=== PATIENT | male | born 1945 | race Caucasian/White ===

== ENCOUNTER → 2020-03-15 10:27 | Outpatient (CLI) | payer MEDICARE, SELFPAY ==
--- NOTE | 2020-03-15 10:33 | XR_ITS ---
PROCEDURE: XR CHEST 2V CLINICAL HISTORY: wheezing and crackles left base COMPARISON: No exams were available for comparison FINDINGS: The cardiomediastinal silhouette and pulmonary vascularity are within normal limits. The lungs are clear without infiltrates, suspicious nodules, or pleural effusions. There is a small to moderate size hiatal hernia seen through the cardiac shadow. There is a metallic nipple ring left-side. No acute bony abnormalities. There mild non recent compression fractures of 3 contiguous lower thoracic and or thoracolumbar vertebrae IMPRESSION: No acute findings. Dictated by: Dr. Miguel Garvin MD 03/15/2020 11:15 Dr. Miguel Garvin MD in [place] 03/15/2020 11:15
== END ==
PROVIDERS: PCP Family Medicine; Visit Provider Family Medicine
DX: J44.9 Chronic obstructive pulmonary disease, unspecified (principal)
CPT/HCPCS: 71046

== ENCOUNTER → 2020-04-11 15:07 | Outpatient (CLI) | payer MEDICARE, SELFPAY ==
[2020-04-11 15:18] LABS: Basophils % 0.7 % (0.1-2.0); Eosinophils # 0.1 K/mm3 (0.0-0.4); Eosinophils % 2.1 % (0.1-12.0); Hemoglobin 13.3 g/dL (14.1-18.0); Lymphocytes # 1.7 K/mm3 (0.7-4.5); Lymphocytes % 35.9 % (10-50); Mean Corpuscular HGB Conc 34.2 g/dL (31.8-35.4); Mean Corpuscular Hemoglobin 34.8 pg (27.0-31.2); Mean Corpuscular Volume 101.9 fl (80-94); Monocytes # 0.3 K/mm3 (0.1-1.0); Monocytes % 5.8 % (1.7-9.3); Neutrophils # 2.6 K/mm3 (1.8-7.8); Neutrophils % 55.5 % (37.0-80.0); Platelet Count 234 K/mm3 (142-424); Red Blood Count 3.83 M/mm3 (4.60-6.20); Red Cell Distribution Width 13.2 % (11.5-17.5); White Blood Count 4.6 K/mm3 (4.8-10.8)
[2020-04-11 15:35] LABS: Alanine Aminotransferase 14 U/L (12-78); Albumin Level 4.1 g/dl (3.5-5.0); Albumin/Globulin Ratio 1.6 (1.1-1.8); Alkaline Phosphatase 65 U/L (38-126); Anion Gap 11.2 mEq/L (5-15); Aspartate Amino Transferase 27 U/L (17-59); Bilirubin,Total 0.8 mg/dl (0.2-1.3); Blood Urea Nitrogen 12 mg/dl (9-20); Calcium 9.1 mg/dl (8.4-10.2); Carbon Dioxide 30 mmol/L (22.0-30.0); Chloride 97 mmol/L (98-107); Chol/HDL Ratio 2.9 (1-3.5); Cholesterol 270 mg/dl (140-200); Estimated Glomerular Filt Rate 110 ml/min (>60); GFR (African American) 133 ML/MIN (>60); Globulin 2.5 g/dL (1.3-3.2); Glucose 120 mg/dl (74-100); HDL Cholesterol 93 mg/dl (40-60); Potassium 4.2 mmoL/L (3.5-5.1); Sodium 134 mmol/L (136-145); Total Protein,Serum 6.6 g/dl (6.3-8.2); Triglycerides 128 mg/dl (30-150); VLDL Cholesterol 26 mg/dL (0-40)
[2020-04-11 15:46] LABS: Direct LDL Cholesterol 137.56 mg/dL (100-129)
[2020-04-11 16:06] LABS: Prostate Specific Ag Screen 6.8 ng/ml (0.0-4.0)
== END ==
PROVIDERS: Visit Provider Family Medicine
DX: I10 Essential (primary) hypertension (principal); J44.9 Chronic obstructive pulmonary disease, unspecified; Z12.5 Encounter for screening for malignant neoplasm of prostate
CPT/HCPCS: 80053; 80061; 85025; G0103

== ENCOUNTER → 2020-09-26 14:37 | Outpatient (CLI) | payer MEDICARE, SELFPAY ==
[2020-09-26 16:04] LABS: Basophils # 0.1 K/mm3 (0-0.2); Basophils % 1.3 % (0.1-2.0); Chloride 102 mmol/L (98-107); Eosinophils # 0.1 K/mm3 (0.0-0.4); Eosinophils % 1.8 % (0.1-12.0); Hematocrit 40.6 % (42.0-52.0); Hemoglobin 13.4 g/dL (14.1-18.0); Lymphocytes # 1.9 K/mm3 (0.7-4.5); Lymphocytes % 36.3 % (10-50); Mean Corpuscular Hemoglobin 33.2 pg (27.0-31.2); Mean Corpuscular Volume 100.5 fl (80-94); Mean Platelet Volume 9.6 fl (7.4-10.4); Monocytes # 0.3 K/mm3 (0.1-1.0); Monocytes % 4.9 % (1.7-9.3); Neutrophils # 2.9 K/mm3 (1.8-7.8); Neutrophils % 55.7 % (37.0-80.0); Platelet Count 303 K/mm3 (142-424); Red Blood Count 4.04 M/mm3 (4.60-6.20); Red Cell Distribution Width 13.5 % (11.5-17.5); Sodium 135 mmol/L (136-145); White Blood Count 5.2 K/mm3 (4.8-10.8)
[2020-09-26 16:05] LABS: Potassium 4.4 mmoL/L (3.5-5.1)
[2020-09-26 16:07] LABS: Alanine Aminotransferase 11 U/L (12-78); Albumin Level 4.2 g/dl (3.5-5.0); Albumin/Globulin Ratio 1.5 (1.1-1.8); Alkaline Phosphatase 72 U/L (38-126); Anion Gap 8.4 mEq/L (5-15); Aspartate Amino Transferase 23 U/L (17-59); Bilirubin,Total 0.8 mg/dl (0.2-1.3); Blood Urea Nitrogen 9 mg/dl (9-20); Carbon Dioxide 29 mmol/L (22.0-30.0); Cholesterol 239 mg/dl (140-200); Estimated Glomerular Filt Rate 110 ml/min (>60); GFR (African American) 133 ML/MIN (>60); Globulin 2.8 g/dL (1.3-3.2); Triglycerides 184 mg/dl (30-150); VLDL Cholesterol 37 mg/dL (0-40)
[2020-09-26 16:08] LABS: Calcium 9.3 mg/dl (8.4-10.2); Chol/HDL Ratio 3.1 (1-3.5); Glucose 109 mg/dl (74-100); HDL Cholesterol 78 mg/dl (40-60)
[2020-09-26 16:19] LABS: Direct LDL Cholesterol 114.28 mg/dL (100-129)
[2020-09-26 16:24] LABS: T4 (Thyroxine) 8.3 ug/dl (5.53-11.0)
[2020-09-26 16:37] LABS: Thyroid Stimulating Hormone 1.48 uIU/mL (0.465-4.68)
== END ==
PROVIDERS: Visit Provider Family Medicine
DX: N40.1 Benign prostatic hyperplasia with lower urinary tract symptoms (principal); N52.9 Male erectile dysfunction, unspecified; R97.20 Elevated prostate specific antigen [PSA]; G89.29 Other chronic pain; M25.511 Pain in right shoulder; R53.83 Other fatigue
CPT/HCPCS: 80053; 80061; 84436; 84443; 85025

== ENCOUNTER → 2020-10-17 14:18 | Outpatient (CLI) | payer MEDICARE, SELFPAY ==
[2020-10-17 16:58] LABS: Prostate Specific Ag, Diagnost 7.02 ng/ml (0.0-4.0)
== END ==
PROVIDERS: Visit Provider Family Medicine
DX: N40.1 Benign prostatic hyperplasia with lower urinary tract symptoms (principal); R39.14 Feeling of incomplete bladder emptying
CPT/HCPCS: 84153

== ENCOUNTER → 2021-03-27 11:21 | Outpatient (CLI) | payer MEDICARE, SELFPAY ==
--- NOTE | 2021-03-27 | CA_ITS ---
APPROVED REPORT Exam: Pharmacologic Technologist: Kayleigh Alvarado Ht: 4 ft 8 in Wt: 171 lbs BSA: 1.66 m2 HR: 63 bpm BP: 174/81 mmHg Medical History Medications: Lorazepam,,,,, Omeprazole,,,,, Metoprolol,,,,, Hydrocodone,,,,, Albuterol,,,,, Diclofenac,,,,, AZelastine,,,,, SilDENAFIL,,,,, Budesonide,,,,, TAdalafil,,,,, Furosemide,,,,, Stress Test Details Test: LEXISCAN HR Resting HR: 64 bpm Max Heart Rate (APMHR): 144.122660 bpm Max HR Achieved: 103 bpm Target HR (85% APMHR): 122.311243 bpm % of APMHR: 71.53 Recovery HR: 90 bpm BP Resting BP: 174.0/81.0 mmHg Max BP: 174.0/81.0 mmHg Recovery BP: 157.0/89.0 mmHg ECG Resting ECG: Normal Sinus Rhythm Clinical Reason for Termination: Completed Protocol Exercise duration: 04:04 min Highest Stage Achieved: Stress ECG Conclusion Non-diagnostic stress test. Patient received the infusion per protocol without chest pain, ST segment changes or arrhythmias. See the nuclear report for further information. Electronically signed by : Jimy Gillis MD 03/27/2021 19:35:19
--- NOTE | 2021-03-27 11:30 | NM_ITS ---
APPROVED REPORT Exam: Nuclear Stress Test Indication: chest pain..short of breath..fatigue Patient Location: Outpatient Stress Tech: Kayleigh Alvarado MD Tech:Wilda Weathers, ARRT, RT (R)(N) Ht: 5 ft 7 in Wt: 178 lbs HR: 63 bpm BP: 174/81 mmHg BSA: 1.92 m2 BMI: 27.8 History: chest pain..short of breath..fatigue Procedure: Patient received a 0.4 mg of intravenous Lexiscan, resting heart rate 63 bpm, resting blood pressure 174/81 mmHg, with Lexiscan maximum heart rate achived was 99 bpm which is Less than 85 % of the maximum predicted heart rate and blood pressure was 174/94 mmHg. With Lexiscan, patient denied any complaint of chest pain. Electrocardiogram Resting electrocardiogram showed sinus rhythm, with Lexiscan there is less than 1.[address] segment depression noted from the baseline EKG. The EKG portion of the Lexiscan is nondiagnostic. Cardiac Stress and Resting SPECT Images: Cardiac Stress and Resting SPECT images were obtained using technetium 99m Myoview 30.1 mCi stress and 10.31 mCi at rest. Gated SPECT for analysis of segmental wall motion and calculation of the ejection fraction also done. Cardiac stress and resting SPECT images show uniform myocardial activity without segmental perfusion abnormality, computer derived ejection fraction is 62% with no regional wall motion abnormality, right ventricle is normal size and contractility. Prone images were also obtained. Conclusion: 1. The EKG portion of the Lexiscan is nondiagnostic. 2. No scintigraphic evidence of reversible ischemia seen, compared right ejection fraction is 62% with no regional wall motion abnormality, right ventricle is normal size and contractility. 3. Normal Lexiscan Myoview study. Electronically signed by : Jimy Gillis MD 03/27/2021 19:39:18
--- NOTE | 2021-03-27 13:52 | HMH.ITSHM ---
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 []TRAZODONE SITAGLIPTIN SERTRALINE QUETIAPINE OMEPRAZOLE METOPROLOL METFORMIN LISINOPRIL GLIPIZIDE GABAPENTIN VITAMIN D2 VITAMIN D3 CANAGLIFLOZIN BUSPIRONE ATORVASTATIN ASA ALBUTEROL
== END ==
PROVIDERS: PCP Family Medicine; Visit Provider Family Medicine
DX: R07.9 Chest pain, unspecified (principal)
CPT/HCPCS: 78452; 93017; A9502; J2785

== ENCOUNTER → 2021-03-31 13:50 | Outpatient (CLI) | payer MEDICARE, SELFPAY ==
[2021-03-31 14:44] LABS: Basophils # 0.2 K/mm3 (0-0.2); Basophils % 2.8 % (0.1-2.0); Eosinophils # 0.2 K/mm3 (0.0-0.4); Eosinophils % 3.9 % (0.1-12.0); Hematocrit 43.2 % (42.0-52.0); Hemoglobin 14.2 g/dL (14.1-18.0); Lymphocytes # 2.1 K/mm3 (0.7-4.5); Lymphocytes % 38.4 % (10-50); Mean Corpuscular HGB Conc 32.9 g/dL (31.8-35.4); Mean Corpuscular Hemoglobin 34.3 pg (27.0-31.2); Mean Corpuscular Volume 104.3 fl (80-94); Mean Platelet Volume 9.8 fl (7.4-10.4); Monocytes # 0.2 K/mm3 (0.1-1.0); Monocytes % 4.4 % (1.7-9.3); Neutrophils # 2.7 K/mm3 (1.8-7.8); Neutrophils % 50.5 % (37.0-80.0); Platelet Count 305 K/mm3 (142-424); Red Blood Count 4.14 M/mm3 (4.60-6.20); Red Cell Distribution Width 13.6 % (11.5-17.5); White Blood Count 5.3 K/mm3 (4.8-10.8)
[2021-03-31 15:04] LABS: Chloride 98 mmol/L (98-107)
[2021-03-31 15:05] LABS: Potassium 4.6 mmoL/L (3.5-5.1); Sodium 136 mmol/L (136-145)
[2021-03-31 15:07] LABS: Alanine Aminotransferase 30 U/L (12-78); Albumin Level 4.4 g/dl (3.5-5.0); Albumin/Globulin Ratio 1.7 (1.1-1.8); Alkaline Phosphatase 73 U/L (38-126); Anion Gap 12.6 mEq/L (5-15); Aspartate Amino Transferase 32 U/L (17-59); Bilirubin,Total 0.6 mg/dl (0.2-1.3); Blood Urea Nitrogen 12 mg/dl (9-20); Carbon Dioxide 30 mmol/L (22.0-30.0); Cholesterol 217 mg/dl (140-200); Estimated Glomerular Filt Rate 94 ml/min (>60); GFR (African American) 114 ML/MIN (>60); Globulin 2.6 g/dL (1.3-3.2); Triglycerides 231 mg/dl (30-150); VLDL Cholesterol 46 mg/dL (0-40)
[2021-03-31 15:08] LABS: Chol/HDL Ratio 3.4 (1-3.5); Glucose 104 mg/dl (74-100); HDL Cholesterol 64 mg/dl (40-60)
[2021-03-31 15:19] LABS: Direct LDL Cholesterol 96.02 mg/dL (100-129)
[2021-03-31 21:29] LABS: Prostate Specific Ag, Diagnost 6.76 ng/ml (0.0-4.0)
== END ==
PROVIDERS: Visit Provider Family Medicine
DX: M25.511 Pain in right shoulder (principal); F41.9 Anxiety disorder, unspecified; E78.5 Hyperlipidemia, unspecified; R97.20 Elevated prostate specific antigen [PSA]
CPT/HCPCS: 80053; 80061; 84153; 85025

== ENCOUNTER → 2021-10-24 13:31 | Outpatient (CLI) | payer MEDICARE, SELFPAY ==
[2021-10-24 13:22] LABS: Basophils # 0.1 K/mm3 (0-0.2); Basophils % 1.4 % (0.1-2.0); Eosinophils # 0.1 K/mm3 (0.0-0.4); Hematocrit 42.6 % (42.0-52.0); Hemoglobin 13.6 g/dL (14.1-18.0); Lymphocytes # 1.6 K/mm3 (0.7-4.5); Lymphocytes % 35.6 % (10-50); Mean Corpuscular HGB Conc 31.9 g/dL (31.8-35.4); Mean Corpuscular Hemoglobin 34.5 pg (27.0-31.2); Mean Corpuscular Volume 108.1 fl (80-94); Mean Platelet Volume 9.7 fl (7.4-10.4); Monocytes # 0.2 K/mm3 (0.1-1.0); Monocytes % 4.3 % (1.7-9.3); Neutrophils # 2.7 K/mm3 (1.8-7.8); Neutrophils % 57.7 % (37.0-80.0); Platelet Count 291 K/mm3 (142-424); Red Blood Count 3.94 M/mm3 (4.60-6.20); Red Cell Distribution Width 15.2 % (11.5-17.5); White Blood Count 4.6 K/mm3 (4.8-10.8)
[2021-10-24 13:42] LABS: Alanine Aminotransferase 27 U/L (12-78); Albumin Level 4.8 g/dl (3.5-5.0); Alkaline Phosphatase 74 U/L (38-126); Anion Gap 11.2 mEq/L (5-15); Aspartate Amino Transferase 32 U/L (17-59); Bilirubin,Total 0.8 mg/dl (0.2-1.3); Blood Urea Nitrogen 16 mg/dl (9-20); Calcium 8.8 mg/dl (8.4-10.2); Carbon Dioxide 28 mmol/L (22.0-30.0); Chloride 99 mmol/L (98-107); Chol/HDL Ratio 2.7 (1-3.5); Cholesterol 243 mg/dl (140-200); Estimated Glomerular Filt Rate 94 ml/min (>60); GFR (African American) 114 ML/MIN (>60); Globulin 2.4 g/dL (1.3-3.2); Glucose 96 mg/dl (74-100); HDL Cholesterol 90 mg/dl (40-60); Potassium 4.2 mmoL/L (3.5-5.1); Sodium 134 mmol/L (136-145); Total Protein,Serum 7.2 g/dl (6.3-8.2); Triglycerides 141 mg/dl (30-150); VLDL Cholesterol 28 mg/dL (0-40)
[2021-10-24 13:53] LABS: Direct LDL Cholesterol 110.24 mg/dL (100-129)
[2021-10-24 14:14] LABS: Prostate Specific Ag Screen 8.2 ng/ml (0.0-4.0); Thyroid Stimulating Hormone 2.24 uIU/mL (0.465-4.68)
== END ==
PROVIDERS: Visit Provider Family Medicine
DX: M25.511 Pain in right shoulder (principal); Z87.898 Personal history of other specified conditions; R53.83 Other fatigue; R97.20 Elevated prostate specific antigen [PSA]; N52.9 Male erectile dysfunction, unspecified; Z12.5 Encounter for screening for malignant neoplasm of prostate
CPT/HCPCS: 80053; 80061; 84443; 85025; G0103

== ENCOUNTER → 2023-07-23 23:08 | Outpatient (CLI) | payer MEDICARE, SELFPAY ==
[2023-07-23 22:52] LABS: Amphetamine/Metha Screen,Urine Negative ng/ml (<1000); Barbiturates Screen,Urine Negative ng/ml (<200); Benzodiazepines Screen,Urine Negative ng/ml (<200); Cannabinoid Screen,Urine Negative ng/ml (<50); Cocaine Screen,Urine Negative ng/ml (<300); Methadone Screen,Urine Negative ng/ml (<300); Opiate Screen,Urine Positive ng/ml (<300); Phencyclidine Screen,Urine Negative ng/ml (<25)
== END ==
PROVIDERS: PCP Family Medicine; Visit Provider Family Medicine
DX: M25.511 Pain in right shoulder (principal); Z79.899 Other long term (current) drug therapy
CPT/HCPCS: 80305

== ENCOUNTER 2023-07-30 09:30 | Outpatient (RCR) | payer MEDICARE, SELFPAY ==
--- NOTE | 2023-07-08 13:47 | HMH.PTOPWND ---
Rehab Outpt Wound Evaluation Rehab OP Wound Evaluation Start: 07/08/23 12:58 Freq: Status: Active Protocol: Document 07/08/23 13:40 PHONAKUL (Rec: 07/08/23 13:47 PHORNE [id number]) E-signed By Dhiraj Pope, PT Subjective/History History History This is the initial PT eval for Rolf Benito, 78 yowm who presents with chronic wound of the L vora x ~ 4 mos. He reports, A welding cart fell over on me and scraped my leg. He reports hx of COPD, prostate cancer with XRT, and L hip OA. Subjective Subjective He reports failry consistent pain in the L LE wound 12/05. 2 + pitting edema noted in B LE. New diagnosis of cancer in past 12 No months? Wound Eval Wound Left Vora Wound Type Skin Tear Is This a Chronic Wound Yes Wound Length (cm) 5.0 Wound Width (cm) 2.5 Wound Depth (cm) 0.2 Wound Bed Appearance Beefy Red,Yellow Percentage Granulated (%) 50 Percentage of Slough (%) 50 Wound Margins Description Well Defined Surrounding Tissue Appearance [place] Edema Type Pitting Edema Degree 2+ Query Text:1+ Trace, Barely Detectable, Rebound 15-30 seconds 2+ Moderate, Slight Indentation, Rebound 10-20 seconds 3+ Deep, Deeper Indentation, Rebound > 30 seconds 4+ Very Deep, Rebound > 60 seconds Drainage Description Serous Drainage Amount Moderate Wound Topical Solution/Irrigant Saline Irrigant Primary Dressing Silver Dressing Comment therahoney gel, Opticell Ag Wound Secondary Dressing Type Composite Comment optifoam gentle SA Wound Debridement Amount of Tissue Minimal Removed Dressing Change Patient Tolerance Tolerated Well Wound Problems/Impairments Impairments Problems/Impairmments Palpation Tenderness,Impaired Gait Pattern,Impaired Walking, Impaired Household Care, Increased Edema,Lymphedema Present,Wound Care Needs, Subjective C/O Pain,Impaired Self Care/Self Management Prognosis Rehab Potential Good Clinical Impression Consistent with Diagnosis Yes Short Term Goals Number of Weeks 2 Decrease Edema Yes: 1+ pitting edema Decrease Wound Area Yes: by 25% Decrease Subjective C/O Pain Yes: 11/05 Assistant Track And Field Coach Goals Number of Weeks 4 Decrease Edema Yes: no pitting edema Decrease Wound Area Yes: by 75% Decrease Subjective C/O Pain Yes: 09/07 Patient to be Ind w/ Home Wound Care/ Yes Dressing Changes Outpatient Therapy Plan of Care Treatment Plan May Include Therapeutic Exercise Including Home Yes Exercise Program Manual Therapy Techniques Yes Neuromuscular Re-education Yes Therapeutic Activities to Return to Yes Previous Functional/Work Level ADL/Self Care Education Yes Manual Lymphatic Drainage Yes Wound Care Yes Eval/Re-Eval Yes Frequency Times per week 1-2 Duration Number of Weeks 4 Addendums This patient is a candidate for social No or vocational rehab? Patient/Guardian verbally acknowledges Yes understanding of treatment program and consents to further treatment? Patient/Guardian verbally acknowledges Yes understanding of diagnosis, prognosis and goals for treatment? Eval Complexity PT Charges 00998 - High Complexity PHYSICIAN CERTIFICATION: I certify the specified therapy services for Rolf Benito are required, authorized, and reviewed every 30 days.
== END 2023-07-30 10:30 | disposition home or self-care (01) ==
LOC: PT 09:30
PROVIDERS: PCP Family Medicine; Visit Provider Family Medicine
DX: M79.662 Pain in left lower leg (principal); S81.802A Unspecified open wound, left lower leg, initial encounter
CPT/HCPCS: 97163; 97597

== ENCOUNTER 2023-09-06 21:49 | Outpatient (CLI) | payer MEDICARE, SELFPAY ==
[2023-09-06 22:38] LABS: Chloride 105 mmol/L (98-107)
[2023-09-06 22:39] LABS: Potassium 5.5 mmoL/L (3.5-5.1); Sodium 134 mmol/L (136-145)
[2023-09-06 22:41] LABS: Alanine Aminotransferase 18 U/L (12-78); Alkaline Phosphatase 111 U/L (38-126); Anion Gap 7.5 mEq/L (5-15); Aspartate Amino Transferase 38 U/L (17-59); Bilirubin,Total 0.3 mg/dl (0.2-1.3); Blood Urea Nitrogen 13 mg/dl (9-20); Carbon Dioxide 27 mmol/L (22.0-30.0); Estimated Glomerular Filt Rate 93 ml/min (>60); GFR (African American) 113 ML/MIN (>60)
[2023-09-06 22:42] LABS: Albumin Level 3.7 g/dl (3.5-5.0); Albumin/Globulin Ratio 1.7 (1.1-1.8); Calcium 8.6 mg/dl (8.4-10.2); Globulin 2.2 g/dL (1.3-3.2); Glucose 93 mg/dl (74-100); Total Protein,Serum 5.9 g/dl (6.3-8.2)
== END 2023-09-06 23:59 ==
LOC: LAB.DROPOF 21:50
PROVIDERS: PCP Family Medicine; Visit Provider Family Medicine
DX: Z79.899 Other long term (current) drug therapy (principal)
CPT/HCPCS: 80053

== ENCOUNTER 2024-08-07 10:33 | Outpatient (CLI) | payer MEDICARE, SELFPAY ==
[2024-08-07 18:08] LABS: Basophils # 0.1 K/mm3 (0-0.2); Basophils % 1.3 % (0.1-2.0); Eosinophils # 0.2 K/mm3 (0.0-0.4); Eosinophils % 2.9 % (0.1-12.0); Hematocrit 31.8 % (42.0-52.0); Hemoglobin 10.6 g/dL (14.1-18.0); Lymphocytes # 1.7 K/mm3 (0.7-4.5); Lymphocytes % 30.2 % (10-50); Mean Corpuscular HGB Conc 33.3 g/dL (31.8-35.4); Mean Corpuscular Hemoglobin 33.4 pg (27.0-31.2); Mean Corpuscular Volume 100.3 fl (80-94); Mean Platelet Volume 11.2 fl (7.4-10.4); Monocytes # 0.6 K/mm3 (0.1-1.0); Monocytes % 9.9 % (1.7-9.3); Neutrophils # 3.1 K/mm3 (1.8-7.8); Neutrophils % 55.3 % (37.0-80.0); Platelet Count 277 K/mm3 (142-424); Red Blood Count 3.17 M/mm3 (4.60-6.20); White Blood Count 5.6 K/mm3 (4.8-10.8)
[2024-08-07 18:32] LABS: Alanine Aminotransferase 21 U/L (12-78); Albumin Level 4.1 g/dl (3.5-5.0); Albumin/Globulin Ratio 2.3 (1.1-1.8); Alkaline Phosphatase 75 U/L (38-126); Anion Gap 10.2 mEq/L (5-15); Aspartate Amino Transferase 30 U/L (17-59); Bilirubin,Total 0.2 mg/dl (0.2-1.3); Blood Urea Nitrogen 17 mg/dl (9-20); Carbon Dioxide 28 mmol/L (22.0-30.0); Chloride 99 mmol/L (98-107); Estimated Glomerular Filt Rate 81 ml/min (>60); GFR (African American) 98 ML/MIN (>60); Globulin 1.8 g/dL (1.3-3.2); Glucose 98 mg/dl (74-100); Potassium 4.2 mmoL/L (3.5-5.1); Sodium 133 mmol/L (136-145); Total Protein,Serum 5.9 g/dl (6.3-8.2)
[2024-08-07 19:02] LABS: Prostate Specific Ag Screen 0.4 ng/ml (0.0-4.0)
== END 2024-08-07 23:59 | disposition home or self-care (01) ==
LOC: LAB.DROPOF 08-10 10:35
PROVIDERS: PCP Family Medicine; Visit Provider Family Medicine
DX: Z12.5 Encounter for screening for malignant neoplasm of prostate (principal); M21.372 Foot drop, left foot
CPT/HCPCS: 80053; 85025; G0103

== ENCOUNTER 2025-04-16 10:36 | Outpatient (CLI) | payer MEDICARE, SELFPAY ==
--- OUTSIDE RECORDS SUMMARY | 2025-02-23 11:03 | XMS_ITS | Encounter Summary ---
Author Organization [place] [address] Care Team Providers Care Truck Rental Manager Name Role Phone Rolf Joel MD Primary Care Provider Bj Whitfield MD Unavailable [phone] Encounter Details Date Type Department Care Team (Latest Contact Info) Description 02/23/2025 11:03 AM EDT - 02/23/2025 11:59 PM EDT Hospital Encounter ALEXANDER Chavez [facility] [address] [place] [address] Acute systolic heart failure (HCC); NSTEMI (non-ST elevated myocardial infarction) (HCC); Primary hypertension; Pure hypercholesterolemia Discharge Disposition: Home or Self Care Social History Tobacco Use Types Packs/Day Years Used Date Smoking Tobacco: Never Smokeless Tobacco: Never Alcohol Use Standard Drinks/Week Comments Yes 6 (1 standard drink = 0.6 oz pur e alcohol) [facility] Utilities Answer Date Recorded In the past 12 months has [employer], gas, oil, or water [employer] threatened to shut off services in your home? No 10/26/2024 Overall Financial Resource Strain (CARDIA) Answe r Date Recorded How hard is it for you to pa y for the very basics like food, housing, medical care, and heating? Not hard at all 10/26/2024 PHQ-2 Answer Date Recorded PHQ-2 Total Score 0 10/26/2024 [facility] Occupat ional [facility] - Occupational Stress Questionnaire Answer Date Recorded Do you feel stress - tense, restless, nervous, or anxious, or unable to sleep at night because your mind is troubled all the time - these days? Not at all 10/26/2024 Exercise Vital Sign Answer Date Recorde d On average, how many days pe r week do you engage in moderate to strenuous exercise (like a brisk walk)? 2 days 10/26/2024 On average, how many minutes do you engage in exercise at this level? 20 min 10/26/2024 Hunger Vital Sign Answer Date Recorded Within the past 12 months, y ou worried that your food would run out before you got the money to buy more. Never true 10/27/19 25 Within the past 12 months, t he food you bought just didn't last and you didn't have money to get more. Never true 10/26/2024 [facility] IP Transportation Answer D ate Recorded In the past 12 months, has l ack of reliable transportation kept you from medical appointments, meetings, work or from getting things needed for daily living? No 10/26/2024 Sex and Gender Information Value Date Recorded Sex Assigned at Not on file Legal Sex Male 10:22 AM ANURADHA Gender Identity Not on file Sexual Orientation Not on file documented as of this encounter Functional Status * Is the person deaf or does he/she have serious difficulty hearing? Answer Date of Assessment Author No 10/26/2024 9:36 AM Valerie Chang RN * Is the person blind or does he/she have serious difficulty seeing even when wearing glasses? Answer Date of Assessment Author No 10/26/2024 9:36 AM Valerie Chang RN * Does this person have serious difficulty walking or climbing stairs? Answer Date of Assessment Author No 10/26/2024 9:36 AM Valerie Chang RN * Does this person have difficulty dressing or bathing? Answer Date of Assessment Author No 10/26/2024 9:36 AM Valerie Chang RN * Because of a physical, mental or emotional condition, does this person have difficulty doing errands alone such as visiting a doctor's office or shopping? Answer Date of Assessment Author No 10/26/2024 9:36 AM Valerie Chang RN documented as of this encounter Mental Status * Because of a physical, mental or emotional condition, does this person have serious difficulty concentrating, remembering or making decisions? Answer Entry Date Author No 10/26/2024 9:36 AM EDT Valerie French RN documented in this encounter Medications at Time of Discharge aspirin 81 mg Oral Tablet, Chewable Take 1 Tablet by mouth daily. 30 Tablet 07/31/2023 atorvastatin (LIPITOR) 40 mg Oral Tablet Take 1 Tablet by mouth nightly. 90 Tablet 3 10/27/2024 1:10 PM EDT 10/27/2024 clopidogreL (PLAVIX) 75 mg Oral Tablet Take 1 Tablet by mouth daily. 90 Tablet 3 10/27/2024 1:10 PM EDT 10/28/2024 diclofenac (VOLTAREN) 75 mg Oral Tablet, Delayed Release (E.C.) Take 1 Tablet by mouth every morning. 100 mg. TALK with Your MD for alternative if any. 10/27/2024 docusate sodium (COLACE) 100 mg Oral CapsuleIndication s:S/P total left hip arthroplasty TAKE 1 CAPSULE BY MOUTH TWICE A DAY NEEDED FOR CONSTIPATION 30 Capsule 10/18/2023 fluticasone propionate (FLONASE) 50 mcg/actuation Nasl Mermentau, Suspension daily as needed. 12/19/2021 HYDROcodone-aceta minophen (NORCO) 10-325 mg Oral TabletIndications :pain Take 1 Tablet by mouth every 6 hours as needed for Chronic Pain (G89.29). Chronic back and hip pain Indications: pain LORazepam (ATIVAN) 1 mg Oral Tablet Take 1 mg by mouth every 12 hours as needed. losartan (COZAAR) 25 mg Oral Tablet Take 1 Tablet by mouth daily. 30 Tablet 11 10/27/2024 1:10 PM EDT 10/28/2024 metoprolol succinate ER (TOPROL-XL) 100 mg Oral Tablet Sustained Release 24 hr Take 100 mg by mouth daily. 08/10/2024 nalOXone (NARCAN) 4 mg/actuation Nasl Mermentau, Non-Aerosol 0.1 mL by Nasal route as needed for Opioid Reversal. 1 Each 07/31/2023 pantoprazole (PROTONIX) 40 mg Oral Tablet, Delayed Release (E.C.) Take 1 Tablet by mouth 2 times daily. 180 Tablet 3 10/27/2024 1:10 PM EDT 10/27/2024 rOPINIRole (REQUIP) 1 mg Oral TabletIndications :restless leg syndrome Take 1 mg by mouth 2 times daily as needed for Other (takes at HS). Indications: restless legs syndrome, an extreme discomfort in the calf muscles when sitting or lying down spironolactone (ALDACTONE) 25 mg Oral Tablet Take one-half tablet (12.5 mg) by mouth daily. 15 Tablet 11 10/27/2024 1:10 PM EDT 10/28/2024 tamsulosin (FLOMAX) 0.4 mg Oral CapsuleIndication s:Prostate cancer (HCC) Take 1 Capsule by mouth daily. 90 Capsule 3 11/21/2022 testosterone cypionate (DEPOTESTOTERONE CYPIONATE) 200 mg/mL IM Oil Inject 200 mg into the muscle every 14 days. 10/07/2024 torsemide (DEMADEX) 20 mg Oral TabletIndications :Shortness of breath,Acute on chronic diastolic heart failure (HCC) Take 1 Tablet by mouth daily. 30 Tablet 11 01/24/2023 documented as of this encounter Discharge Disposition Disposition Code Departure Means Destination Home or Self Care documented in this encounter Plan of Treatment Upcoming Encounters Date Type Department Care Team (Late st Contact Info) Description 05/10/2025 9:45 AM EDT Appointment [facility] [address] [facility] [address] [place] [address] Paris Fontaine, POWDERED METAL SUPERVISOR [address] [address] 07/15/2025 10:45 AM EST Office Visit [facility] [address] [place] [address] Dhiraj Wallace MD [address] [address] documented as of this encounter Procedures Procedure Name Priority Date/Time Associated Diagnosis Comments LIPID PANEL REFLEX Routine 02/23/2025 11:04 AM EDT Pure hypercholesterolemia CBC Routine 02/23/2025 11:04 AM EDT Primary hypertension COMPREHENSIVE METABOLIC PANEL Routine 02/23/2025 11:04 AM EDT Primary hypertension documented in this encounter Results * (ABNORMAL) CBC (02/23/2025 11:04 AM EDT) Pathologist [facility] WBC 7.6 3.7 - 10.3 x10(3)/mcL 02/23/2025 4:04 PM EDT [facility] RBC 3.38(L) 4.60 - 6.10 x10(6)/mcL 02/23/2025 4:04 PM EDT [facility] Hgb 11.7(L) 13.7 - 17.5 g/dL 02/23/2025 4:04 PM EDT [facility] Hct 34.8(L) 40.0 - 51.0 % 02/23/2025 4:04 PM EDT [facility] MCV 103.0(H) 80.0 - 100.0 fL 02/23/2025 4:04 PM EDT [facility] MCH 34.6(H) 26.0 - 34.0 pg 02/23/2025 4:04 PM EDT [facility] MCHC 33.6 30.7 - 35.5 g/dL 02/23/2025 4:04 PM EDT [facility] RDW 15.7(H) <=14.9 % 02/23/2025 4:04 PM EDT [facility] Platelet 252 155 - 369 x10(3)/mcL 02/23/2025 4:04 PM EDT [facility] MPV 10.5 8.8 - 12.5 fL 02/23/2025 4:04 PM EDT [facility] Blood VENOUS BLOOD / Unknown Venipuncture / Unknown 02/23/2025 11:04 AM EDT 02/23/2025 11:05 AM EDT us Charisse Barry RPG PROGRAMMER HEMATOLOGY ORDERABLES Final Result [facility] [address] [facility] , [place] [address] * LIPID PANEL REFLEX (02/23/2025 11:04 AM EDT) Pathologist [facility] Cholesterol 111 <200 mg/dL 02/23/2025 6:26 PM EDT [facility] Comment: < 200 Desirable 200 - 239 Borderline High >= 240 High Triglyceride 78 <150 mg/dL 02/23/2025 6:26 PM EDT [facility] Comment: < 150 Normal 150 - 199 Borderline High 200 - 499 High >= 500 Very High HDL 53 >=40 mg/dL 02/23/2025 6:26 PM EDT [facility] Comment: > 60 Optimal 40 - 60 Acceptable < 40 Low LDL Calculated 42 <100 mg/dL 02/23/2025 6:26 PM EDT [facility], [facility] Comment: < 100 Optimal 100 - 129 Near or above optimal 130 - 159 Borderline High 160 - 189 High >= 190 Very High The National Institutes of Health (NIH) equation is used for all lipid panels that report calculated LDL (LDL-C). Non-HDL-C Calculated 58 <=129 mg/dL 02/23/2025 6:26 PM EDT [facility], [facility] Comment: <130 Desirable 130-159 Above Desirable 160-189 Borderline High 190-219 High >= 220 Very High Fasting Specimen? No None 025 6:26 PM EDT [facility], [facility] Blood VENOUS BLOOD / Unknown Venipuncture / Unknown 02/23/2025 11:04 AM EDT 02/23/2025 11:05 AM EDT us Charisse Barry RPG PROGRAMMER CHEMISTRY ORDERABLES Final R esult [facility] [address] , [place] [address] * (ABNORMAL) COMPREHENSIVE METABOLIC PANEL (02/23/2025 11:04 AM EDT) Sodium 134(L) 136 - 145 mmol/L 02/23/2025 6:26 PM EDT [facility] Potassium 3.4(L) 3.5 - 5.0 mmol/L 02/23/2025 6:26 PM EDT [facility] Chloride 94(L) 98 - 107 mmol/L 02/23/2025 6:26 PM EDT [facility] Total CO2 28 22 - 29 mmol/L 02/23/2025 6:26 PM EDT [facility] Anion Gap 12 7 - 16 mmol/L 02/23/2025 6:26 PM EDT [facility] Calcium 8.9 8.8 - 10.4 mg/dL 02/23/2025 6:26 PM EDT [facility] Glucose Lvl 146(H) 70 - 99 mg/dL 02/23/2025 6:26 PM EDT [facility] BUN 10 8 - 23 mg/dL 02/23/2025 6:26 PM EDT [facility] Creatinine 0.88 0.67 - 1.30 mg/dL 02/23/2025 6:26 PM EDT [facility] Albumin 4.0 3.2 - 4.6 gm/dL 02/23/2025 6:26 PM EDT [facility] Total Protein 6.1(L) 6.4 - 8.3 gm/dL 02/23/2025 6:26 PM EDT [facility] Bili Total 0.9 0.2 - 1.4 mg/dL 02/23/2025 6:26 PM EDT [facility] ALT 15 <=41 U/L 02/23/2025 6:26 PM EDT [facility] AST 18 <=40 U/L 02/23/2025 6:26 PM EDT [facility] Alk Phos 69 40 - 129 U/L 02/23/2025 6:26 PM EDT [facility] eGFR (CKD-EPIcr 2020) 87 >=60 mL/min/1.7 3 m2 02/23/2025 6:26 PM EDT [facility] Comment:Estimated GFR was ca lculated using the CKD-EPIcr (2020) equation refit without race. The equation is recommended by the National Kidney Foundation - [place] Society of Nephrology Task Force. Blood VENOUS BLOOD / Unknown Venipuncture / Unknown 02/23/2025 11:04 AM EDT 02/23/2025 11:05 AM EDT us Charisse Barry RPG PROGRAMMER CHEMISTRY ORDERABLES Final R esult [facility] [address] [facility] [facility] , [address] [place], [place] [id number] documented in this encounter Visit Diagnoses Diagnosis Acute systolic heart failure (HCC) Acute systolic heart failure NSTEMI (non-ST elevated myocardial infarction) (HCC) Acute myocardial infarction, subendocardial infarction, episode of care unspecified Primary hypertension Unspecified essential hypertension Pure hypercholesterolemia documented in this encounter Orders Lab Orders Without Results Count Last Ordered D ate First Ordered Date BASIC METABOLIC PANEL 1 02/23/2025 documented in this encounter Additional Health Concerns Assessment Noted Time A fall risk assessment has been complete d for the patient 09/20/2022 8:28 AM EST documented as of this encounter Care Teams Truck Rental Manager Relationship Specialty Start Date End Date Rolf Joel MD PCP - General Family Medicine 03/15/15 Bj Gramajo MD [address] [facility] [place], [place] [id number] Radiation Oncologist Radiology-Radiation Oncology 11/03/24 documented as of this encounter
[2025-04-16 15:05] LABS: Hematocrit 37.8 % (42.0-52.0); Hemoglobin 12.6 g/dL (14.1-18.0); Immature Granulocytes % 0.4 %; Mean Corpuscular HGB Conc 33.3 g/dL (31.8-35.4); Mean Corpuscular Hemoglobin 34.6 pg (27.0-31.2); Mean Corpuscular Volume 103.8 fl (80-94); Nucleated Red Blood Cells % 0 %; Platelet Count 259 K/mm3 (142-424); Red Blood Count 3.64 M/mm3 (4.60-6.20); Red Cell Distribution Width-SD 58.7 fL; White Blood Count 5.0 K/mm3 (4.8-10.8)
[2025-04-16 15:27] LABS: Albumin Level 4.1 g/dl (3.5-5.0); Chloride 96 mmol/L (98-107); Sodium 135 mmol/L (136-145)
[2025-04-16 15:28] LABS: Potassium 3.7 mmoL/L (3.5-5.1)
[2025-04-16 15:30] LABS: Alanine Aminotransferase 18 U/L (12-78); Albumin/Globulin Ratio 2.0 (1.1-1.8); Anion Gap 13.7 mEq/L (5-15); Aspartate Amino Transferase 41 U/L (17-59); Blood Urea Nitrogen 16 mg/dl (9-20); Carbon Dioxide 29 mmol/L (22.0-30.0); Creatinine,Serum 0.90 mg/dl (0.66-1.25); Estimated Glomerular Filt Rate 81 ml/min (>60); GFR (African American) 98 ML/MIN (>60); Globulin 2.1 g/dL (1.3-3.2); Total Protein,Serum 6.2 g/dl (6.3-8.2)
[2025-04-16 15:31] LABS: Alkaline Phosphatase 71 U/L (38-126); Bilirubin,Total 1.2 mg/dl (0.2-1.3); Calcium 8.8 mg/dl (8.4-10.2); Cholesterol 112 mg/dl (140-200); Glucose 97 mg/dl (74-100); HDL Cholesterol 58 mg/dl (40-60); Triglycerides 89 mg/dl (30-150)
[2025-04-16 16:18] LABS: Hepatitis C Ab Qual. W/ RFX NEGATIVE (Negative)
[2025-04-18 08:15] LABS: Hepatitis B Surface Antigen Negative (Negative); Testosterone,Total 748 ng/dL (264-916)
--- OUTSIDE RECORDS SUMMARY | 2025-04-19 10:26 | XMS_ITS | Encounter Summary ---
Author Organization [place] [address] Care Team Providers Care Rotating Field Assembler Name Role Phone Rolf Joel MD Primary Care Provider Nadine Moran RN Unavailable [phone] Bj Gramajo MD Unavailable [phone] Encounter Details Date Type Department Care Team (Late Contact Info) Description 08/10/[address] [facility] [address] [facility] [address] [facility] Zurdo Corley MD [address] [place] [address] Social History Tobacco Use Types Packs/Day Years Used Date Smoking Tobacco: Never Smokeless Tobacco: Never Alcohol Use Standard Drinks/Week Comments Yes 12 (1 standard drink = 0.6 oz pu re alcohol) Sex and Gender Information Value Date Recorded Sex Assigned at Not on file Legal Sex Male 10:22 AM EDT Gender Identity Not on file Sexual Orientation Not on file COVID-19 Exposure Response Date Recorded In the last 10 days, have yo u been in contact with someone who was confirmed or suspected to have Coronavirus/COVID-19? No / Unsure 08/10/2022 2:25 PM EST documented as of this encounter Plan of Treatment Upcoming Encounters Date Type Department Care Team (Late Contact Info) Description 05/10/2025 9:45 AM EDT Appointment [facility] [address] [place] [address] Paris Fontaine, ROCK LOADER [address] [place] [address] [place] [address] 07/15/2025 10:45 AM EST Office Visit [facility] [address] [place] [address] Dhiraj Wallace MD [address] [place] [address] documented as of this encounter Visit Diagnoses Not on filedocumented in this encounter Care Teams Rotating Field Assembler Relationship Specialty Start Date End Date Rolf Joel MD PCP - General Family Medicine 03/15/15 Nadine Garcia, RN Oncology Nurse Navigator 09/24/22 12/25/22 Bj Gramajo MD [address] [facility] [place] [address] Radiation Oncologist Radiology-Radiation Oncology 11/03/24 documented as of this encounter
--- OUTSIDE RECORDS SUMMARY | 2025-04-19 10:27 | XMS_ITS | Encounter Summary ---
Author Organization [place] [address] Care Team Providers Care Board Member Name Role Phone Rolf Joel MD Primary Care Provider Bj Whitfield MD Unavailable [phone] Encounter Details Date Type Department Care Team (Latest Contact Info) Description 02/25/2025 Results Follow-Up [facility] [address] [place] [address] Charisse Barry, [employer] [address] [place] [address] COMPREHENSIVE METABOLIC PANEL, LIPID PANEL REFLEX, CBC Social History Tobacco Use Types Packs/Day Years Used Date Smoking Tobacco: Never Smokeless Tobacco: Never Alcohol Use Standard Drinks/Week Comments Yes 6 (1 standard drink = 0.6 oz pur e alcohol) [facility] Utilities Answer Date Recorded In the past 12 months has [employer], gas, oil, or water [employer] threatened to shut off services in your home? No 10/26/2024 Overall Financial Resource Strain (CARDIA) Answe r Date Recorded How hard is it for you to pa y for the very basics like food, housing, medical care, and heating? Not hard at all 10/26/2024 PHQ-2 Answer Date Recorded PHQ-2 Total Score 0 10/26/2024 [facility] - Occupational Stress [...] money to get more. Never true 10/26/2024 [facility] IP Transportation Answer D ate Recorded [...] Entry Date Author No 10/26/2024 9:36 AM Valerie Chang, RN documented in this encounter Plan of Treatment Upcoming Encounters Date Type Department Care Team (Late st Contact Info) Description 05/10/2025 9:45 AM EDT Appointment [facility] [address] [place] [address] Paris Fontaine, ELYSSA [address] [place], [place] [id number] 07/15/2025 10:45 AM EST Office Visit [facility] [address] [place] [address] Dhiraj Wallace MD [address] [place] [address] documented as of this encounter Visit Diagnoses Not on filedocumented in this encounter Additional Health Concerns Assessment Noted Time A fall risk assessment has been complete d for the patient 09/20/2022 8:28 AM EST documented as of this encounter Care Teams Board Member Relationship Specialty Start Date End Date Rolf Joel MD PCP - General Family Medicine 03/15/15 Bj Gramajo MD [address] [facility] [place] [address] Radiation Oncologist Radiology-Radiation Oncology 11/03/24 documented as of this encounter
--- OUTSIDE RECORDS SUMMARY | 2025-04-19 10:27 | XMS_ITS | Continuity of Care Document ---
Author Organization [facility] [place] [address] Phone Care Team Providers Care Advertising Columnist Name Role Phone Lyn Joel MD Primary Care Provider Bj Whitfield MD Unavailable [phone] Encounters Date Type Department Care Team Description 02/25/2025 Results Follow-Up [facility] [place] [phone] Charisse Barry APRN COMPREHENSIVE METABOLIC PANEL, LIPID PANEL REFLEX, CBC 02/23/2025 11:03 AM EDT - 02/23/2025 11:59 PM EDT Hospital Encounter [facility] [address] [place] [address] Acute systolic heart failure (HCC); NSTEMI (non-ST elevated myocardial infarction) (HCC); Primary hypertension; Pure hypercholesterolemia Discharge Disposition: Home or Self Care 02/03/2025 8:46 AM EDT - 02/03/2025 11:59 PM EDT Hospital Encounter [facility] [address] [place] [address] Bj Gramajo MD Prostate cancer (HCC) (Primary Dx) Discharge Disposition: Home or Self Care 02/02/2025 10:17 AM EDT - 02/02/2025 11:59 PM EDT Hospital Encounter [facility] [address] [place] [address] Prostate cancer (HCC) Discharge Disposition: Home or Self Care 11/11/2024 Patient Outreach [facility] [address] [place] [address] Martine Gaston RPH Medication Management 11/10/2024 2:30 PM EDT Office Visit [facility] [place] [address] [place] [address] Charisse Barry APRN Primary hypertension (Primary Dx); Pure hypercholesterolemia; Shortness of breath; Ischemic cardiomyopathy; ASHD (arteriosclerotic heart disease) 10/29/2024 10:15 AM EDT - 10/29/2024 10:25 AM EDT Hospital Encounter [place] [address] Encounter for follow-up examination after radiotherapy for malignant neoplasm; Personal history of prostate cancer Discharge Disposition: Home or Self Care 10/29/2024 10:26 AM EDT - 10/29/2024 11:59 PM EDT Hospital Encounter [place] [address] Bj Gramajo MD Prostate cancer (HCC) (Primary Dx) Discharge Disposition: Home or Self Care 10/28/2024 Telephone CLINICAL OUTCOMES [facility] [place] [address] Wendy Proctor, RN Follow-up 10/25/2024 9:07 AM EDT - 10/27/2024 1:47 PM EDT Hospital [place] [address] Mart Rice MD Sugimoto, Christopher Deleon MD Elevated troponin (Primary Dx); Non-STEMI (non-ST elevated myocardial infarction) (HCC); Facial laceration, initial encounter; Syncope and collapse; Nonspecific ST-T wave electrocardiographic changes; Chest pain, unspecified type; Hyperlipidemia LDL goal <70; Chronic obstructive pulmonary disease, unspecified COPD type (HCC); Acute systolic heart failure (HCC); NSTEMI (non-ST elevated myocardial infarction) (HCC) Discharge Disposition: Home or Self Care 10/25/2024 4:53 PM EDT - 10/25/2024 5:53 PM EDT Surgery [facility] SOURCING INTERN [facility] [address] [place] [phone] Gary Duke MD LEFT HEART CATHETERIZATION 10/25/2024 Travel 10/12/2024 Telephone [facility] [place] [address] Bj Gramajo MD Patient Question (Asking for next appt location) 09/01/2024 11:53 AM EST - 09/01/2024 11:59 PM EST Hospital Encounter [facility] [address] [facility] [place] [address] Cesar Hernandez PA-C Pain and swelling of left lower extremity Discharge Disposition: Home or Self Care 08/27/2024 10:15 AM EST Ancillary Procedure [facility] [address] [place] [address] Cesar Hernandez PA-C H/O total hip arthroplasty, left 08/27/2024 10:45 AM EST Office Visit [facility] [address] [address] Cesar Hernandez PA-C H/O total hip arthroplasty, left (Primary Dx); Greater trochanteric bursitis of left hip; Pain and swelling of left lower extremity 05/21/2024 10:45 AM EDT Ancillary Procedure [facility] [address] [place] [address] Cesar Hernandez PA-C S/P total left hip arthroplasty 05/21/2024 10:30 AM EDT Office Visit [facility] [address] [address] Cesar Hernandez PA-C S/P total left hip arthroplasty (Primary Dx); Greater trochanteric bursitis of left hip 04/21/2024 10:51 AM EDT - 04/21/2024 11:59 PM EDT Hospital Encounter [facility] [place] [phone] Deja Chi APRN Encounter for follow-up examination after radiotherapy for malignant neoplasm (Primary Dx); Personal history of prostate cancer Discharge Disposition: Home or Self Care 04/17/2024 Telephone [facility] [address] [place] [address] Addis Butcher, RN Results 04/14/2024 8:41 AM EDT - 04/14/2024 11:59 PM EDT Hospital Encounter [facility] [address] [place] [address] Prostate cancer (HCC) Discharge Disposition: Home or Self Care 01/08/2024 Telephone [facility] [address] [facility] [address] [place] [address] Bárbara Josue MA Other 12/24/2023 Telephone [place] [address] Wendy Pritchard, Clerical Staff Patient Question 12/09/2023 Telephone [place] [address] Paris Lynn, Clerical Staff 11/25/2023 1:00 PM EDT Office Visit [facility] [address] [place] [address] Kim Scales MD Screening for skin cancer (Primary Dx); Inflamed seborrheic keratosis; Other disturbances of skin sensation; Brachioradial pruritus; SK (seborrheic keratosis); Neoplasm of unspecified behavior of bone, soft tissue, and skin; Multiple benign melanocytic nevi; Lentigines; Photoaging of skin 10/28/2023 Patient Outreach [facility] [address] [place] [phone] Dariana Dickerson, certified nurse Follow Up (Status Post Left THR/) 10/24/2023 9:30 AM EDT [address] [address] Cesar Hernandez PA-C S/P total left hip arthroplasty (Primary Dx) 10/18/2023 Refill [facility] [address] [place], [place] [address] [address] [address] Gaby Han NP Medication Refill 10/17/2023 11:35 AM EDT - 10/17/2023 11:59 PM EDT Hospital Encounter [facility] [place] [phone] Bj Gramajo MD Prostate cancer (HCC) (Primary Dx) Discharge Disposition: Home or Self Care 10/15/2023 1:04 PM EDT - 10/15/2023 11:59 PM EDT Hospital Encounter [facility] [address] [place] [address] Prostate cancer (HCC) Discharge Disposition: Home or Self Care 09/25/2023 [place] [address] Dariana Dickerson, certified nurse Follow Up (Status Post Left THR/) 09/17/2023 [place] [address] Gaby Han, SWITCHBOARD OPERATOR RECEPTIONIST Other 09/13/2023 Telephone [facility] [address] [place] [phone] Debby Rodriguez MA Patient Question 09/13/2023 [place] [address] Agapito Orta MD 09/11/2023 [place] [address] Dariana Dickerson, certified nurse Follow Up (Status Post Left THR/) 09/05/2023 9:00 AM EST [facility] [address] [address] Gaby Han, ELYSSA S/P total left hip arthroplasty (Primary Dx) 09/04/2023 [place] [address] Gaby Han, SWITCHBOARD OPERATOR RECEPTIONIST Other 09/03/2023 Telephone [place] [phone] Agapito Orta MD Other 08/28/2023 [place] [address] Dariana Dickerson, certified nurse Follow Up (Status Post Left THR/) 08/26/2023 [place] [address] Gaby Han, ELYSSA Medication Refill (Refill) 08/19/2023 [place] [address] Gaby Han NP Medication Refill (Refill) 08/16/2023 Orders Only [place] [address] Natty Isaac, JOSHUA Prostate cancer (HCC) (Primary Dx) 08/16/2023 Telephone [place] [address] Natty Isaac RN 08/16/2023 Telephone [place] [address] Paris Lynn, Clerical Staff Reschedule 08/16/2023 Telephone [place] [address] Wendy Pritchard, Clerical Staff Results 08/15/2023 Telephone [place] [address] Natty Isaac, JOSHUA 08/14/2023 Refill [facility] [address] [employer] [address] [place] [address] Gaby Han, SWITCHBOARD OPERATOR RECEPTIONIST Medication Refill 08/14/2023 10:15 AM EST Ancillary Procedure [facility] [address] [employer] [address] [place] [address] Gaby Han, SWITCHBOARD OPERATOR RECEPTIONIST S/P total left hip arthroplasty 08/14/2023 10:00 AM EST Office Visit [facility] [address] [place] [address] Gaby Han, SWITCHBOARD OPERATOR RECEPTIONIST S/P total left hip arthroplasty (Primary Dx) 08/12/2023 Orders Only [facility] [place] [phone] Tere Patterson RN Prostate cancer (HCC) (Primary Dx) 08/12/2023 10:55 AM EST - 08/12/2023 11:59 PM EST Hospital Encounter [facility] [address] [place] [address] Prostate cancer (HCC) Discharge Disposition: Home or Self Care 08/07/2023 [facility] [address] [facility] [address] [phone] Gaby Han NP Medication Refill (Refill) 08/07/2023 Telephone [place] [phone] Agapito Orta MD Post-op Call 08/07/2023 Patient Outreach [place] [phone] Dariana Dickerson, certified nurse Follow Up (Status Post Left THR/) 08/02/2023 Patient Outreach [facility] [address] [phone] Sylvester Longo MA Sign Language Teacher Follow Up (Status Post Left THR ) 08/01/2023 Patient Outreach [place] [phone] Dariana Dickerson, certified nurse Follow Up (Status Post Left THR/) 08/01/2023 Patient Outreach [address] [phone] Dariana Dickerson, certified nurse Follow Up (Status Post Left THR/) 07/31/2023 Travel 07/31/2023 7:30 AM EST - 07/31/2023 9:55 AM EST Surgery [facility]OP [facility] [address] [place] [phone] Agapito Orta MD TOTAL HIP ARTHROPLASTY/REPLACEMENT-A NTERIOR OR REVISION ANTERIOR (THOMPSON/NEPHEW) 07/31/2023 7:30 AM EST Anesthesia Event [facility] [place] [address] Lance Gonsalez, Lanette Chaudhari, DIAL MARKER 07/31/2023 5:11 AM EST - 07/31/2023 12:36 PM EST Hospital Encounter [facility] SAME DAY SURGERY [facility] [place] [address] Agapito Orta MD Discharge Disposition: Home or Self Care 07/11/2023 Travel 07/11/2023 10:11 AM EST - 07/11/2023 11:59 PM EST Hospital Encounter [facility] PRE-ADMIT TESTING [facility] [place] [address] Preop testing (Primary Dx); Anticoagulation adequate Discharge Disposition: Home or Self Care 07/01/2023 Patient Outreach [address] [address] Dariana Dickerson, certified nurse Follow Up (Pre Risk Assessment left THR/) 06/18/2023 Orders Only [facility] [address] [place] [address] Agapito Orta MD Post-traumatic osteoarthritis of left hip (Primary Dx) 06/18/2023 10:30 AM EST Office Visit [facility] [address] [place] [address] Agapito Orta MD Post-traumatic osteoarthritis of left hip (Primary Dx) 06/13/2023 11:15 AM EST Office Visit [facility] [address] [place] [phone] Dhiraj Wallace MD Primary hypertension (Primary Dx); Pure hypercholesterolemia; Shortness of breath; Encounter for preoperative anesthesiology assessment for cardiac surgery 06/11/2023 9:18 AM EST - 06/11/2023 11:59 PM EST Hospital Encounter [facility] [address] [place] [address] Shortness of breath; Acute on chronic diastolic heart failure (HCC); Primary hypertension; Pure hypercholesterolemia; Prostate cancer (HCC); Left hip pain Discharge Disposition: Home or Self Care 06/11/2023 9:16 AM EST - 06/11/2023 9:17 AM EST [facility] En[facility] [address] [place] [address] Cesar Hernandez PA-C Left hip pain Discharge Disposition: Home or Self Care 05/30/2023 Telephone [facility] [address] [place] [address] Agapito Orta MD Other 05/29/2023 2:35 PM EDT Ancillary Procedure [facility] [address] [place] [address] Cesar Hernandez PA-C Left hip pain 05/29/2023 3:00 PM EDT Office Visit [address] [address] Cesar Hernandez PA-C Left hip pain (Primary Dx) 05/13/2023 Refill [facility] [address] [place] [address] Dhiraj Wallace MD Medication Refill 04/22/2023 Telephone [facility] [address] [place] [phone] Cesar Aguayo MD Other 04/16/2023 Telephone [facility] [address] [place] [address] [place] [phone] Ashli Alfaro, ASH Results 04/12/2023 11:04 AM EDT - 04/12/2023 11:59 PM EDT Hospital Encounter [facility] [address] [place] [address] Cesar Aguayo MD Bilateral lower extremity edema; Acquired lymphedema Discharge Disposition: Home or Self Care 03/28/2023 9:20 AM EDT Office Visit [facility] [address] [place] [phone] Cesar Aguayo MD Bilateral lower extremity edema (Primary Dx); Acquired lymphedema; Prostate cancer (HCC) 03/15/2023 Refill [facility] [address] [place] [phone] Dhiraj Wallace MD Medication Refill 02/25/2023 12:30 PM EDT Office Visit [facility] [address] [place] [address] Baljinder Caceres MD Acquired lymphedema (Primary Dx); SINGLETON (dyspnea on exertion); SOB (shortness of breath); Prostate cancer (HCC); Persistent cough for 3 weeks or longer 02/04/2023 Telephone [facility] [place] [phone] Bj Gramajo MD Results (PSA result from 01/30) 02/04/2023 8:18 AM EDT - 02/04/2023 11:59 PM EDT Hospital Encounter [facility] [address] [place] [address] Baljinder Caceres MD Prostate cancer (HCC); SINGLETON (dyspnea on exertion); SOB (shortness of breath); Persistent cough for 3 weeks or longer Discharge Disposition: Home or Self Care 01/30/2023 Orders Only [facility] [address] [place] [address] Wendy Chao Prostate cancer (HCC) 01/30/2023 Travel 01/30/2023 8:05 AM EDT - 01/30/2023 11:59 PM EDT Hospital Encounter [facility] [address] [place] [address] Discharge Disposition: Home or Self Care 01/24/2023 Refill [facility] [address] [place] [address] Dhiraj Wallace MD Medication Refill 01/24/2023 10:30 AM EDT Office Visit [facility] [address] [place] [phone] Yaquelin Waldrop APRN Shortness of breath (Primary Dx); Acute on chronic diastolic heart failure (HCC); Primary hypertension; Pure hypercholesterolemia; Heart murmur 01/10/2023 Refill [facility] [address] [place] [phone] Dhiraj Wallace MD Medication Refill 12/28/2022 12:04 PM EDT - 12/28/2022 11:59 PM EDT Hospital Encounter [facility] [address] [place] [address] Baljinder Caceres MD Prostate cancer (HCC); SINGLETON (dyspnea on exertion); SOB (shortness of breath); Persistent cough for 3 weeks or longer Discharge Disposition: Home or Self Care 12/26/2022 Patient Outreach [facility] [address] Nadine Garcia, electrical and radio aircraft mechanic Nurse Navigation (Follow up/Exit interview) 12/21/2022 Travel 12/21/2022 8:58 AM EDT - 12/21/2022 11:59 PM EDT Hospital Encounter [facility] [address] [facility] [address] [place] [address] Bj Gramajo MD Holtzapfel, Catherine Ann, APRN Prostate cancer (HCC) (Primary Dx) Discharge Disposition: Home or Self Care 12/17/2022 12:00 PM EDT Office Visit [facility] [address] [place] [address] Baljinder Caceres MD SOB (shortness of breath) (Primary Dx); Prostate cancer (HCC); SINGLETON (dyspnea on exertion); Persistent cough for 3 weeks or longer 12/13/2022 Telephone [facility] H[facility]V [address] [address] Dhiraj Wallace MD Patient Question 12/10/2022 Refill [facility] [place] [address] Yulissa Lynn, Clerical Staff Medication Refill 11/29/2022 Patient Outreach [place] [address] Nadine Garcia, electrical and radio aircraft mechanic Nurse Navigation (Tx follow up ) 11/22/2022 Orders Only [facility] [place] [address] [place] [address] Bj Gramajo MD 11/22/2022 Travel 11/22/2022 9:43 AM EDT - 11/22/2022 11:59 PM EDT Hospital Encounter [facility] [address] [place] [address] Bj Gramajo MD Discharge Disposition: Home or Self Care 11/21/2022 Orders Only [facility] [address] [place] [address] Bj Gramajo MD 11/21/2022 Travel 11/21/2022 9:49 AM EDT - 11/21/2022 11:59 PM EDT Hospital Encounter [facility] [address] [place] [address] Bj Gramajo MD Prostate cancer (HCC) (Primary Dx) Discharge Disposition: Home or Self Care 11/20/2022 Orders Only [facility] [place] [address] [place] [address] Bj Gramajo MD 11/20/2022 Travel 11/20/2022 9:30 AM EDT - 11/20/2022 11:59 PM EDT Hospital Encounter [facility] [address] [place] [address] Bj Gramajo MD Discharge Disposition: Home or Self Care 11/19/2022 Orders Only [facility] [address] [place] [address] Bj Gramajo MD 11/19/2022 Travel 11/19/2022 9:49 AM EDT - 11/19/2022 11:59 PM EDT Hospital Encounter [facility] [address] [place] [address] Bj Gramajo MD Discharge Disposition: Home or Self Care 11/16/2022 Orders Only [facility] [place] [address] [place] [address] Bj Gramajo MD 11/16/2022 Travel 11/16/2022 Refill [facility] [address] [place] [address] Bj Gramajo MD Medication Refill 11/16/2022 9:32 AM EDT - 11/16/2022 11:59 PM EDT Hospital Encounter [facility] [address] [place] [address] Bj Gramajo MD Discharge Disposition: Home or Self Care 11/15/2022 Orders Only [facility] [place] [address] [place] [address] Bj Gramajo MD 11/15/2022 Travel 11/15/2022 9:48 AM EDT - 11/15/2022 11:59 PM EDT Hospital Encounter [facility] [address] [facility] [place] [address] Bj Gramajo MD Discharge Disposition: Home or Self Care 11/14/2022 Orders Only [facility] [address] [place] [facility] Bj Gramajo MD 11/14/2022 Travel 11/14/2022 9:40 AM EDT - 11/14/2022 11:59 PM EDT Hospital Encounter [facility] [address] [place] [address] Bj Gramajo MD Prostate cancer (HCC) (Primary Dx) Discharge Disposition: Home or Self Care 11/13/2022 Orders Only [facility] [address] [place] [address] Bj Gramajo MD 11/13/2022 9:22 AM EDT - 11/13/2022 11:59 PM EDT Hospital Encounter [facility] [address] [place] [address] Bj Gramajo MD Discharge Disposition: Home or Self Care 11/12/2022 Orders Only [facility] [address] [place] [address] Bj Gramajo MD 11/12/2022 Travel 11/12/2022 9:17 AM EDT - 11/12/2022 11:59 PM EDT Hospital Encounter [facility] [address] [place] [address] Bj Gramajo MD Discharge Disposition: Home or Self Care 11/09/2022 Refill [facility] [address] [place] [phone] Dhiraj Wallace MD Medication Refill 11/09/2022 Orders Only [facility] [address] [place] [address] Bj Grmaajo MD 11/09/2022 9:12 AM EDT - 11/09/2022 11:59 PM EDT Hospital Encounter [facility] [address] [place] [address] Bj Gramajo MD Discharge Disposition: Home or Self Care 11/08/2022 Travel 11/08/2022 9:29 AM EDT - 11/08/2022 11:59 PM EDT Hospital Encounter [facility] [address] [place] [address] Bj Gramajo MD Discharge Disposition: Home or Self Care 11/07/2022 Orders Only [facility] [address] [place] [address] Bj Gramajo MD 11/07/2022 Travel 11/07/2022 9:33 AM EDT - 11/07/2022 11:59 PM EDT Hospital Encounter [facility] [address] [place] [address] Bj Gramajo MD Prostate cancer (HCC) (Primary Dx); Urethritis Discharge Disposition: Home or Self Care 11/06/2022 Orders Only [facility] [address] [place] [address] Bj Gramajo MD 11/06/2022 9:38 AM EDT - 11/06/2022 11:59 PM EDT Hospital Encounter [facility] [address] [place] [address] Bj Gramajo MD Discharge Disposition: Home or Self Care 11/05/2022 Orders Only [facility] [address] [place] [address] Bj Gramajo MD 11/05/2022 Travel 11/05/2022 9:45 AM EDT - 11/05/2022 11:59 PM EDT Hospital Encounter [facility] [address] [place] [address] Bj Gramajo MD Discharge Disposition: Home or Self Care 11/02/2022 Orders Only [facility] [address] [place] [address] Bj Gramajo MD 11/02/2022 Travel 11/02/2022 9:41 AM EDT - 11/02/2022 11:59 PM EDT Hospital Encounter [facility] [address] [place] [address] Bj Gramajo MD Discharge Disposition: Home or Self Care 11/01/2022 Orders Only [facility] [address] [place] [address] Bj Gramajo MD 11/01/2022 9:39 AM EDT - 11/01/2022 11:59 PM EDT Hospital Encounter [facility] [address] [place] [address] Bj Gramajo MD Discharge Disposition: Home or Self Care 10/31/2022 Orders Only [facility] [address] [place] [address] Bj Gramajo MD 10/31/2022 Travel 10/31/2022 9:56 AM EDT - 10/31/2022 11:59 PM EDT Hospital Encounter [facility] [address] [place] [address] Bj Gramajo MD Discharge Disposition: Home or Self Care 10/30/2022 Orders Only [facility] [address] [place] [address] Bj Gramajo MD 10/30/2022 9:42 AM EDT - 10/30/2022 11:59 PM EDT Hospital Encounter [facility] [address] [place] [address] Claire Bell MD Prostate cancer (HCC) (Primary Dx) Discharge Disposition: Home or Self Care 10/29/2022 Orders Only [facility] [address] [facility] [place] [phone] Bj Gramajo MD 10/29/2022 Travel 10/29/2022 9:47 AM EDT - 10/29/2022 11:59 PM EDT Hospital Encounter [facility] [address] [place] [address] Discharge Disposition: Home or Self Care 10/26/2022 Orders Only [facility] [address] [place] [phone] Bj Gramajo MD 10/26/2022 9:36 AM EDT - 10/26/2022 11:59 PM EDT Hospital Encounter [facility] [address] [place] [address] Discharge Disposition: Home or Self Care 10/25/2022 Orders Only [facility] [address] [place] [address] Bj Gramajo MD 10/25/2022 Travel 10/25/2022 10:29 AM EDT - 10/25/2022 11:59 PM EDT Hospital Encounter [facility] [address] [place] [id number] Discharge Disposition: Home or Self Care 10/24/2022 Orders Only [facility] [address] [place] [address] Bj Gramajo MD 10/24/2022 Travel 10/24/2022 9:46 AM EDT - 10/24/2022 11:59 PM EDT Hospital Encounter [facility] [address] [place] [address] Bj Gramajo MD Prostate cancer (HCC) (Primary Dx) Discharge Disposition: Home or Self Care 10/23/2022 Orders Only [facility] [address] [place] [address] Bj Gramajo MD 10/23/2022 10:24 AM EDT - 10/23/2022 11:59 PM EDT Hospital Encounter [facility] [address] [place] [address] Bj Gramajo MD Discharge Disposition: Home or Self Care 10/22/2022 Orders Only [facility] [address] [place] [address] Bj Gramajo MD 10/22/2022 Travel 10/22/2022 Refill [facility] [address] [place] [address] Dhiraj Wallace MD Medication Refill 10/22/2022 11:10 AM EDT - 10/22/2022 11:59 PM EDT Hospital Encounter [facility] [address] [place] [address] Bj Gramajo MD Discharge Disposition: Home or Self Care 10/19/2022 Orders Only [facility] [address] [place] [address] Bj Gramajo MD 10/19/2022 Travel 10/19/2022 11:03 AM EDT - 10/19/2022 11:59 PM EDT Hospital Encounter [facility] [address] [place] [address] Bj Gramajo MD Discharge Disposition: Home or Self Care 10/18/2022 Orders Only [facility] [address] [place] [address] Bj Gramajo MD 10/18/2022 Travel 10/18/2022 11:15 AM EDT - 10/18/2022 11:59 PM EDT Hospital Encounter [facility] [address] [place] [address] Bj Gramajo MD Discharge Disposition: Home or Self Care 10/17/2022 Orders Only [facility] [address] [place] [address] Bj Gramajo MD 10/17/2022 11:31 AM EDT - 10/17/2022 11:59 PM EDT Hospital Encounter [facility] [address] [place] [address] Bj Gramajo MD Prostate cancer (HCC) (Primary Dx) Discharge Disposition: Home or Self Care 10/17/2022 Travel 10/17/2022 7:30 AM EDT - 10/17/2022 11:30 AM EDT Hospital Encounter [facility] [address] [place] [address] Bj Gramajo MD Discharge Disposition: Home or Self Care 10/12/2022 Patient Outreach [facility] [place] [address] Nadine Garcia, electrical and radio aircraft mechanic Nurse Navigation (Follow up ) 10/10/2022 10:11 AM EDT - 10/10/2022 11:59 PM EDT Hospital Encounter [facility] [place] [address] Bj Gramajo MD Discharge Disposition: Home or Self Care 10/10/2022 Travel 10/10/2022 9:51 AM EDT - 10/10/2022 10:10 AM EDT Hospital Encounter [facility] [place] [address] Bj Gramajo MD Castellini, Lauren E, MD Prostate cancer (HCC) (Primary Dx) Discharge Disposition: Home or Self Care 10/04/2022 Patient Outreach [facility] [address] Nadine Garcia, electrical and radio aircraft mechanic Nurse Navigation (Initial assessment ) 10/01/2022 9:00 AM EST - 10/01/2022 9:11 AM EST Hospital Encounter [facility] [place] [address] Bj Gramajo MD Prostate cancer (HCC) (Primary Dx) Discharge Disposition: Home or Self Care 09/28/2022 Patient Outreach [place] [place] [address] Nadine Garcia, electrical and radio aircraft mechanic Nurse Navigation (Intro/initial assessment attempt #1) 09/26/2022 Travel 09/26/2022 12:01 PM EST - 09/26/2022 11:59 PM EST Hospital Encounter [facility] [address] [place] [address] Bj Gramajo MD Prostate cancer (HCC) (Primary Dx) Discharge Disposition: Home or Self Care 09/24/2022 Patient Outreach [facility] [place] [id number] Nadine Garcia, electrical and radio aircraft mechanic Nurse Navigation (Intake) 09/20/2022 8:30 AM EST Office Visit [facility] [address] [place] [phone] Zurdo Corley MD Lower urinary tract symptoms (LUTS) (Primary Dx) 09/11/2022 Telephone [facility] [address] [place] [address] Zurdo Corley MD Schedule Appointment 09/10/2022 Travel 09/10/2022 1:00 PM EST - 09/10/2022 1:30 PM EST Surgery [facility] [address] [place] [address] Zurdo Corley MD PROSTATE BIOPSY URONAV / MRI FUSION (TRANSPERINEAL / TRANSRECTAL) 09/10/2022 12:47 PM EST Anesthesia Event [facility] [address] [place] [address] Gabriel Jefferson MD Zehnder, Wende, ANGEL 09/10/2022 11:24 AM EST - 09/10/2022 1:54 PM EST Hospital Encounter [facility] SAME DAY SURGERY [address] [place] [address] Zurdo Corley MD Elevated PSA; Elevated PSA Discharge Disposition: Home or Self Care 09/04/2022 Travel 08/27/2022 Telephone [facility] [address] [place] [address] Dhiraj Wallace MD Medication Question (Please call Pat (pt's sister)) 08/25/2022 Refill [facility] [address] [place] [address] Dhiraj Wallace MD Medication Refill 08/16/2022 Telephone [facility] [place] [address] [phone] Savannah Kidd MA Other 08/15/2022 Orders Only [facility] [address] [place] [phone] Zurdo Corley MD Elevated PSA (Primary Dx) 08/13/2022 Telephone [facility] [address] [place] [phone] Zurdo Corley MD Patient Question 08/10/2022 Treatment [facility] [place] [address] Zurdo Corley MD 08/10/2022 Travel 08/10/2022 2:34 PM EST - 08/10/2022 11:59 PM EST Hospital Encounter [facility] [place] [address] Zurdo Corley MD Elevated PSA Discharge Disposition: Home or Self Care 07/09/2022 10:00 AM EST Office Visit [facility] [address] [place] [phone] Zurdo Corley MD Elevated PSA (Primary Dx) 07/06/2022 Orders Only [facility] [address] [place] [phone] Zurdo Corley MD Elevated PSA (Primary Dx) 07/06/2022 Orders Only [facility] [address] [place] [phone] Zurdo Corley MD Elevated PSA (Primary Dx) 07/06/2022 Telephone [facility] [address] [place] [phone] Zurdo Corley MD Patient Question 07/06/2022 Travel 07/06/2022 10:40 AM EST - 07/06/2022 11:59 PM EST Hospital Encounter [facility] [address] [place] [address] Elevated PSA Discharge Disposition: Home or Self Care 05/31/2022 Telephone [facility] [address] [address] Dhiraj Wallace MD Medication Question 05/31/2022 Telephone [facility] [place] [address] [facility] [address] [place] [address] Dhiraj Wallace MD Orders (Pre Acess called the pts sister Cherise states he is to have some test no orders in [facility] call the sister to advise at [phone]) 05/31/2022 Orders Only [facility] [address] [place] [address] Dhiraj Wallace MD Angina pectoris syndrome (Primary Dx); Shortness of breath 05/31/2022 Orders Only [facility] [address] [place] [address] Dhiraj Wallace MD Angina pectoris syndrome (Primary Dx); Shortness of breath 05/30/2022 Travel 05/30/2022 2:00 PM EDT - 05/30/2022 3:00 PM EDT Surgery [facility] [place] [address] Dhiraj Wallace MD RIGHT AND LEFT HEART CATHETERIZATION 05/30/2022 11:55 AM EDT - 05/30/2022 6:45 PM EDT Hospital Encounter [facility] CARD CATH REC [facility] [place] [address] Dhiraj Wallace MD Shortness of breath; Angina pectoris syndrome; SOB (shortness of breath) Discharge Disposition: Home or Self Care 05/25/2022 Telephone [facility] [address] [address] Dhiraj Wallace MD Other (fax number/) 05/24/2022 Travel 05/24/2022 11:59 AM EDT - 05/24/2022 11:59 PM EDT Hospital Encounter [facility] [address] [place] [address] Discharge Disposition: Home or Self Care 05/24/2022 11:00 AM EDT Office Visit [facility] [address] [place] [phone] Dhiraj Wallace MD Primary hypertension (Primary Dx); SOB (shortness of breath); Aortic valve cusp abnormality; Precordial pain 05/11/2022 Telephone [facility] [address] [address] Dhiraj Wallace MD Results 05/04/2022 Travel 05/04/2022 8:37 AM EDT - 05/04/2022 11:59 PM EDT Hospital Encounter [facility] [address] [facility] [place] [address] Dhiraj Wallace MD SOB (shortness of breath); Heart murmur; Edema, unspecified type Discharge Disposition: Home or Self Care 04/26/2022 Telephone [facility] [address] [address] Dhiraj Wallace MD Results 04/24/2022 Travel 04/24/2022 2:10 PM EDT - 04/24/2022 11:59 PM EDT Hospital Encounter [facility] [address] [place] [address] Dhiraj Wallace MD Mass, chest Discharge Disposition: Home or Self Care 04/12/2022 Telephone [facility] [address] [address] Dhiraj Wallace MD Results 04/12/2022 Travel 04/12/2022 11:39 AM EDT - 04/12/2022 11:59 PM EDT Hospital Encounter [facility] X[facility] [address] [place] [address] SOB (shortness of breath); Heart murmur; Edema, unspecified type Discharge Disposition: Home or Self Care 04/12/2022 11:15 AM EDT Office Visit [facility] [address] [place] [phone] Dhiraj Wallace MD SOB (shortness of breath) (Primary Dx); Dizziness; Fatigue, unspecified type; Heart murmur; Edema, unspecified type 01/22/2022 Orders Only [facility] [phone] Zurdo Corley MD Elevated PSA (Primary Dx) 01/17/2022 12:55 PM EDT - 01/17/2022 11:59 PM EDT Hospital Encounter [facility] [address] [place] [phone] Lower urinary tract symptoms (LUTS); Elevated PSA Discharge Disposition: Home or Self Care 01/17/2022 10:30 AM EDT Office Visit [facility] Urology NPTFTT [address] [place] [phone] Zurdo Corley MD Lower urinary tract symptoms (LUTS) (Primary Dx); Elevated PSA 07/12/2021 Travel 07/12/2021 9:45 AM EST - 07/12/2021 10:00 AM EST Surgery [facility] [address] [place] [address] Magdiel Alvarado MD CATARACT EXTRACTION WITH PHACOEMULSIFICATION AND INTRAOCULAR LENS 07/12/2021 9:48 AM EST Anesthesia Event [facility] [address] [place] [address] Ezekiel Locke MD 07/12/2021 8:34 AM EST - 07/12/2021 10:35 AM EST Hospital Encounter [facility] [address] [place] [address] Magdiel Alvarado MD Discharge Disposition: Home or Self Care 07/08/2021 10:32 AM EST - 07/08/2021 11:59 PM EST Hospital Encounter [facility] [address] [place] [address] Covid19, [facility] Pre-op testing; Encounter for laboratory testing for COVID-19 virus Discharge Disposition: Home or Self Care 06/26/2021 8:30 AM EST - 06/26/2021 8:45 AM EST Surgery [facility] [address] [place] [address] Magdiel Alvarado MD CATARACT EXTRACTION WITH PHACOEMULSIFICATION AND INTRAOCULAR LENS 06/26/2021 8:19 AM EST Anesthesia Event [facility] [place] [address] Andres Mena MD Sayre, Lauren H, MD 06/26/2021 7:16 AM EST - 06/26/2021 9:06 AM EST Hospital Encounter [facility] [address] [place] [address] Magdiel Alvarado MD Discharge Disposition: Home or Self Care 06/23/2021 10:38 AM EST - 06/23/2021 11:59 PM EST Hospital Encounter [facility] [address] [place] [address] Covid19, [facility] Pre-op testing; Encounter for laboratory testing for COVID-19 virus Discharge Disposition: Home or Self Care 06/15/2021 Travel 01/14/2018 9:24 AM EDT - 01/14/2018 11:59 PM EDT Hospital Encounter [facility] [address] [place] [address] Tramaine Espinosa MD Leg edema Discharge Disposition: Home or Self Care 08/01/2017 9:27 AM EST - 08/01/2017 11:59 PM EST Hospital Encounter [facility] [address] [place] [place] [address] Discharge Disposition: Home or Self Care 01/27/2016 10:45 AM EDT - 01/27/2016 11:59 PM EDT Hospital Encounter [facility] [address] [place] [address] Hyperlipemia (Primary Dx); Chronic fatigue syndrome; Straining on urination Discharge Disposition: Home or Self Care 11/16/2015 Orders Only [facility] [address] [facility] [address] [place] [address] Mason Ballard MD 11/02/2015 Telephone [facility] [address] [facility] [address] [place] [address] Mason Ballard MD Medication Management (colyte ) 11/01/2015 Telephone [facility] [address] [facility] [address] [facility] [address] Mason Ballard MD Colonoscopy 03/16/2015 12:30 PM EDT - 03/16/2015 11:59 PM EDT Hospital Encounter [facility] [address] [facility] Lyn Joel MD Dyspnea Discharge Disposition: Home or Self Care 03/16/2015 12:29 PM EDT Hospital Encounter [facility] [place] [address] Lyn Joel MD Dyspnea Discharge Disposition: Home or Self Care 03/16/2015 12:29 PM EDT Hospital Encounter [facility] [address] [facility]17 Lyn Joel MD Dyspnea Discharge Disposition: Home or Self Care 05/19/2014 8:57 PM EDT - 05/19/2014 11:51 PM EDT Emergency [facility] [address] [place] [address] Mario Ramos MD Bronchitis (Primary Dx); Wheezing Discharge Disposition: Home or Self Care 01/20/2013 7:14 AM EDT - 01/20/2013 7:29 AM EDT Hospital Encounter [facility] D[facility]WING X[facility] [place] [address] Lyn Joel MD Asbestosis (HCC) Discharge Disposition: Home or Self Care 01/20/2013 7:30 AM EDT - 01/20/2013 11:59 PM EDT Hospital Encounter [facility] [address] Lyn Joel MD Edema; Asbestosis (HCC) Discharge Disposition: Home or Self Care 03/20/2010 8:51 PM EDT - 03/20/2010 11:59 PM EDT Hospital Encounter [facility] Lyn Joel MD 12/21/2007 11:42 AM EDT - 12/25/2007 12:28 PM EDT Hospital Encounter [facility] Manasa Hickman MD 06/28/2005 9:45 AM EST - 06/28/2005 11:59 PM EST Hospital Encounter [facility] RADIOLOGY [facility] Gerry Hay MD 04/19/2005 Hospital Encounter [facility] MEDICINE [facility] Generic, Historical Provider 03/26/2005 8:50 AM EDT - 03/28/2005 2:10 PM EDT Hospital Encounter [facility] ETCU [facility] Generic, Historical Provider 04/12/2000 Hospital Encounter [facility] UNKNFTT Generic, Historical Provider Allergies Active Allergy Reactions Criticality Noted Date Comments Aspirin Other (See Comments) Low 05/19/2014 makes my stomach bleed per patient Medications LORazepam (ATIVAN) 1 mg Oral Tablet Take 1 mg by mouth every 12 hours as needed. Active HYDROcodone-acet aminophen (NORCO) 10-325 mg Oral TabletIndication s:pain Take 1 Tablet by mouth every 6 hours as needed for Chronic Pain (G89.29). Chronic back and hip pain Indications: pain Active rOPINIRole (REQUIP) 1 mg Oral TabletIndication s:restless leg syndrome Take 1 mg by mouth 2 times daily as needed for Other (takes at HS). Indications: restless legs syndrome, an extreme discomfort in the calf muscles when sitting or lying down Active fluticasone propionate (FLONASE) 50 mcg/actuation Nasl [place], Suspension daily as needed. 2 Active tamsulosin (FLOMAX) 0.4 mg Oral CapsuleIndicatio ns:Prostate cancer (HCC) Take 1 Capsule by mouth daily. 90 Capsule 3 3 Active Additional Information Patient not taking.Reported on 02/03/2025 torsemide (DEMADEX) 20 mg Oral TabletIndication s:Shortness of breath,Acute on chronic diastolic heart failure (HCC) Take 1 Tablet by mouth daily. 30 Tablet 11 3 Active aspirin 81 mg Oral Tablet, Chewable Take 1 Tablet by mouth daily. 30 Tablet 4 Active nalOXone (NARCAN) 4 mg/actuation Nasl [place], Non-Aerosol 0.1 mL by Nasal route as needed for Opioid Reversal. 1 Each 4 Active Additional Information Patient not taking.Reported on 02/03/2025 docusate sodium (COLACE) 100 mg Oral CapsuleIndicatio ns:S/P total left hip arthroplasty TAKE 1 CAPSULE BY MOUTH TWICE A DAY NEEDED FOR CONSTIPATION 30 Capsule 4 Active metoprolol succinate ER (TOPROL-XL) 100 mg Oral Tablet Sustained Release 24 hr Take 100 mg by mouth daily. 5 Active testosterone cypionate (DEPOTESTOTERONE CYPIONATE) 200 mg/mL IM Oil Inject 200 mg into the muscle every 14 days. 5 Active clopidogreL (PLAVIX) 75 mg Oral Tablet Take 1 Tablet by mouth daily. 90 Tablet 3 10/27/2024 1:10 PM EDT 5 Active atorvastatin (LIPITOR) 40 mg Oral Tablet Take 1 Tablet by mouth nightly. 90 Tablet 3 10/27/2024 1:10 PM EDT 5 Active losartan (COZAAR) 25 mg Oral Tablet Take 1 Tablet by mouth daily. 30 Tablet 11 10/27/2024 1:10 PM EDT 5 Active pantoprazole (PROTONIX) 40 mg Oral Tablet, Delayed Release (E.C.) Take 1 Tablet by mouth 2 times daily. 180 Tablet 3 10/27/2024 1:10 PM EDT 5 Active Additional Information Patient not taking.Reported on 02/03/2025 spironolactone (ALDACTONE) 25 mg Oral Tablet Take one-half tablet (12.5 mg) by mouth daily. 15 Tablet 11 10/27/2024 1:10 PM EDT 5 Active diclofenac (VOLTAREN) 75 mg Oral Tablet, Delayed Release (E.C.) Take 1 Tablet by mouth every morning. 100 mg. TALK with Your MD for alternative if any. 5 Active Additional Information Patient not taking.Reported on 02/03/2025 Active Problems Problem Noted Date Diagnosed Date Acute systolic heart failure 10/26/2024 Elevated troponin 10/25/2024 Syncope 10/25/2024 VHD (valvular heart disease) 10/25/2024 Pulmonary HTN 10/25/2024 Restless leg syndrome 10/25/2024 Chest pain 10/25/2024 Post-traumatic osteoarthritis of left hip 2022 Prostate cancer 08/16/2022 Cancer Staging:Clinical stage from 09/26/2022:Stage IIB(cT1c, cN0, cM0, PSA: 6.7, Grade Group: 2) - Signed by Bj Gramajo MD on 09/26/2022 Overview (08/16/2022): Added automatically from request for surgery [id number] Family History Medical History Relation Name Comments COPD Father Emphysema Father Heart Disease Father heart attack Heart Failure Father High Blood Pressure Father High Cholesterol Father Stroke Father COPD Mother Heart Disease Mother High Blood Pressure Mother High Cholesterol Mother Anesth Problems Neg Hx Relation Name Status Comments Father Mother Social History Smoking Status as of 04/19/2025 Tobacco Use Types Packs/Day Years Used Date Smoking Tobacco: Never Assessed [facility] Utilities Answer Date Recorded In the past 12 months has th e [employer], gas, oil, or water [employer] threatened to shut off services in your home? No 10/26/2024 Overall Financial Resource Strain (CARDIA) Answe r Date Recorded How hard is it for you to pa y for the very basics like food, housing, medical care, and heating? Not hard at all 10/26/2024 PHQ-2 Answer Date Recorded PHQ-2 Total Score 0 10/26/2024 [facility] [place] of Occupat ional Health - Occupational Stress [...] money to get more. Never true 10/26/2024 [facility] IP Transportation Answer D ate Recorded In the past 12 months, has l ack of reliable transportation kept you from medical appointments, meetings, work or from getting things needed for daily living? No 10/26/2024 Sex and Gender Information Value Date Recorded Sex Assigned at Not on file Legal Sex Male 10:22 AM EDT Gender Identity Not on file Sexual Orientation Not on file Last Filed Vital Signs Vital Sign Reading Time Taken Comments Blood Pressure 125/73 02/03/2025 8:52 AM EDT Pulse 67 02/03/2025 8:52 AM EDT Temperature 36.9 C (98.4 F) 02/03/2025 8:52 AM EDT Respiratory Rate 18 02/03/2025 8:52 AM EDT Oxygen Saturation 100% 02/03/2025 8:52 AM EDT Inhaled Oxygen Concentration - - Weight 67.6 kg (149 lb) 02/03/2025 8:52 AM EDT Height 167.6 cm (5' 6 ) 10/29/2024 11:08 AM EDT Body Mass Index 24.05 10/29/2024 11:08 AM EDT Plan of Treatment Upcoming Encounters Date Type Department Care Team (Late st Contact Info) Description 05/10/2025 9:45 AM EDT Appointment [facility] [address] [facility] [address] [place] [address] Paris Fontaine, SWITCHBOARD OPERATOR RECEPTIONIST [address] [place] [address] 07/15/2025 10:45 AM EST Office Visit [facility] [address] [place] [address] Dhiraj Wallace MD [address] [place] [address] Medical Devices Implanted Type Area Software Testing Specialist Device Identifier Shelf Expiration Date Model / Serial / Lot Lens +21d 6x13mm Arcysof Iq Ultrasert Au00t0 Pc 1-Pc Basell - [id number] Implanted:Qty : 1 on 06/26/2021 by Magdiel Alvarado MD at [facility] Left: Eye [facility]:SURG [id number] 02/05/2024 AU00T0.210 / [id number] / Lens +21d 6x13mm Arcysof Iq Ultrasert Au00t0 Pc 1-Pc Basell - [id number] Implanted:Qty : 1 on 07/12/2021 by Magdiel Alvarado MD at [facility] Right: Eye [facility]:SURG [id number] 02/21/2024 AU00T0.210 / [id number] / Cup Actb R3 52mm Std 3hl Pe Hip - [id number] Implanted:Qty : 1 on 07/31/2023 by Agapito Orta MD at [facility] Left: Hip [employer]:ORTHO [id number] 02/13/2033 [id number] / / [id number] Liner Actb [id number] R3 0d Xlpe - [id number] Implanted:Qty : 1 on 07/31/2023 by Agapito Orta MD at [facility] Left: Hip [employer]:ORTHO [id number] 04/02/2033 [id number] / / [id number] Polarstem Collar Std. Ti/Dejesus 5 - [id number] Implanted:Qty : 1 on 07/31/2023 by Agapito Orta MD at [facility] Left: Hip [employer]:ORTHO [id number] 02/05/2030 [id number] / / [id number] Head Fem 36mm +8mm Nk Oxnm 07/11 Tapr Rev Mod - [id number] Implanted:Qty : 1 on 07/31/2023 by Agapito Orta MD at [facility] Left: Hip [employer]:ORTHO [id number] 12/24/2031 [id number] / / [id number] Stent [id number] [place] 3.90x13kz - [id number] Implanted:Qty : 1 on 10/25/2024 by Gary Duke MD at [facility] N/A: [employer] [id number] 07/13/2027 [id number] / / [id number] Procedures Procedure Name Priority Date/Time Associated Diagnosis Comments CBC Routine 02/23/2025 11:04 AM EDT Primary hypertension LIPID PANEL REFLEX Routine 02/23/2025 11:04 AM EDT Pure hypercholesterolemia COMPREHENSIVE METABOLIC PANEL Routine 02/23/2025 11:04 AM EDT Primary hypertension TESTOSTERONE LEVEL TOTAL Routine 02/02/2025 10:26 AM EDT Prostate cancer (HCC) PROSTATE SPECIFIC ANTIGEN (TUMOR MARKER) Routine 02/02/2025 10:26 AM EDT Prostate cancer (HCC) PROSTATE SPECIFIC ANTIGEN (TUMOR MARKER) Routine 10/29/2024 10:25 AM EDT Encounter for follow-up examination after radiotherapy for malignant neoplasm Personal history of prostate cancer IP CONSULT TO WOUND CARE Routine 10/27/2024 8:53 AM EDT ECG AND WAVEFORMS - TELEMETRY Routine 10/27/2024 7:15 AM EDT BASIC METABOLIC PANEL Early AM 10/27/2024 5:26 AM EDT ECG AND WAVEFORMS - TELEMETRY Routine 10/26/2024 7:23 PM EDT SCANNED EKG 10/26/2024 1:25 PM EDT IP CONSULT TO NUTRITION Routine 10/27/19 9:12 AM EDT IP CONSULT TO CASE MANAGEMENT Routine 10/26/2024 9:12 AM EDT ECG AND WAVEFORMS - TELEMETRY Routine 10/26/2024 7:10 AM EDT CBC Early AM 10/26/2024 5:11 AM EDT HEMOGLOBIN A1C Early AM 10/26/2024 5:11 AM EDT LIPID SCREEN Early AM 10/26/2024 5:11 AM EDT BASIC METABOLIC PANEL Early AM 10/26/2024 5:11 AM EDT ECG AND WAVEFORMS - TELEMETRY Routine 10/25/2024 9:02 PM EDT CARDIAC PROCEDURE Routine 10/25/2024 8:37 PM EDT Chest pain, unspecified type CORONARY PERCUTANEOUS INTERVENTION(PCI) Routine 10/25/2024 8:37 PM EDT Chest pain, unspecified type CARDIAC PROCEDURE Routine 10/25/2024 8:37 PM EDT Chest pain, unspecified type CARDIAC PROCEDURE Routine 10/25/2024 8:37 PM EDT Chest pain, unspecified type EK EKG 12 LEAD STAT 10/25/2024 8:33 PM EDT ACTIVATED CLOTTING TIME LR POC Routine 10/25/2024 8:18 PM EDT ACTIVATED CLOTTING TIME LR POC Routine 10/25/2024 7:54 PM EDT ACTIVATED CLOTTING TIME LR POC Routine 10/25/2024 7:37 PM EDT ACTIVATED CLOTTING TIME LR POC Routine 10/25/2024 7:32 PM EDT SOURCING INTERN HEMODYNAMIC WAVEFORMS Routine 10/25/2024 6:56 PM EDT HEPARIN ANTI-XA, UNF Timed 10/25/2024 6:12 PM EDT ADMIT STAT 10/25/2024 4:36 PM EDT EC ECHOCARDIOGRAM 2D M MODE COMPLETE W CONTRAST Routine 10/25/2024 2:32 PM EDT TROPONIN-T HIGH SENSITIVITY 2HR Timed 10/25/2024 11:24 AM EDT IP CONSULT TO PHARMACY Routine 11:[address] ANGIOGRAM CHEST ABDOMEN PELVIS W CONTRAST STAT 10/25/2024 10:[address] CERVICAL SPINE WO CONTRAST STAT 10/25/2024 10:[address] HEAD WO CONTRAST STAT 10/25/2024 10:21 AM EDT LACTIC ACID STAT 10/25/2024 9:27 AM EDT NT PROBNP STAT 10/25/2024 9:27 AM EDT TROPONIN-T HIGH SENSITIVITY BASELINE W/ REFLEX STAT 10/25/2024 9:27 AM EDT PARTIAL THROMBOPLASTIN TIME STAT 10/25/2024 9:27 AM EDT PT / INR STAT 10/25/2024 9:27 AM EDT HEPATIC FUNCTION PANEL STAT 9:27 AM EDT BASIC METABOLIC PANEL STAT 10/25/2024 9:27 AM EDT CBC WITH DIFF STAT 10/25/2024 9:27 AM EDT EK EKG 12 LEAD STAT 10/25/2024 8:57 AM EDT VA US LOWER EXTREMITY VENOUS LEFT STAT 09/01/2024 12:37 PM EST Pain and swelling of left lower extremity CA ARTHROCENTESIS ASPIR&/INJ MAJOR JT/BURSA W/O US Routine 08/27/2024 10:45 AM EST H/O total hip arthroplasty, left Greater trochanteric bursitis of left hip XR HIP LEFT AP LATERAL W AP PELVIS Routine 08/27/2024 10:31 AM EST H/O total hip arthroplasty, left XR HIP LEFT AP LATERAL W AP PELVIS Routine 05/21/2024 10:52 AM EDT S/P total left hip arthroplasty PROSTATE SPECIFIC ANTIGEN (TUMOR MARKER) Routine 04/14/2024 8:41 AM EDT Prostate cancer (HCC) DERMATOPATHOLOGY TISSUE SEND OUT REQUEST Routine 11/28/2023 1:22 PM EDT Neoplasm of unspecified behavior of bone, soft tissue, and skin URINALYSIS Routine 10/15/2023 1:07 PM EDT Prostate cancer (HCC) PROSTATE SPECIFIC ANTIGEN (TUMOR MARKER) Routine 10/15/2023 1:07 PM EDT Prostate cancer (HCC) XR HIP LEFT AP LATERAL W AP PELVIS Routine 08/14/2023 10:13 AM EST S/P total left hip arthroplasty PROSTATE SPECIFIC ANTIGEN (TUMOR MARKER) Routine 08/12/2023 11:08 AM EST Prostate cancer (HCC) SCANNED RHYTHM STRIPS 08/01/2023 1:41 PM EST FL < 1 HOUR CHARI 07/31/2023 9:43 AM EST XR HIP INTRAOPERATIVE LEFT 2 VIEW CHARI 07/31/2023 9:42 AM EST INTRAOP AIRWAY PLACEMENT Routine 07/31/2023 7:35 AM EST HIP SCREWS/HARDWARE REMOVAL/EXCHANGE 07/31/2023 7:29 AM EST Post-traumatic osteoarthritis of left hip Special Needs Rajwinder Table, Largest C-Arm, ANTERIOR, S & Nsk TOTAL HIP ARTHROPLASTY/REPLACEMEN T-ANTERIOR OR REVISION ANTERIOR (THOMPSON/NEPHEW) 07/31/2023 7:29 AM EST Post-traumatic osteoarthritis of left hip Special Needs Rajwinder Table, Largest C-Arm, ANTERIOR, S & Nsk BB HISTORY CHECK Routine 07/11/2023 11:03 AM EST Preop testing SURGERY DATE Routine 07/11/2023 11:03 AM EST Preop testing ANTIBODY SCREEN IGG Routine 07/11/2023 11:03 AM EST Preop testing ABORH Routine 07/11/2023 11:03 AM EST Preop testing PREADMISSION TYPE AND SCREEN Routine 07/11/2023 11:03 AM EST Preop testing PT / INR Routine 07/11/2023 11:03 AM EST Anticoagulation adequate COMPREHENSIVE METABOLIC PANEL Routine 07/11/2023 11:03 AM EST Preop testing CBC WITH DIFF Routine 07/11/2023 11:03 AM EST Preop testing POCT EKG Routine 06/13/2023 12:33 PM EST Shortness of breath Encounter for preoperative anesthesiology assessment for cardiac surgery CT LOWER EXTREMITY LEFT WO CONTRAST Routine 06/11/2023 10:34 AM EST Left hip pain C-REACTIVE PROTEIN Routine 06/11/2023 9:25 AM EST Left hip pain SEDIMENTATION RATE AUTOMATED Routine 06/11/2023 9:25 AM EST Left hip pain PROSTATE SPECIFIC ANTIGEN (TUMOR MARKER) Routine 06/11/2023 9:25 AM EST Prostate cancer (HCC) LIPID SCREEN Routine 06/11/2023 9:25 AM EST Pure hypercholesterolemia COMPREHENSIVE METABOLIC PANEL Routine 06/11/2023 9:25 AM EST Primary hypertension CBC Routine 06/11/2023 9:25 AM EST Primary hypertension NT PROBNP Routine 06/11/2023 9:25 AM EST Shortness of breath Acute on chronic diastolic heart failure (HCC) XR HIP LEFT 4 VIEW Routine 05/29/2023 2:57 PM EDT Left hip pain VA US LOWER EXTREMITY VENOUS BILATERAL Routine 04/12/2023 11:56 AM EDT Bilateral lower extremity edema Acquired lymphedema EC ECHOCARDIOGRAM COMPLETE W DOPPLER AND COLOR FLOW MAPPING Routine 02/04/2023 9:22 AM EDT Prostate cancer (HCC) SINGLETON (dyspnea on exertion) SOB (shortness of breath) Persistent cough for 3 weeks or longer PROSTATE SPECIFIC ANTIGEN (TUMOR MARKER) Routine 01/30/2023 8:07 AM EDT Prostate cancer (HCC) CT CHEST HIGH RESOLUTION WO CONTRAST Routine 12/28/2022 12:32 PM EDT Prostate cancer (HCC) SINGLETON (dyspnea on exertion) SOB (shortness of breath) Persistent cough for 3 weeks or longer RADIATION TREATMENT SUMMARY Routine 11/22/2022 10:11 AM EDT RADIATION TREATMENT SUMMARY Routine 11/21/2022 10:12 AM EDT RADIATION TREATMENT SUMMARY Routine 11/20/2022 11:10 AM EDT RADIATION TREATMENT SUMMARY Routine 11/19/2022 10:49 AM EDT RADIATION TREATMENT SUMMARY Routine 11/16/2022 10:34 AM EDT RADIATION TREATMENT SUMMARY Routine 11/15/2022 10:02 AM EDT RADIATION TREATMENT SUMMARY Routine 11/14/2022 10:37 AM EDT RADIATION TREATMENT SUMMARY Routine 11/13/2022 11:11 AM EDT RADIATION TREATMENT SUMMARY Routine 11/12/2022 10:07 AM EDT RADIATION TREATMENT SUMMARY Routine 11/09/2022 10:07 AM EDT RADIATION TREATMENT SUMMARY Routine 11/07/2022 10:03 AM EDT RADIATION TREATMENT SUMMARY Routine 11/06/2022 10:29 AM EDT RADIATION TREATMENT SUMMARY Routine 11/05/2022 10:10 AM EDT RADIATION TREATMENT SUMMARY Routine 11/02/2022 10:17 AM EDT RADIATION TREATMENT SUMMARY Routine 11/01/2022 10:07 AM EDT RADIATION TREATMENT SUMMARY Routine 10/31/2022 10:12 AM EDT RADIATION TREATMENT SUMMARY Routine 10/30/2022 10:08 AM EDT RADIATION TREATMENT SUMMARY Routine 10/29/2022 10:11 AM EDT RADIATION TREATMENT SUMMARY Routine 10/26/2022 10:12 AM EDT RADIATION TREATMENT SUMMARY Routine 10/25/2022 11:30 AM EDT RADIATION TREATMENT SUMMARY Routine 10/24/2022 10:21 AM EDT RADIATION TREATMENT SUMMARY Routine 10/23/2022 11:07 AM EDT RADIATION TREATMENT SUMMARY Routine 10/22/2022 12:23 PM EDT RADIATION TREATMENT SUMMARY Routine 10/19/2022 11:38 AM EDT RADIATION TREATMENT SUMMARY Routine 10/18/2022 12:04 PM EDT RADIATION TREATMENT SUMMARY Routine 10/17/2022 11:[address] PELVIS RADIATION THERAPY PLANNING WO CONTRAST Routine 10/10/2022 10:48 AM EDT Prostate cancer (HCC) SEP URINALYSIS POC Routine 09/20/2022 8:26 AM EST Lower urinary tract symptoms (LUTS) INTRAOP AIRWAY PLACEMENT Routine 09/10/2022 12:56 PM EST PATHOLOGY TISSUE REQUEST Routine 09/10/2022 12:55 PM EST Elevated PSA PROSTATE BIOPSY URONAV / MRI FUSION (TRANSPERINEAL / TRANSRECTAL) 09/10/2022 12:48 PM EST Elevated PSA Special Needs called fortec [id number] called for disc-CONFIRMED CASE AND 1300 TIME WITH FORTEC- GL 09/06/22 MRI PROSTATE W WO CONTRAST Routine 08/10/2022 4:19 PM EST Elevated PSA SEP URINALYSIS POC Routine 07/09/2022 9:46 AM EST Elevated PSA PROSTATE SPECIFIC ANTIGEN (TUMOR MARKER) Routine 07/06/2022 11:11 AM EST Elevated PSA LEFT VENTRICULOGRAM Routine 05/30/2022 3:43 PM EDT Shortness of breath Angina pectoris syndrome CARDIAC PROCEDURE Routine 05/30/2022 3:43 PM EDT Shortness of breath Angina pectoris syndrome CARDIAC PROCEDURE Routine 05/30/2022 3:43 PM EDT Shortness of breath Angina pectoris syndrome POCT CO-OXIMETRY Routine 05/30/2022 3:24 PM EDT POCT CO-OXIMETRY Routine 05/30/2022 3:19 PM EDT POCT CO-OXIMETRY Routine 05/30/2022 3:18 PM EDT SOURCING INTERN HEMODYNAMIC WAVEFORMS Routine 05/30/2022 2:54 PM EDT CBC STAT 05/30/2022 1:28 PM EDT PT / INR Routine 05/24/2022 12:03 PM EDT BASIC METABOLIC PANEL Routine 05/24/2022 12:03 PM EDT EC ECHOCARDIOGRAM COMPLETE W DOPPLER AND COLOR FLOW MAPPING Routine 05/04/2022 10:12 AM EDT SOB (shortness of breath) Heart murmur Edema, unspecified type CT CHEST ABDOMEN W CONTRAST Routine 04/24/2022 4:04 PM EDT Mass, chest CREATININE ISTAT Routine 04/24/2022 3:58 PM EDT XR CHEST PA AND LATERAL Routine 04/12/20 11:50 AM EDT SOB (shortness of breath) Heart murmur Edema, unspecified type POCT EKG Routine 04/12/2022 10:47 AM EDT SOB (shortness of breath) Dizziness Fatigue, unspecified type Heart murmur Edema, unspecified type PROSTATE SPECIFIC ANTIGEN (TUMOR MARKER) Routine 01/17/2022 1:04 PM EDT Lower urinary tract symptoms (LUTS) Elevated PSA URINALYSIS Routine 01/17/2022 1:04 PM EDT Lower urinary tract symptoms (LUTS) URINE CULTURE (NO STAIN) Routine 01/17/2022 1:04 PM EDT Lower urinary tract symptoms (LUTS) INTRAOP AIRWAY PLACEMENT Routine 07/12/2021 9:57 AM EST PERIPHERAL BLOCK Routine 07/12/2021 9:55 AM EST CATARACT EXTRACTION WITH PHACOEMULSIFICATION AND INTRAOCULAR LENS 07/12/2021 9:47 AM EST Age-related nuclear cataract of right eye Special Needs PERIBULBAR SHORT BLOCK, MAC; AXIAL: 23.91 MM CORONAVIRUS 2019 Routine 07/08/2021 10:32 AM EST Pre-op testing Encounter for laboratory testing for COVID-19 virus PERIPHERAL BLOCK Routine 06/26/2021 8:33 AM EST CATARACT EXTRACTION WITH PHACOEMULSIFICATION AND INTRAOCULAR LENS 06/26/2021 8:18 AM EST NS (nuclear sclerosis), left Special Needs PERIBULBAR SHORT BLOCK/MAC; AL 23.75 MM INTRAOP AIRWAY PLACEMENT Routine 06/26/2021 8:10 AM EST CORONAVIRUS 2019 Routine 06/23/2021 10:32 AM EST Pre-op testing Encounter for laboratory testing for COVID-19 virus VA US LOWER EXTREMITY VENOUS RIGHT STAT 01/14/2018 11:00 AM EDT Leg edema PULMONARY FUNCTION TEST Routine 08/01/19 18 9:28 AM EST LDL, CALCULATED STAT 01/27/2016 11:00 AM EDT PROSTATE SPECIFIC ANTIGEN (SCREENING) STAT 01/27/2016 11:00 AM EDT Hyperlipemia Chronic fatigue syndrome Straining on urination LIPID PANEL REFLEX STAT 01/27/2016 11:00 AM EDT Hyperlipemia Chronic fatigue syndrome Straining on urination THYROID STIMULATING HORMONE STAT 01/27/2016 11:00 AM EDT Hyperlipemia Chronic fatigue syndrome Straining on urination COMPREHENSIVE METABOLIC PANEL STAT 01/27/2016 11:00 AM EDT Hyperlipemia Chronic fatigue syndrome Straining on urination CBC STAT 01/27/2016 11:00 AM EDT Hyperlipemia Chronic fatigue syndrome Straining on urination GMED COLONOSCOPY Routine 11/16/2015 9:00 AM EDT SCANNED RADIOLOGY REPORT 03/17/2015 9:16 AM EDT NM MYOCARDIAL PERFUSION SPECT STRESS AND REST Routine 03/16/2015 3:[address] STRESS TEST EXERCISE Routine 03/16/20 15 2:26 PM EDT Dyspnea EC ECHOCARDIOGRAM COMPLETE W DOPPLER AND COLOR FLOW MAPPING Routine 03/16/2015 1:33 PM EDT Dyspnea SCANNED EKG 05/22/2014 7:31 AM EDT XR CHEST PA AND LATERAL CHARI 05/19/20 14 10:03 PM EDT EK EKG 12 LEAD STAT 05/19/2014 9:43 PM EDT EC ECHOCARDIOGRAM COMPLETE W DOPPLER AND COLOR FLOW MAPPING Routine 01/20/2013 8:05 AM EDT Edema Asbestosis (HCC) XR CHEST PA AND LATERAL Routine 01/21/20 13 7:31 AM EDT Asbestosis (HCC) SCANNED LABS 03/21/2010 12:00 AM EDT PROSTATE SPECIFIC ANTIGEN (SCREENING) Routine 03/20/2010 9:12 PM EDT COMPREHENSIVE METABOLIC PANEL Routine 03/20/2010 9:12 PM EDT LDL, CALCULATED Routine 03/20/2010 9:12 PM EDT LIPID PANEL REFLEX Routine 03/20/2010 9:12 PM EDT DIFFERENTIAL Routine 03/20/2010 9:12 PM EDT CBC WITH DIFF Routine 03/20/2010 9:12 PM EDT SCANNED OR REPORT 03/07/2010 12:00 AM EDT XX HIP PINNING IN OR Routine 12/22/2007 9:56 AM EDT FL FLUORO 1 HOUR Routine 12/22/2007 9:[address] HEAD 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 Routine 12/21/2007 12:00 PM EDT EK EKG REG Routine 12/21/2007 11:57 AM EDT XX CHEST PA & LATERAL Routine 12/21/2007 11:05 AM EDT XX FEMUR Routine 12/21/2007 10:50 AM EDT XX HIP & PELVIS Routine 12/21/2007 10:40 AM EDT XX CERVICAL SPINE 2/3 VIEWS Routine 06/28/2005 9:53 AM EST DIAG C SPINE 2 OR 3 VIEWS Routine 04/19/2005 12:00 AM EDT DIAG C SPINE 2 OR 3 VIEWS Routine 03/27/2005 12:00 AM EDT DIAG FOREIGN BODY DETECTION EYE Routine 03/26/2005 12:[address] C-SPINE W/O CONTRAST Routine 03/26/20 12:00 AM EDT DIAG LS SPINE 2 OR 3 VIEW Routine 03/26/2005 12:00 AM EDT DIAG C SPINE MIN 4 VIEWS Routine 03/26/2005 12:00 AM EDT DIAG CHEST PA & LAT Routine 03/26/2005 12:00 AM EDT DIAG ANKLE - MIN 3 VIEWS RT Routine 03/26/2005 12:00 AM EDT DIAG ANKLE - MIN 3 VIEWS RT Routine 03/26/2005 12:00 AM EDT DIAG SHOULDER MIN 2 VIEWS RIGHT Routine 03/26/2005 12:00 AM EDT Results * LIPID PANEL REFLEX (02/23/2025 11:04 AM EDT) Only the most recent of3 resultswithin the time period is included. Cholesterol 111 <200 mg/dL 02/23/2025 6:26 PM EDT [facility] Comment: < 200 Desirable 200 - 239 Borderline High >= 240 High Triglyceride 78 <150 mg/dL 02/23/2025 6:26 PM EDT [facility] Comment: < 150 Normal 150 - 199 Borderline High 200 - 499 High >= 500 Very High HDL 53 >=40 mg/dL 02/23/2025 6:26 PM EDT [facility] Comment: > 60 Optimal 40 - 60 Acceptable < 40 Low LDL Calculated 42 <100 mg/dL 02/23/2025 6:26 PM EDT [facility] Comment: < 100 Optimal 100 - 129 Near or above optimal 130 - 159 Borderline High 160 - 189 High >= 190 Very High The National Institutes of Health (NIH) equation is used for all lipid panels that report calculated LDL (LDL-C). Non-HDL-C Calculated 58 <=129 mg/dL 02/23/2025 6:26 PM EDT [facility] Comment: <130 Desirable 130-159 Above Desirable 160-189 Borderline High 190-219 High >= 220 Very High Fasting Specimen? No None 025 6:26 PM EDT [facility] Blood VENOUS BLOOD / Unknown Venipuncture / Unknown 02/23/2025 11:04 AM EDT 02/23/2025 11:05 AM EDT Charisse Barry APRN CHEMISTRY ORDERABLES Final R esult [facility] [address] [facility] [facility] , [address] [place] [id number] * (ABNORMAL) CBC (02/23/2025 11:04 AM EDT) Only the most recent of5 resultswithin the time period is included. WBC 7.6 3.7 - 10.3 x10(3)/mcL 02/23/2025 4:04 PM EDT [facility] RBC 3.38(L) 4.60 - [...] 11:04 AM EDT 02/23/2025 11:05 AM EDT Charisse Barry APRN HEMATOLOGY ORDERABLES Final Result [facility] [address] [facility] , [place] [address] * (ABNORMAL) COMPREHENSIVE METABOLIC PANEL (02/23/2025 11:04 AM EDT) Only the most recent of5 resultswithin the time period is included. Sodium 134(L) 136 - 145 mmol/L 02/23/2025 6:26 PM EDT [facility] Potassium 3.4(L) 3.5 - 5.0 mmol/L 02/23/2025 6:26 PM EDT [facility] Chloride 94(L) 98 - 107 mmol/L 02/23/2025 6:26 PM EDT [facility] Total CO2 28 22 - 29 mmol/L 02/23/2025 6:26 PM EDT [facility] Anion Gap 12 7 - 16 mmol/L 02/23/2025 6:26 PM EDT [facility] Calcium 8.9 8.8 - 10.4 mg/dL 02/23/2025 6:26 PM EDT [facility] Glucose Lvl 146(H) 70 - 99 mg/dL 02/23/2025 6:26 PM EDT [facility] BUN 10 8 - 23 mg/dL 02/23/2025 6:26 PM EDT [facility] Creatinine 0.88 0.67 - 1.30 mg/dL 02/23/2025 6:26 PM EDT [facility] Albumin 4.0 3.2 - 4.6 gm/dL 02/23/2025 6:26 PM EDT [facility] Total Protein 6.1(L) 6.4 - 8.3 gm/dL 02/23/2025 6:26 PM EDT [facility] Bili Total 0.9 0.2 - 1.4 mg/dL 02/23/2025 6:26 PM EDT [facility] ALT 15 <=41 U/L 02/23/2025 6:26 PM EDT [facility] AST 18 <=40 U/L 02/23/2025 6:26 PM EDT [facility] Alk Phos 69 40 - 129 U/L 02/23/2025 6:26 PM EDT [facility] eGFR (CKD-EPIcr 2020) 87 >=60 mL/min/1.7 3 m2 02/23/2025 6:26 PM EDT [facility] Comment:Estimated GFR was ca lculated using the CKD-EPIcr (2020) equation refit without race. The equation is recommended by the National Kidney Foundation - [place] [employer] Neph[employer] Task Force. Blood VENOUS BLOOD / Unknown Venipuncture / Unknown 02/23/2025 11:04 AM EDT 02/23/2025 11:05 AM EDT Charisse Dubon Jhonny ORTIZ CHEMISTRY ORDERABLES Final R esult Performing Organization Address [facility] Co de Phone Number [facility] [email or web address] [address] , [place] [address] * (ABNORMAL) TESTOSTERONE LEVEL TOTAL (02/02/2025 10:26 AM EDT) Testosterone Lvl 264(L) 300 - 720 ng/dL 02/03/2025 10:07 AM EDT [facility] Blood VENOUS BLOOD / Unknown Venipuncture / Unknown 02/02/2025 10:26 AM EDT 02/02/2025 10:26 AM EDT Narrative [facility] - 02/03/2025 10:07 AM EDT Interpretation of total testosterone level for individuals on replacement therapy requires clinical correlation by the prescribing provider. Reference intervals and/or therapeutic targets in these individuals may vary. Ingestion of shirley doses of biotin (>5 mg/day) taken within 8 hours of drawing blood sample can interfere with this immunoassay test. Bj Gramajo MD CHEMISTRY ORDERABLES Yoselyn l Result Performing Organization Address [facility] Co de Phone Number [facility] [email or web address] [address] , [place] [address] * PROSTATE SPECIFIC ANTIGEN (TUMOR MARKER) (02/02/2025 10:26 AM EDT) Only the most recent of9 resultswithin the time period is included. Total Psa 1.02 <=4.00 ng/mL 02/02/2025 6:27 PM EDT [facility] Blood VENOUS BLOOD / Unknown Venipuncture / Unknown 02/02/2025 10:26 AM EDT 02/02/2025 10:26 AM EDT Narrative [facility] - 02/02/2025 6:27 PM EDT The Jono Elecsys total PSA electrochemiluminescence (ECLIA) immunoassay is used. Results obtained with different test methods or kits cannot be used interchangeably. The Jono method is approved for use as an aid in the detection of prostate cancer when used in conjunction with a digital rectal exam in individuals with a prostate aged 50 years or older. The assay is also indicated for the serial measurement of PSA to aid in the prognosis and management of prostate cancer patients. Elevated tPSA concentrations can only suggest the presence of prostate cancer until biopsy is performed. Levels may also be elevated in benign prostatic hyperplasia or inflammatory conditions of the prostate. us Bj Gramajo MD CHEMISTRY ORDERABLES Yoselyn l Result Performing Organization Address [facility] Co de Phone Number [facility], [address], [place] [address] * ECG AND WAVEFORMS - TELEMETRY (10/27/2024 7:15 AM EDT) Only the most recent of4 resultswithin the time period is included. [facility] ECG INTERPRET Sinus Arrythmia [facility] 10/27/2024 7:15 AM EDT Narrative [facility] - 10/27/2024 7:18 AM EDT ROUTINE-PACS (BS) CA 0.18 QRS 0.09 QT 0.43 See Clinical Report link for waveform capture us Unknown Provider POINT OF CARE CARDIOLOGY Final Result Performing Organization Address [facility] de Phone Number [facility] [address] [place] [address] * (ABNORMAL) BASIC METABOLIC PANEL (10/27/2024 5:26 AM EDT) Only the most recent of4 resultswithin the time period is included. Sodium 136 136 - 145 mmol/L 10/27/2024 6:09 AM EDT [facility] Potassium 3.6 3.5 - 5.0 mmol/L 10/27/2024 6:09 AM EDT [facility] Chloride 99 98 - 107 mmol/L 10/27/2024 6:09 AM EDT [facility] Total CO2 26 22 - 29 mmol/L 10/27/2024 6:09 AM EDT [facility] Anion Gap 11 7 - 16 mmol/L 10/27/2024 6:09 AM EDT [facility] Calcium 8.5(L) 8.8 - 10.4 mg/dL 10/27/2024 6:09 AM EDT [facility], [facility] Glucose Lvl 118(H) 70 - 99 mg/dL 10/27/2024 6:09 AM EDT [facility] BUN 7(L) 8 - 23 mg/dL 10/27/2024 6:09 AM EDT [facility], [facility] Creatinine 0.93 0.67 - 1.30 mg/dL 10/27/2024 6:09 AM EDT [facility] eGFR (CKD-EPIcr 2020) 84 >=60 mL/min/1.7 3 m2 10/27/2024 6:09 AM EDT [facility] Comment:Estimated GFR was ca lculated using the CKD-EPIcr (2020) equation refit without race. The equation is recommended by the National Kidney Foundation - [place] [employer] Nephrology Task Force. Blood VENOUS BLOOD / Unknown Venipuncture / Unknown 10/27/2024 5:26 AM EDT 10/27/2024 5:40 AM EDT Gary Duke MD CHEMISTRY ORDERABLES Yoselyn walsh Result [facility] [employer] [address] [facility] , [place] [address] * SCANNED EKG (10/26/2024 1:25 PM EDT) Only the most recent of2 resultswithin the time period is included. Anatomical Region Laterality Modality Other 10/26/2024 1:25 PM EDT us Unknown Provider IMG ECG ORDERABLES Final Result * HEMOGLOBIN A1C (10/26/2024 5:11 AM EDT) Hgb A1C 5.1 4.2 - 5.6 % 10/26/2024 6:09 AM EDT [facility] [employer] [facility] Est. Avg Glucose 100 mg/dL 10/26/2024 6:09 AM EDT [facility] Blood VENOUS BLOOD / Unknown Venipuncture / Unknown 10/26/2024 5:11 AM EDT 10/26/2024 5:37 AM EDT Narrative [facility] - 10/26/2024 6:09 AM EDT REFERENCE RANGE: Normal: 4.0-5.6% Pre-diabetes: 5.7-6.4% Provisional diagnosis of diabetes: >6.4% Hgb F>10% and anything which shortens red cell survival, such as hemolytic anemia, or unstable hemoglobin variants such as HbSS, HbSC, or HbCC, will lower the HbA1c value associated with a given level of glycemic control. us Christopher Jacobs MD CHEMISTRY ORDERABLES Final Result [facility] [address] [facility] , [place] [address] * LIPID SCREEN (10/26/2024 5:11 AM EDT) Only the most recent of2 resultswithin the time period is included. Cholesterol 144 <200 mg/dL 10/26/2024 6:14 AM EDT [facility] Comment: < 200 Desirable 200 - 239 Borderline High >= 240 High Triglyceride 104 <150 mg/dL 10/26/2024 6:14 AM EDT [facility] Comment: < 150 Normal 150 - 199 Borderline High 200 - 499 High >= 500 Very High HDL 52 >=40 mg/dL 10/26/2024 6:14 AM EDT [facility] Comment: > 60 Optimal 40 - 60 Acceptable < 40 Low LDL Calculated 73 <100 mg/dL 10/26/2024 6:14 AM EDT [facility] Comment: < 100 Optimal 100 - 129 Near or above optimal 130 - 159 Borderline High 160 - 189 High >= 190 Very High The National Institutes of Health (NIH) equation is used for all lipid panels that report calculated LDL (LDL-C). Non-HDL-C Calculated 92 <=129 mg/dL 10/26/2024 6:14 AM EDT [facility] Comment: <130 Desirable 130-159 Above Desirable 160-189 Borderline High 190-219 High >= 220 Very High Fasting Specimen? Yes None 025 6:14 AM EDT [facility] Blood VENOUS BLOOD / Unknown Venipuncture / Unknown 10/26/2024 5:11 AM EDT 10/26/2024 5:37 AM EDT us Christopher Jacobs MD CHEMISTRY ORDERABLES Final Result [facility] [address] [place] [address] , [place] [address] * LEFT HEART CATH, CORONARY ANGIOGRAM (COR/LHC/LV GRAM, CARDIAC CATHETERIZATION), CORONARY PERCUTANEOUS INTERVENTION(PCI), CORONARY INTRAVASCULAR ULTRASOUND(IVUS) (10/25/2024 8:37 PM EDT) Only the most recent of2 resultswithin the time period is included. Narrative [facility] - 10/25/2024 8:43 PM EDT 1. Successful intervention to critical mid LAD stenosis with a 3.0 x 22 mm [place] stent. - Predilated with a 2.5 mm compliant balloon - Postdilated with a 3.25 mm NC balloon 2. IVUS of left main demonstrated no significant degree of stenosis with likely angiographic pleat a proximal vessel. 3. Minimal disease of remaining vessels. 4. Moderately elevated LVEDP at 20 mmHg. - Extremely difficult engagement of left main resulting in high contrast dose -Aspirin 81 mg lifelong - Plavix 75 mg daily - Standard risk factor modification [place] Procedure Details Procedural indication: NSTEMI with ongoing chest pain Procedural consent: Risks and benefits discussed directly with patient Procedural details: Patient prepped and draped in normal sterile fashion. Right radial access was obtained. JR catheter was advanced unable to manipulate the catheter called. We then exchanged for femoral access. Standard micropuncture technique was used with a 6 Serbian sheath placed. JL catheter was advanced over the wire with some difficulty left main was selectively engaged. Multiple angiographic views obtained. We then exchanged for a JR catheter. This was placed in the LV cavity. Pressure measurement obtained. We then engaged the right coronary artery. Angiography was obtained. Decision was made to proceed with intervention. The patient received heparin to maintain a goal ACT greater than 300. Attempted XB LAD, AL, [place], LCB, JL I [place] left multiple different sizes and catheters. None came Close to engaging. Also developed a lot of resistance in the iliac system. Finally with a 23 cm sheath and an XB guide with aggressive maneuvering I was able to approximate the ostium. I was then able to free wire and secured the vessel. One wire was placed in the distal LAD. The other wire was placed into the moderate-sized diagonal. The lesion was predilated with a 2.5 mm compliant balloon. We then placed a 3.0 x 22 mm Simon stent under careful angiographic guidance into the mid LAD covering the lesion. Stent was successfully deployed. Angiography showed that the diagonal although pinched had LA-3 flow and was patent. Sidebranch wire was removed. The vessel was postdilated with a 3.25 mm NC balloon on the proximal end at high pressures. IVUS was to be performed. There was some unclear technical issue with advancing the IVUS over the LAD wire so it was advanced over a wire which was now in the circumflex. The left main was interrogated. She is chart had been performed. Site was appropriate for closure. Single Perclose device used to achieve hemostasis. Radial band was applied. Complications: None Blood loss: 20 mL Coronary Findings Diagnostic Dominance: Left Left Main: Ost LM lesion is 10% stenosed. Ultrasound (IVUS) was performed. Minimal plaque burden was detected. Left Anterior Descending: Mid LAD lesion is 99% stenosed. Culprit lesion. LA flow is 1. Left Circumflex: The vessel exhibits minimal luminal irregularities. Left Posterior Atrioventricular Artery: The vessel exhibits minimal luminal irregularities. Right Coronary Artery: The vessel exhibits minimal luminal irregularities. Intervention Mid LAD lesion: Stent: The pre-interventional distal flow is decreased (LA 2). Pre-stent angioplasty was performed using a CATHETER EUPHORA BALLOON DILATATION 2.5MM BALLOON DIAMETER 12MM BALLOON LENGTH supply. A STENT [id number] SIMON FRONTIER [id number] drug eluting stent was successfully placed. The strut is apposed. Post-stent angioplasty was performed using a CATHETER NC TREK LORI CORONARY DILATATION BALLOON 3.25 MM X 8 MM / RAPID-EXCHANGE supply. The post-interventional distal flow is normal (LA 3). The intervention was successful. No complications occurred at this lesion. There is a 0% residual stenosis post intervention. Left Heart Pressures LVDP / pre a : 20 mmHg us Gary Duke MD CARDIAC CATH ORDERABLES F inal Result [facility] * EK EKG 12 LEAD (10/25/2024 8:33 PM EDT) Only the most recent of3 resultswithin the time period is included. Anatomical Region Laterality Modality Electrocardiogra phy 10/25/2024 8:46 PM EDT Impressions 10/26/2024 9:38 AM EDT [place] Test Date: 2024-10-25 Pat Name: LYN BOWSER Department: [facility] Room: [facility] Gender: Male Shear Setter: DAYANA : 1945 Requested By: GARY Rogers Order Number: [id number] Reading MD: Braulio Taylor Measurements Intervals [place] Rate: 83 P: 42 CA: 185 QRS: 20 QRSD: 85 T: 42 QT: 313 QTc: 370 Interpretive Statements SINUS RHYTHM WITH OCCASIONAL SUPRAVENTRICULAR PREMATURE COMPLEXES LOW QRS VOLTAGE IN EXTREMITY LEADS NONSPECIFIC ST ELEVATION POSSIBLE ANTERIOR MYOCARDIAL INFARCTION, PROBABLY OLD Electronically Signed On 10-26-2024 09:38:28 EDT by Braulio Taylor Narrative Procedure Note Braulio Taylor MD - 10/26/2024 IMPRESSION [place] Test Date: 2024-10-25 Pat Name: LYN MAGUE Department: [facility]PID Room: [facility] Gender: Male Shear Setter: DAYANA : 1945 Requested By: GARY Rogers Order Number: [id number] Reading : Braulio Taylor Measurements Intervals [place] Rate: 83 P: 42 CA: 185 QRS: 20 QRSD: 85 T: 42 QT: 313 QTc: 370 Interpretive Statements SINUS RHYTHM WITH OCCASIONAL SUPRAVENTRICULAR PREMATURE COMPLEXES LOW QRS VOLTAGE IN EXTREMITY LEADS NONSPECIFIC ST ELEVATION POSSIBLE ANTERIOR MYOCARDIAL INFARCTION, PROBABLY OLD Electronically Signed On 10-26-2024 09:38:28 EDT by Braulio Taylor us Gary Duke MD IMG ECG ORDERABLES Final Result * (ABNORMAL) ACTIVATED CLOTTING TIME LR POC (10/25/2024 8:18 PM EDT) Only the most recent of4 resultswithin the time period is included. Pathologist [facility] ACT-LR >400(H) 89 - 169 second(s) 10/25/2024 8:24 PM EDT [facility] Blood BLOOD SPECIMEN / Unknown 10/25/2024 8:18 PM EDT 10/25/2024 8:24 PM EDT us Christopher Jacobs MD POINT OF CARE TEST O RDERABLES Final Result Performing Organization Address [facility] Co de Phone Number [facility] [address] [place] [address] * SOURCING INTERN HEMODYNAMIC WAVEFORMS (10/25/2024 6:56 PM EDT) Only the most recent of2 resultswithin the time period is included. 10/25/2024 6:56 PM EDT us Gary Duke MD CARDIAC CATH ORDERABLES F inal Result Performing Organization Address [facility] Co de Phone Number [facility] [address] [place] [address] * (ABNORMAL) HEPARIN ANTI-XA, UNF (10/25/2024 6:12 PM EDT) [facility] Heparin Level UNF 0.27(L) 0.30 - 0.70 IU/mL 10/25/2024 6:32 PM EDT [facility] Comment:The therapeutic rang e for heparinized patients monitored by the Heparin Lvl UF is 0.30-0.70 IU/mL. Blood VENOUS BLOOD / Unknown Venipuncture / Unknown 10/25/2024 6:12 PM EDT 10/25/2024 6:19 PM EDT us Mart Rice MD HEMATOLOGY ORDERABLES Final Res ult Performing Organization Address City/[facility]/ZIP Co de Phone Number [facility] [address] [place] [address] , [address] [place], [place] [id number] * EC ECHOCARDIOGRAM 2D M MODE COMPLETE W CONTRAST (10/25/2024 2:32 PM EDT) [facility] Ejection Fraction 40-45% PYRAMIS MITRAL REGURGITATION trace PYRAMIS AORTIC STENOSIS no PYRAMIS LV DIASTOLIC PLAX [id number] cm PYRAMIS Anatomical Region Laterality Modality Electrocardiogra phy 10/25/2024 1:58 PM EDT Impressions 10/25/2024 4:46 PM EDT Conclusions * Technically difficult study. * Left ventricular chamber dimension is normal. * Left ventricular function is mildly reduced with an estimated ejection fraction of 40-45%. * Right ventricular systolic function is normal. * The apex, mid inferoseptal, and mid anteroseptal are akinetic. * The left ventricular diastolic function is consistent with grade II diastolic dysfunction (elevated left atrial pressure). * Left atrial chamber dimension is moderately enlarged. * There is mild tricuspid valve regurgitation. * Estimated pulmonary artery systolic pressure is 34 mmHg. * Normal inferior vena cava with >50% collapse upon inspiration consistent with normal right atrial pressure, 3 mmHg. Narrative Procedure Note Greyson Stephen MD - 10/25/2024 IMPRESSION Conclusions * Technically difficult study. * Left ventricular chamber dimension is normal. * Left ventricular function is mildly reduced with an estimatedejection fraction of 40-45%. * Right ventricular systolic function is normal. * The apex, mid inferoseptal, and mid anteroseptal are akinetic. * The left ventricular diastolic function is consistent with grade II diastolic dysfunction (elevated left atrial pressure). * Left atrial chamber dimension is moderately enlarged. * There is mild tricuspid valve regurgitation. * Estimated pulmonary artery systolic pressure is 34 mmHg. * Normal inferior vena cava with >50% collapse upon inspirationconsistent with normal right atrial pressure, 3 mmHg. us Christopher Jacobs MD IMG ECHO ORDERABLES Final Result * (ABNORMAL) TROPONIN-T HIGH SENSITIVITY 2HR (10/25/2024 11:24 AM EDT) [id number] 2HR 484(HH) <22 ng/L 10/25/2024 11:46 AM EDT [facility] Comment:See the website loraine moon for rule out [place] care pathway, conditions other than AMI that can cause elevated hs cTnT, and comparison of values from the 4th and 5th generation Mary tests. https://[email or web address]/clinical-answers/gnt-78309653/cpm-[email or web address] 21440 hs-cTnT 2Hr Delta from Baseline 10(HH) <4 ng/L 10/25/2024 11:46 AM EDT [facility] Blood VENOUS BLOOD / Unknown Venipuncture / Unknown 10/25/2024 11:24 AM EDT 10/25/2024 11:27 AM EDT Narrative [facility] - 10/25/2024 11:46 AM EDT Ingestion of shirley doses of biotin (>5 mg/day) taken within 8 hours of drawing blood sample can interfere with this immunoassay test. us Mart Rice MD CHEMISTRY ORDERABLES Final Resu lt [facility] [address] [id number] * CT ANGIOGRAM CHEST ABDOMEN PELVIS W CONTRAST (10/25/2024 10:31 AM EDT) Anatomical Region Laterality Modality Abdomen, Pelvis, Chest Computed Tomography 10/25/2024 10:3 1 AM EDT Impressions 10/25/2024 11:00 AM EDT 1. No acute findings within the chest, abdomen, or pelvis. 2. Normal caliber thoracoabdominal aorta without CT evidence of acute aortic pathology. 3. No CT evidence of pulmonary embolic disease. 4. Large hiatal hernia. 5. Additional chronic and incidental findings as described within the body of this report. - Note: Radiology results need to be interpreted within a comprehensive clinical context. If you have questions about the radiology report, please contact the office of the ordering clinician. Narrative 10/25/2024 11:[address] ANGIOGRAM CHEST ABDOMEN PELVIS W CONTRAST 10/25/2024 10:31 AM CLINICAL HISTORY: -Chest Pain -Chest pain syncope rule out dissection. Wait on creatinine. COMPARISON: High-resolution chest CT without IV contrast 12/28/2022; CT chest and abdomen with IV contrast 04/24/2022 PROCEDURE COMMENTS: Multidetector CT angiography of the region of interest. Isovue 370 IV contrast given as recorded in EPIC. Multiplanar reconstructions generated and reviewed, including 3D MIPS. Dose 1 : CT DLP Total : 538.12 mGycm DLP Spiral Max : 382.11 mGycm Maximum CTDI Vol : 5.98 mGy FINDINGS: FINDINGS CT ANGIOGRAPHY: The thoracoabdominal aorta and iliac arteries are normal in caliber. Very mild scattered calcified plaque. No CT evidence of acute aortic pathology. Specifically, no evidence of intramural hematoma on the unenhanced images or dissection flap on postcontrast imaging. Bovine arch. Proximal branch vessels are patent. No CT evidence of pulmonary embolic disease. Pulmonary arteries are normal caliber. Cardiac size is normal. No pericardial effusion. Aortic valvular calcifications noted. Celiac axis is patent and measures up to 10 mm in caliber more distally. SMA, renal arteries, and JJ are patent. Coronary artery calcification: Mild. FINDINGS CT CHEST: SUPPORT DEVICES: None. LOWER CERVICAL REGION: Evaluation of the lower cervical region is unremarkable. LYMPH NODES: No axillary, mediastinal, or hilar lymphadenopathy. Small calcified mediastinal and hilar lymph nodes are compatible with the sequela of remote granulomatous disease. PLEURAL SPACES/DIAPHRAGM: No pleural effusion or pneumothorax. LUNGS: Trachea and proximal bronchi are patent except for some thin linear mucus secretions within the thoracic trachea (for example axial image 95). Lungs are symmetrically inflated. No acute pulmonary process. No suspicious pulmonary nodule. There are a few scattered tiny calcified granulomata. UPPER GI TRACT: There is a large hiatal hernia containing mesenteric fat and vessels as well as a significant portion of the stomach. BODY WALL: No acute osseous abnormality. Minimal superior endplate compression deformity involving T11 is chronic and unchanged. FINDINGS CT ABDOMEN/PELVIS: LIVER: Smooth contour. No new or suspicious liver lesion. Low-attenuation left hepatic lobe lesions are stable since 2021 and compatible with benign etiology such as cysts. SPLEEN: Normal in size and without focal lesion. BILIARY TREE: Gallbladder is present. No biliary ductal dilatation. PANCREAS: Unremarkable. ADRENAL GLANDS: Unremarkable. KIDNEYS: Enhance symmetrically. No hydronephrosis or suspicious renal lesion. 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 LYMPH NODES: No abdominal or pelvic lymphadenopathy. PERITONEUM/MESENTERY/OMENTUM: No free fluid, fluid collection, or extraluminal gas. GI TRACT: Previously described hiatal hernia. No bowel obstruction. Appendix is normal. No acute bowel inflammatory changes or abnormal bowel thickening. There is colonic diverticulosis without findings of diverticulitis. PELVIC UROGENITAL STRUCTURES: Assessment is degraded by streak artifact. Urinary bladder is well-distended and otherwise unremarkable within the constraints of this study. Prostate gland is present. Seminal vesicles are symmetric. BODY WALL: No acute osseous abnormality. Postoperative changes of a left total hip arthroplasty. Remote and unchanged L1 vertebral body compression fracture. Procedure Note Ezra Mcconnell MD - 10/25/2024 CT ANGIOGRAM CHEST ABDOMEN PELVIS W CONTRAST 10/25/2024 10:31 AM CLINICAL HISTORY: -Chest Pain -Chest pain syncope rule out dissection. Wait on creatinine. COMPARISON: High-resolution chest CT without IV contrast 12/28/2022; CTchest and abdomen with IV contrast 04/24/2022 PROCEDURE COMMENTS: Multidetector CT angiography of the region ofinterest. Isovue 370 IV contrast given as recorded in EPIC. Multiplanarreconstructions generated and reviewed, including 3D MIPS. Dose 1 : CT DLP Total : 538.12 mGycm DLP Spiral Max : 382.11 mGycm Maximum CTDI Vol : 5.98 mGy FINDINGS: FINDINGS CT ANGIOGRAPHY: The thoracoabdominal aorta and iliac arteries are normal in caliber. Verymild scattered calcified plaque. No CT evidence of acute aortic pathology. Specifically, no evidence of intramural hematoma on the unenhanced imagesor dissection flap on postcontrast imaging. Bovine arch. Proximal branchvessels are patent. No CT evidence of pulmonary embolic disease. Pulmonaryarteries are normal caliber. Cardiac size is normal. No pericardial effusion. Aorticvalvular calcifications noted. Celiac axis is patent and measures up to 10 mm incaliber more distally. SMA, renal arteries, and JJ are patent. Coronary artery calcification: Mild. FINDINGS CT CHEST: SUPPORT DEVICES: None. LOWER CERVICAL REGION: Evaluation of the lower cervical region isunremarkable. LYMPH NODES: No axillary, mediastinal, or hilar lymphadenopathy. Smallcalcified mediastinal and hilar lymph nodes are compatible with the sequela ofremote granulomatous disease. PLEURAL SPACES/DIAPHRAGM: No pleural effusion or pneumothorax. LUNGS: Trachea and proximal bronchi are patent except for some thin linearmucus secretions within the thoracic trachea (for example axial image 95). Lungsare symmetrically inflated. No acute pulmonary process. No suspiciouspulmonary nodule. There are a few scattered tiny calcified granulomata. UPPER GI TRACT: There is a large hiatal hernia containing mesenteric fatand vessels as well as a significant portion of the stomach. BODY WALL: No acute osseous abnormality. Minimal superior endplatecompression deformity involving T11 is chronic and unchanged. FINDINGS CT ABDOMEN/PELVIS: LIVER: Smooth contour. No new or suspicious liver lesion. Low-attenuationleft hepatic lobe lesions are stable since 2021 and compatible with benignetiology such as cysts. SPLEEN: Normal in size and without focal lesion. BILIARY TREE: Gallbladder is present. No biliary ductal dilatation. PANCREAS: Unremarkable. ADRENAL GLANDS: Unremarkable. KIDNEYS: Enhance symmetrically. No hydronephrosis or suspicious renallesion. 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 LYMPH NODES: No abdominal or pelvic lymphadenopathy. PERITONEUM/MESENTERY/OMENTUM: No free fluid, fluid collection, orextraluminal gas. GI TRACT: Previously described hiatal hernia. No bowel obstruction.Appendix is normal. No acute bowel inflammatory changes or abnormal bowel thickening.There is colonic diverticulosis without findings of diverticulitis. PELVIC UROGENITAL STRUCTURES: Assessment is degraded by streak artifact.Urinary bladder is well-distended and otherwise unremarkable within theconstraints of this study. Prostate gland is present. Seminal vesicles are symmetric. BODY WALL: No acute osseous abnormality. Postoperative changes of a lefttotal hip arthroplasty. Remote and unchanged L1 vertebral body compressionfracture. IMPRESSION: 1. No acute findings within the chest, abdomen, or pelvis. 2. Normal caliber thoracoabdominal aorta without CT evidence of acuteaortic pathology. 3. No CT evidence of pulmonary embolic disease. 4. Large hiatal hernia. 5. Additional chronic and incidental findings as described within thebody of this report. - Note: Radiology results need to be interpreted within a comprehensiveclinical context. If you have questions about the radiology report, please contactthe office of the ordering clinician. Mart Rice MD IMG CT ORDERABLES Final Result * CT CERVICAL SPINE WO CONTRAST (10/25/2024 10:22 AM EDT) Anatomical Region Laterality Modality C-spine Computed Tomogra phy 10/25/2024 10:2 2 AM EDT Impressions 10/25/2024 11:04 AM EDT 1. No acute osseous trauma. 2. Multilevel multisite cervical spondylosis, including 4-5 mm subluxation C3-C4 with moderate central canal stenosis. - Note: Radiology results need to be interpreted within a comprehensive clinical context. If you have questions about the radiology report, please contact the office of the ordering clinician. Narrative 10/25/2024 11:[address] CERVICAL SPINE WITHOUT CONTRAST: 10/25/2024 10:22 AM CLINICAL HISTORY: 79 years; syncopal episode with -Head injury and trauma. COMPARISON: No direct comparisons. Head CT obtained at same time. PROCEDURE COMMENTS: Multidetector CT of the cervical spine with 2 mm multiplanar reformatting per protocol. FINDINGS: No acute fracture or traumatic malalignment. No prevertebral soft tissue swelling. There is multisite degenerative disease. C3-C4 has 4-5 mm anterior subluxation with posterior inferior C3 margin abutting superior C4 endplate. Other alignment is preserved. Numerous lytic cystic changes involve odontoid process. These are not related to mild to moderate prominence partially calcified ligamentous prominence posterior to odontoid. C4-C5 through C6-C7 and T1-T2 have either yozy-om-ntda contact or partial bony fusion. Endplates are irregular anterior posterior endplate hypertrophy. C7-T1 moderately narrowed with anterior vacuum disc phenomena. Moderate central canal stenosis at C3-C4 from subluxation. Other mild/moderate central canal stenosis at C4-C5 and C5-C6. Bilateral C3-C4 left C2-C3 and right C4-C5 facet joints have advanced hypertrophy. Right C6-C7 facet joint is fused. Multilevel moderate neural foraminal stenosis. Greatest moderate to advanced stenosis is at bilateral C5-C6. Right posterior proximal second rib has asymmetric degenerative pseudoarticulation with right T2 transverse process. Procedure Note Manasa Davis MD - 10/25/2024 CT CERVICAL SPINE WITHOUT CONTRAST: 10/25/2024 10:22 AM CLINICAL HISTORY: 79 years; syncopal episode with -Head injury andtrauma. COMPARISON: No direct comparisons. Head CT obtained at same time. PROCEDURE COMMENTS: Multidetector CT of the cervical spine with 2 mmmultiplanar reformatting per protocol. FINDINGS: No acute fracture or traumatic malalignment. No prevertebral soft tissue swelling. There is multisite degenerative disease. C3-C4 has 4-5 mm anteriorsubluxation with posterior inferior C3 margin abutting superior C4 endplate. Otheralignment is preserved. Numerous lytic cystic changes involve odontoid process.These are not related to mild to moderate prominence partially calcifiedligamentous prominence posterior to odontoid. C4-C5 through C6-C7 and T1-T2 haveeither gzko-wf-vpdv contact or partial bony fusion. Endplates are irregularanterior posterior endplate hypertrophy. C7-T1 moderately narrowed with anteriorvacuum disc phenomena. Moderate central canal stenosis at C3-C4 from subluxation. Othermild/moderate central canal stenosis at C4-C5 and C5-C6. Bilateral C3-C4 left C2-C3 andright C4-C5 facet joints have advanced hypertrophy. Right C6-C7 facet joint isfused. Multilevel moderate neural foraminal stenosis. Greatest moderate toadvanced stenosis is at bilateral C5-C6. Right posterior proximal second rib has asymmetric degenerative pseudoarticulation with right T2 transverseprocess. IMPRESSION: 1. No acute osseous trauma. 2. Multilevel multisite cervical spondylosis, including 4-5 mm subluxationC3-C4 with moderate central canal stenosis. - Note: Radiology results need to be interpreted within a comprehensiveclinical context. If you have questions about the radiology report, please contactthe office of the ordering clinician. Mart Rice MD IM CT ORDERABLES Final Result * CT HEAD WO CONTRAST (10/25/2024 10:21 AM EDT) Anatomical Region Laterality Modality Head Computed Tomogra phy 10/25/2024 10:2 1 AM EDT Impressions 10/25/2024 10:55 AM EDT 1. No acute intracranial process or evidence of head trauma. 2. Well-preserved brain for age. - Note: Radiology results need to be interpreted within a comprehensive clinical context. If you have questions about the radiology report, please contact the office of the ordering clinician. Narrative 10/25/2024 10:[address] HEAD WO CONTRAST: 10/25/2024 10:21 AM CLINICAL HISTORY: 79 years -old; -Syncope and head injury COMPARISON: None. PROCEDURE COMMENTS: Routine noncontrast head CT with multiplanar reconstructions. FINDINGS: Ventricles are normal in size, configuration and position. Cerebral sulci are mild to moderately prominent. Brain parenchyma attenuation is normal. No parenchymal or extra-axial hemorrhage. No localized mass effect or midline shift. Calvarial and included facial osseous structures are intact. No TMJ dislocation. Minor nonuniform patchy mucosal thickening bilateral ethmoid sinuses. No scalp or facial soft tissue contusions. Bilateral cataract surgery. Procedure Note Manasa Davis MD - 10/25/2024 CT HEAD WO CONTRAST: 10/25/2024 10:21 AM CLINICAL HISTORY: 79 years -old; -Syncope and head injury COMPARISON: None. PROCEDURE COMMENTS: Routine noncontrast head CT with multiplanar reconstructions. FINDINGS: Ventricles are normal in size, configuration and position. Cerebral sulciare mild to moderately prominent. Brain parenchyma attenuation is normal. No parenchymal or extra-axial hemorrhage. No localized mass effect ormidline shift. Calvarial and included facial osseous structures are intact. No TMJdislocation. Minor nonuniform patchy mucosal thickening bilateral ethmoid sinuses. Noscalp or facial soft tissue contusions. Bilateral cataract surgery. IMPRESSION: 1. No acute intracranial process or evidence of head trauma. 2. Well-preserved brain for age. - Note: Radiology results need to be interpreted within a comprehensiveclinical context. If you have questions about the radiology report, please contactthe office of the ordering clinician. Mart Rice MD IMG CT ORDERABLES Final Result * (ABNORMAL) TROPONIN-T HIGH SENSITIVITY BASELINE W/ REFLEX (10/25/2024 9:27 AM EDT) jm-aEmrsvfrd-Q 474(HH) <22 ng/L 10/25/2024 9:54 AM EDT [facility] Comment:See the website belo w for rule out [place] care pathway, conditions other than AMI that can cause elevated hs cTnT, and comparison of values from the 4th and 5th generation Mary tests. https://[email or web address]/clinical-answers/[email or web address]/[email or web address] 27876 Blood VENOUS BLOOD / Unknown Venipuncture / Unknown 10/25/2024 9:27 AM EDT 10/25/2024 9:31 AM EDT Narrative [facility] - 10/25/2024 9:54 AM EDT Ingestion of shirley doses of biotin (>5 mg/day) taken within 8 hours of drawing blood sample can interfere with this immunoassay test. us Mart Rice MD CHEMISTRY ORDERABLES Final Resu lt Performing Organization Address [facility] Co de Phone Number [facility] [address] [place], [place] [id number] * PARTIAL THROMBOPLASTIN TIME (10/25/2024 9:27 AM EDT) Pathologist [facility] PTT 32.1 27.9 - 38.7 second(s) 10/25/2024 9:48 AM EDT [facility] Comment: Therapeutic range for unfractionated heparin: 50.1 - 98.7 seconds Therapeutic range for direct thrombin inhibitors: Argatroban is 1.5 to 3 times the aPTT baseline. Lepirudin is 1.5 to 2 times the aPTT baseline. The aPTT should not exceed 100 seconds. The dosage of Argatroban should be decreased in patients with hepatic impairment. The dosage of Lepirudin should be decreased in renal insufficiency. Blood VENOUS BLOOD / Unknown Venipuncture / Unknown 10/25/2024 9:27 AM EDT 10/25/2024 9:34 AM EDT us Mart Rice MD HEMATOLOGY ORDERABLES Final Res ult Performing Organization Address [facility] Co de Phone Number [facility] [address] [place] [address], [place] [address] * PT / INR (10/25/2024 9:27 AM EDT) Only the most recent of3 resultswithin the time period is included. Pathologist [facility] PT 10.7 10.5 - 13.6 second(s) 10/25/2024 9:48 AM EDT [facility] INR 0.90 0.89 - 1.16 (ratio) 10/25/2024 9:48 AM EDT [facility] Comment: Level of Therapy Indications Target INR Range Standard Dose Treatment and prophylaxis of venous 2.0 - 3.0 thrombosis, pulmonary embolism High Dose High risk patients with mechanical 2.5 - 3.5 heart valves Blood VENOUS BLOOD / Unknown Venipuncture / Unknown 10/25/2024 9:27 AM EDT 10/25/2024 9:34 AM EDT us Mart Rice MD HEMATOLOGY ORDERABLES Final Res ult [facility] [address] [facility], [address] [place] [id number] * (ABNORMAL) CBC WITH DIFF (10/25/2024 9:27 AM EDT) Only the most recent of3 resultswithin the time period is included. Pathologist [facility] WBC 10.0 3.7 - 10.3 x10(3)/mcL 10/25/2024 9:34 AM EDT [facility] RBC 3.71(L) 4.60 - 6.10 x10(6)/mcL 10/25/2024 9:34 AM EDT [facility] Hgb 12.7(L) 13.7 - 17.5 g/dL 10/25/2024 9:34 AM EDT [facility] Hct 38.2(L) 40.0 - 51.0 % 10/25/2024 9:34 AM EDT [facility] MCV 103.0(H) 80.0 - 100.0 fL 10/25/2024 9:34 AM EDT [facility] MCH 34.2(H) 26.0 - 34.0 pg 10/25/2024 9:34 AM EDT [facility] MCHC 33.2 30.7 - 35.5 g/dL 10/25/2024 9:34 AM EDT [facility] RDW 15.6(H) <=14.9 % 10/25/2024 9:34 AM EDT [facility] Platelet 336 155 - 369 x10(3)/[facility] 10/25/2024 9:34 AM EDT [facility] MPV 10.1 8.8 - 12.5 fL 10/25/2024 9:34 AM EDT [facility] Neut Percent 68.4 % 10/25/2024 9:34 AM EDT [facility] Comment:Neutrophils equals s egs plus bands Imm Gran% 0.6 % 10/25/2024 9:34 AM EDT [facility] Comment:Automated count of m etamyelocytes, myelocytes and promyelocytes. Lymph Percent 19.9 % 10/25/2024 9:34 AM EDT [facility] [place] Percent 9.1 % 10/25/2024 9:34 AM EDT [facility] Eos Percent 1.1 % 10/25/2024 9:34 AM EDT [facility] Baso Percent 0.9 % 10/25/2024 9:34 AM EDT [facility] Neut # 6.8(H) 1.6 - 6.1 x10(3)/[facility] 10/25/2024 9:34 AM EDT [facility] Comment:Neutrophils equals s egs plus bands IMMGRAN# 0.1 0.0 - 0.1 x10(3)/[facility] 10/25/2024 9:34 AM EDT [facility] Comment:Automated count of m etamyelocytes, myelocytes and promyelocytes. An absolute IG <0.1 is reported as 0.0. Lymph # 2.0 1.2 - 3.9 x10(3)/[facility] 10/25/2024 9:34 AM EDT [facility] [place] # 0.9 0.3 - 0.9 x10(3)/[facility] 10/25/2024 9:34 AM EDT [facility] Eos# 0.1 0.0 - 0.5 x10(3)/[facility] 10/25/2024 9:34 AM EDT [facility] Baso # 0.1 0.0 - 0.1 x10(3)/mcL 10/25/2024 9:34 AM EDT [facility] Blood VENOUS BLOOD / Unknown Venipuncture / Unknown 10/25/2024 9:27 AM EDT 10/25/2024 9:31 AM EDT Mart Rice MD HEMATOLOGY ORDERABLES Final Res ult Performing Organization Address [facility] Co de Phone Number [address] [address] * (ABNORMAL) NT PROBNP (10/25/2024 9:27 AM EDT) Only the most recent of2 resultswithin the time period is included. NT Pro-BNP 4,058(H) <=852 pg/mL 10/25/2024 9:53 AM EDT [facility] Blood VENOUS BLOOD / Unknown Venipuncture / Unknown 10/25/2024 9:27 AM EDT 10/25/2024 9:31 AM EDT Narrative [facility] - 10/25/2024 9:53 AM EDT An NT pro-BNP level less than 300 pg/mL in any patient, regardless of age, effectively rules out acute CHF with a 99% negative predictive value. Ingestion of shirley doses of biotin (>5 mg/day) taken within 8 hours of drawing blood sample can interfere with this immunoassay test. us Mart Rice MD CHEMISTRY ORDERABLES Final Resu lt Performing Organization Address [facility] Co de Phone Number [facility] [address] [place] [address] * LACTIC ACID (10/25/2024 9:27 AM EDT) Lactic Acid 1.0 0.5 - 1.9 mmol/L 10/25/2024 9:48 AM EDT [facility] Blood VENOUS BLOOD / Unknown Venipuncture / Unknown 10/25/2024 9:27 AM EDT 10/25/2024 9:31 AM EDT us Mart Rice MD CHEMISTRY ORDERABLES Final Resu lt Performing Organization Address [facility] Co de Phone Number [facility] [address] [place] [address] * (ABNORMAL) HEPATIC FUNCTION PANEL (10/25/2024 9:27 AM EDT) [facility] Total Protein 6.4 6.4 - 8.3 gm/dL 10/25/2024 9:48 AM EDT [facility] Albumin 4.2 3.2 - 4.6 gm/dL 10/25/2024 9:48 AM EDT [facility] Bili Direct <0.2 0.0 - 0.3 mg/dL 10/25/2024 9:48 AM EDT [facility] Bili Total 0.4 0.2 - 1.4 mg/dL 10/25/2024 9:48 AM EDT [facility] AST 76(H) <=40 U/L 10/25/2024 9:48 AM EDT [facility] ALT 18 <=41 U/L 10/25/2024 9:48 AM EDT [facility] Alk Phos 71 40 - 129 U/L 10/25/2024 9:48 AM EDT [facility] Blood VENOUS BLOOD / Unknown Venipuncture / Unknown 10/25/2024 9:27 AM EDT 10/25/2024 9:31 AM EDT us Mart Rice MD CHEMISTRY ORDERABLES Final Resu lt Performing Organization Address City/[facility]/ZIP Co de Phone Number [facility] [address] [place] [address] * VA US LOWER EXTREMITY VENOUS LEFT (09/01/2024 12:37 PM EST) Anatomical Region Laterality Modality Vascular, Thigh, Leg Vascular Im aging 09/01/2024 12:1 6 PM EST Impressions 09/01/2024 12:59 PM EST Conclusions * No evidence of deep vein thrombosis identified in the left lower extremity. * No evidence of superficial vein thrombosis identified in the left lower extremity. * No evidence of thrombosis is noted in the contralateral right common femoral vein. Narrative Procedure Note Conor Hanson MD - 09/01/2024 IMPRESSION Conclusions * No evidence of deep vein thrombosis identified in the left lower extremity. * No evidence of superficial vein thrombosis identified in the leftlower extremity. * No evidence of thrombosis is noted in the contralateral right common femoral vein. Result [facility] Cesar Hernandez PA-C IMG VASCULAR ORDERABLES Final Result * CA ARTHROCENTESIS ASPIR&/INJ MAJOR JT/BURSA W/O US (08/27/2024 10:45 AM EST) Narrative [facility] - 08/27/2024 10:45 AM EST Cesar Hernandez PA-C 08/27/2024 11:53 AM Large Joint Injection/Arthrocentesis: L greater trochanteric bursa on 08/27/2024 10:45 AM Indications: pain Details: 22 G (Spinal needle) needle, lateral approach Medications: 40 mg triamcinolone acetonide 40 mg/mL; 2 mL BUPivacaine HCl 0.5 % (5 mg/mL) Outcome: tolerated well, no immediate complications Procedure, treatment alternatives, risks and benefits explained, specific risks discussed. Consent was given by the patient. Immediately prior to procedure a time out was called to verify the correct patient, procedure, equipment, desktop support manager and site/side marked as required. Patient was prepped and draped in the usual sterile fashion. Cesar Hernandez PA-C PROCEDURE/MINOR SURGICAL ORDE RABLES Final Result [facility]TH[facility] * XR HIP LEFT AP LATERAL W AP PELVIS (08/27/2024 10:31 AM EST) Only the most recent of3 resultswithin the time period is included. Narrative Brandon Feldman - 08/27/2024 10:31 AM EST Please see physician's note from office encounter for x-ray imaging result Result [facility] Cesar Hernandez PA-C IMG DIAGNOSTIC IMAGING ORDERA BLES Final Result * DERMATOPATHOLOGY TISSUE SEND OUT REQUEST (11/28/2023 1:22 PM EDT) Tissue us Kim Scales MD PATHOLOGY ORDERABLES Fin al Result [facility] DERMATOPATHOLOGY [address] [place] [address] * URINALYSIS (10/15/2023 1:07 PM EDT) Only the most recent of2 resultswithin the time period is included. UA Color Light Yellow 10/15/2023 7:11 PM EDT [facility] UA Appear Clear Clear 10/15/2023 7:11 PM EDT [facility] UA Glucose Negative Negative mg/dL 10/15/2023 7:11 PM EDT [facility] UA Ketones Negative Negative mg/dL 10/15/2023 7:11 PM EDT [facility] UA Blood Negative Negative 10/15/2023 7:11 PM EDT [facility] UA pH 5.5 5.0 - 8.0 pH 10/15/2023 7:11 PM EDT [facility] UA Protein Negative Negative mg/dL 10/15/2023 7:11 PM EDT [facility] UA Urobilinogen Normal <=1 mg/dL 7:11 PM EDT [facility] UA Bili Negative Negative 10/15/2023 7:11 PM EDT [facility] UA Nitrite Negative Negative 10/15/2023 7:11 PM EDT [facility] UA Leuk Est Negative Negative 10/15/2023 7:11 PM EDT [facility] UA Spec Grav 1.013 1.001 - 1.035 no units 10/15/2023 7:11 PM EDT [facility] Comment:Reference range gabriela d for random specimens only. Urine URINE SPECIMEN COLLECTION, CLEAN CATCH / Unknown 10/15/2023 1:07 PM EDT 10/15/2023 1:07 PM EDT us Bj Gramajo MD URINE ORDERABLES Final Re sult Performing Organization Address City/[facility]/ZIP Co de Phone Number [facility] [employer] [facility] [address] [place] [address], [place] [address] * SCANNED RHYTHM STRIPS (08/01/2023 1:41 PM EST) Anatomical Region Laterality Modality Other 08/01/2023 1:41 PM EST us Unknown Provider IMG ECG ORDERABLES Final Result * FL < 1 HOUR (07/31/2023 9:43 AM EST) Narrative [facility] - 07/31/2023 9:43 AM EST Fluoroscopy was performed. The radiologist was not in attendance. Images might be present or might not for this order. This dictation is being made for record keeping purposes. us Agapito Orta MD IMG FLUOROSCOPY ORDE RABLES Final Result Performing Organization Address [facility] Co de Phone Number [facility] * XR HIP INTRAOPERATIVE LEFT 2 VIEW (07/31/2023 9:42 AM EST) Anatomical Region Laterality Modality Hip Radio Fluoroscop y 07/31/2023 9:42 AM EST Impressions 07/31/2023 11:02 AM EST Satisfactory intraoperative imaging. - Note: Radiology results need to be interpreted within a comprehensive clinical context. If you have questions about the radiology report, please contact the office of the ordering clinician. Narrative 07/31/2023 11:02 AM EST XR HIP INTRAOPERATIVE LEFT 2 VIEW, 07/31/2023 9:42 AM CLINICAL HISTORY: -surgery COMPARISON: CT from 06/11/2023 PROCEDURE COMMENTS: 4 views of the hip obtained intraoperatively with portable equipment. FINDINGS: Intraoperative imaging shows satisfactory hardware positioning. No unexpected finding. Procedure Note Lauro Demarco MD - 07/31/2023 XR HIP INTRAOPERATIVE LEFT 2 VIEW, 07/31/2023 9:42 AM CLINICAL HISTORY: -surgery COMPARISON: CT from 06/11/2023 PROCEDURE COMMENTS: 4 views of the hip obtained intraoperatively withportable equipment. FINDINGS: Intraoperative imaging shows satisfactory hardware positioning.No unexpected finding. IMPRESSION: Satisfactory intraoperative imaging. - Note: Radiology results need to be interpreted within a comprehensiveclinical context. If you have questions about the radiology report, please contactthe office of the ordering clinician. Agapito Orta MD IMG DIAGNOSTIC IMAGI NG ORDERABLES Final Result * INTRAOP AIRWAY PLACEMENT (07/31/2023 7:35 AM EST) Narrative [facility] - 07/31/2023 7:35 AM EST Danna Mcginnis CRNA 07/31/2023 7:38 AM Intraop Airway Placement: Date/Time: 07/31/2023 7:35 AM Induction type: IV Mask size: Standard adult Pre-Oxygenation: Standard Mask ventilation: Not attempted Technique: Video laryngoscope Laryngoscope blade: Ambriz Grade view: III Airway type: ETT- cuffed Intubation assist devices: Stylet 14fr Airway location: Oral Device size: 7.5mm Secured at: 21 cm Secured by: Tape Measured from: Lips Placement verified: End tidal CO2 and Symmetric chest wall motion Condition: Unchanged and Atraumatic Insertion attempts: 1 Title: [employer] ENGINEER Lance Gonsalez DO CA ANESTHESIA Final Resul t Performing Organization Address City/[facility]/ZIP Co de Phone Number [facility] [address] [place] [id number] * BB HISTORY CHECK (07/11/2023 11:03 AM EST) BB HISTORY CHECK (1) Previous History OK 07/11/2023 12:12 PM EST [facility] Blood VENOUS BLOOD / Unknown Venipuncture / Unknown 07/11/2023 11:03 AM EST 07/11/2023 11:07 AM EST Agapito Orta MD BLOOD BANK ORDERABLE S Final Result Performing Organization Address City/[facility] Co de Phone Number [facility] [address] [place] [id number] * SURGERY DATE (07/11/2023 11:03 AM EST) Surgery Date (1) Complete 07/11/2023 12:13 PM EST [facility] Blood VENOUS BLOOD / Unknown Venipuncture / Unknown 07/11/2023 11:03 AM EST 07/11/2023 11:07 AM EST us Agapito Orta MD BLOOD BANK ORDERABLE S Final Result [facility] [place] [address] * ABORH (07/11/2023 11:03 AM EST) Pathologist [facility] ABORH Int O POS 07/11/2023 3:0 6 PM EST [facility] Blood VENOUS BLOOD / Unknown Venipuncture / Unknown 07/11/2023 11:03 AM EST 07/11/2023 11:07 AM EST us Agapito Orta MD BLOOD BANK ORDERABLE S Final Result Performing Organization Address City/[facility]/ZIP Co de Phone Number [facility] [place] [address] * ANTIBODY SCREEN IGG (07/11/2023 11:03 AM EST) Pathologist [facility] ABSC IgG Int Negative 07/11/2023 3:05 PM EST [facility] Blood VENOUS BLOOD / Unknown Venipuncture / Unknown 07/11/2023 11:03 AM EST 07/11/2023 11:07 AM EST us Agapito Orta MD BLOOD BANK ORDERABLE S Final Result Performing Organization Address City/[facility] Co de Phone Number [facility] [address] [address] * POCT EKG (06/13/2023 12:33 PM EST) Only the most recent of2 resultswithin the time period is included. 06/13/2023 12:3 3 PM EST Impressions [facility] - 06/13/2023 12:33 PM EST Sinus Rhythm No ischemic ST changes Dhiraj Wallace MD POINT OF CARE CARDIOLOG Y Final Result [facility] * CT LOWER EXTREMITY LEFT WO CONTRAST (06/11/2023 10:34 AM EST) Anatomical Region Laterality Modality Leg Computed Tomogra phy 06/11/2023 10:3 4 AM EST Impressions 06/11/2023 11:04 AM EST Advanced left hip osteoarthritis. Narrative 06/11/2023 11:[address] LOWER EXTREMITY LEFT WO CONTRAST, 06/11/2023 10:34 AM CLINICAL HISTORY: Left hip pain. COMPARISON: Left hip radiograph 05/29/2023 at [facility]. PROCEDURE COMMENTS: Multidetector noncontrast left hip CT performed with multiplanar reconstructions. Automated exposure control for dose reduction was used. FINDINGS: BONES/JOINTS: A dynamic hip screw is present in the left femur. Advanced degenerative changes of the left hip include marginal osteophyte formation and zycp-ao-mslq contact superiorly with pronounced subchondral cysts on both sides of the joint. There is broadening and loss of normal offset of the lateral femoral head-neck junction. The femoral head is slightly laterally positioned within the acetabular fossa. No acute fracture or subchondral collapse is noted. SOFT TISSUES: No soft tissue fluid collection. Sigmoid diverticulosis. Procedure Note Asher Chandra MD - 06/11/2023 CT LOWER EXTREMITY LEFT WO CONTRAST, 06/11/2023 10:34 AM CLINICAL HISTORY: Left hip pain. COMPARISON: Left hip radiograph 05/29/2023 at [facility]. PROCEDURE COMMENTS: Multidetector noncontrast left hip CT performed with multiplanar reconstructions. Automated exposure control for dose reductionwas used. FINDINGS: BONES/JOINTS: A dynamic hip screw is present in the left femur. Advanced degenerative changes of the left hip include marginal osteophyte formationand vyli-xn-qagf contact superiorly with pronounced subchondral cysts on bothsides of the joint. There is broadening and loss of normal offset of thelateral femoral head-neck junction. The femoral head is slightly laterallypositioned within the acetabular fossa. No acute fracture or subchondral collapse isnoted. SOFT TISSUES: No soft tissue fluid collection. Sigmoid diverticulosis. IMPRESSION: Advanced left hip osteoarthritis. Cesar CHRISTIAN-C IMG CT ORDERABLES Final Resul t * SEDIMENTATION RATE AUTOMATED (06/11/2023 9:25 AM EST) Pathologist [facility] Sed Rate 4 0 - 20 mm/hr 06/11/2023 4:31 PM EST [facility] Blood VENOUS BLOOD / Unknown Venipuncture / Unknown 06/11/2023 9:25 AM EST 06/11/2023 9:25 AM EST Cesar Hernandez PA-C HEMATOLOGY ORDERABLES Final R esult Performing Organization Address City/[facility]/ZIP Co de Phone Number [facility] [address] [place] [address] , [place] [address] * C-REACTIVE PROTEIN (06/11/2023 9:25 AM EST) Pathologist [facility] CRP <3.00 <=5.00 mg/L 06/11/2023 5:39 PM EST [facility] Blood VENOUS BLOOD / Unknown Venipuncture / Unknown 06/11/2023 9:25 AM EST 06/11/2023 9:25 AM EST [facility] CHEMISTRY ORDERABLES Final Re sult [facility] [address] [place] [address] , [place] [address] * XR HIP LEFT 4 VIEW (05/29/2023 2:57 PM EDT) Narrative Brandon Feldman - 05/29/2023 2:57 PM EDT Please see physician's note from office encounter for x-ray imaging result Cesar CHRISTIAN-C IMG DIAGNOSTIC IMAGING ORDERA BLES Final Result * SC US LOWER EXTREMITY VENOUS BILATERAL (04/12/2023 11:56 AM EDT) Anatomical Region Laterality Modality Vascular, Leg Vascular Imaging 04/12/2023 11:1 5 AM EDT Impressions 04/12/2023 1:11 PM EDT Conclusions * No evidence of deep vein thrombosis identified in the bilateral lower extremities. * No evidence of superficial thrombosis identified in the bilateral lower extremities. * No deep venous reflux is noted bilaterally. Narrative Procedure Note Ki Sanchez MD - 04/12/2023 IMPRESSION Conclusions * No evidence of deep vein thrombosis identified in the bilaterallower extremities. * No evidence of superficial thrombosis identified in the bilaterallower extremities. * No deep venous reflux is noted bilaterally. Cesar Aguayo MD IMG VASCULAR ORDERABLES Final Result * EC ECHOCARDIOGRAM COMPLETE W DOPPLER AND COLOR FLOW MAPPING (02/04/2023 9:22 AM EDT) Only the most recent of4 resultswithin the time period is included. Ejection Fraction 60-65% PYRAMIS MITRAL REGURGITATION mild PYRAMIS AORTIC STENOSIS mild PYRAMIS LV DIASTOLIC PLAX 4.6 cm PYRAMIS Anatomical Region Laterality Modality Electrocardiogra phy 02/04/2023 8:34 AM EDT Impressions 02/04/2023 7:02 PM EDT Conclusions * Left ventricular chamber dimension is normal. * Left ventricular function is normal with an estimated ejection fraction of 60-65%. * The left ventricular diastolic function is normal. * Left ventricular segmental wall motion is normal. * Right ventricular chamber dimension is mildly enlarged. * Right ventricular systolic function is normal. * Left atrial chamber dimension is mildly enlarged. * Right atrial chamber dimension is moderately enlarged. * There is trace aortic valve stenosis with a peak velocity of 205 cm/s, mean gradient of 9 mmHg, and aortic valve area of 1.83 cm2. There is a normal stroke volume index. * There is mild mitral valve regurgitation. * There is mild tricuspid valve regurgitation. * There is moderate pulmonic regurgitation. * The aortic root is mildly dilated, measuring 3.8 cm. Narrative Procedure Note Dhiraj Wallace MD - 02/04/2023 IMPRESSION Conclusions * Left ventricular chamber dimension is normal. * Left ventricular function is normal with an estimated ejectionfraction of 60-65%. * The left ventricular diastolic function is normal. * Left ventricular segmental wall motion is normal. * Right ventricular chamber dimension is mildly enlarged. * Right ventricular systolic function is normal. * Left atrial chamber dimension is mildly enlarged. * Right atrial chamber dimension is moderately enlarged. * There is trace aortic valve stenosis with a peak velocity of 205cm/s, mean gradient of 9 mmHg, and aortic valve area of 1.83 cm2. There is anormal stroke volume index. * There is mild mitral valve regurgitation. * There is mild tricuspid valve regurgitation. * There is moderate pulmonic regurgitation. * The aortic root is mildly dilated, measuring 3.8 cm. us Baljinder Caceres MD IMG ECHO ORDERABLES Final Result * CT CHEST HIGH RESOLUTION WO CONTRAST (12/28/2022 12:32 PM EDT) Anatomical Region Laterality Modality Chest Computed Tomogra phy 12/28/2022 12:3 2 PM EDT Impressions 12/28/2022 1:32 PM EDT No pattern of significant interstitial fibrosis or acute cardiopulmonary process. No suspicious pulmonary nodule. - Note: Radiology results need to be interpreted within a comprehensive clinical context. If you have questions about the radiology report, please contact the office of the ordering clinician. 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 COMPARISON: 04/24/2022 PROCEDURE COMMENTS: High-resolution CT chest per protocol. Multiplanar reconstructions. FINDINGS: No mediastinal or hilar mass lesion. Calcified mediastinal hilar lymph nodes consistent with old granulomatous disease, unchanged. Moderate to large hiatal hernia redemonstrated. No suspicious pulmonary nodules. Lung volumes within normal limits. No significant reticulation. No traction bronchiectasis or honeycombing. No generalized nodularity or pulmonary cyst formation. No groundglass opacities away from areas of fibrosis. No evidence of acute consolidation or air-trapping. Mediastinal and visceral pleura unremarkable. Tracheobronchial tree patent. Coronary artery calcification: Mild. Incidental: Visible abdominal viscera are unremarkable. Degenerative changes lower cervical spine, thoracolumbar spine, and T11 and L1 endplate compression deformities are stable. Procedure Note Les Vang MD - 12/28/2022 CT CHEST HIGH-RESOLUTION WITHOUT CONTRAST, 12/28/2022 12:32 PM CLINICAL HISTORY: E01-Bhnypjumy neoplasm of prostate (HCC)-ICD-10-CM R06.09-Other forms of lthojti-QAJ-88-CM R06.02-Shortness of emzpgy-KTT-37-CM R05.3-Chronic snamo-BHW-06-CM. COMPARISON: 04/24/2022 PROCEDURE COMMENTS: High-resolution CT chest per protocol. Multiplanar reconstructions. FINDINGS: No mediastinal or hilar mass lesion. Calcified mediastinal hilar lymphnodes consistent with old granulomatous disease, unchanged. Moderate to large hiatal hernia redemonstrated. No suspicious pulmonary nodules. Lung volumes within normal limits. No significant reticulation. Notraction bronchiectasis or honeycombing. No generalized nodularity or pulmonarycyst formation. No groundglass opacities away from areas of fibrosis. Noevidence of acute consolidation or air-trapping. Mediastinal and visceral pleura unremarkable. Tracheobronchial treepatent. Coronary artery calcification: Mild. Incidental: Visible abdominal viscera are unremarkable. Degenerativechanges lower cervical spine, thoracolumbar spine, and T11 and L1 endplatecompression deformities are stable. IMPRESSION: No pattern of significant interstitial fibrosis or acute cardiopulmonary process. No suspicious pulmonary nodule. - Note: Radiology results need to be interpreted within a comprehensiveclinical context. If you have questions about the radiology report, please contactthe office of the ordering clinician. Baljinder Caceres MD IMG CT ORDERABLES Final Result * RADIATION TREATMENT SUMMARY (11/22/2022 10:11 AM EDT) Course ID C1 ARIA Course Start Date 10/01/2022 9:35:20 AM [place] Primary Oncologist Walt GramajoA Session Number 26 ARIA Treatment Date_Time 11/22/2022 10:11:22 AM ARIA Treatment Elapsed Days 36 ARIA Fractions Treated 26 ARIA Reference Point ID Prostate ISO ARIA Dosage Given to Date in Gy 71.91100855 ARIA Session Dosage Given in Gy 2.85481522 ARIA Reference Point ID Prostate RP ARIA Dosage Given to Date in Gy 70.2 ARIA Session Dosage Given in Gy 2.7 ARIA Plan ID Prostate ARIA Plan Name Prostate ARIA Fractions Treated to Date 26 ARIA Prescribed Dose Per Fraction in Gy 2.7 ARIA Prescribed Dose in cGY 7,020 ARIA Site Being Treated Prostate-Pro state cT1c,cN0cM0 GS3+4 PSA7 ARIA 11/22/2022 10:1 1 AM EDT Bj Gramajo MD RADIATION ONCOLOGY ORDERA BLES Final Result [address] [place] [address] * RADIATION TREATMENT SUMMARY (11/21/2022 10:12 AM EDT) Course ID C1 ARIA Course Start Date 10/01/2022 9:35:20 AM LIS[place] Primary Oncologist Walt Gramajo Session Number 25 ARIA Treatment Date_Time 11/21/2022 10:12:48 AM ARIA Treatment Elapsed Days 35 ARIA Fractions Treated 25 ARIA Reference Point ID Prostate ISO ARIA Dosage Given to Date in Gy 68.3961298 ARIA Session Dosage Given in Gy 2.48921388 ARIA Reference Point ID Prostate RP ARIA Dosage Given to Date in Gy 67.5 ARIA Session Dosage Given in Gy 2.7 ARIA Plan ID Prostate ARIA Plan Name Prostate ARIA Fractions Treated to Date 25 ARIA Prescribed Dose Per Fraction in Gy 2.7 ARIA Prescribed Dose in cGY 7,020 ARIA Site Being Treated Prostate-Pro state cT1c,cN0cM0 GS3+4 PSA7 ARIA 11/21/2022 10:1 2 AM EDT Bj Gramajo MD RADIATION ONCOLOGY ORDERA BLES Final Result Performing Organization Address [facility]/ZIP Co de Phone Number [facility] [place] [address] * RADIATION TREATMENT SUMMARY (11/20/2022 11:10 AM EDT) Course ID C1 ARIA Course Start Date 10/01/2022 9:35:20 AM ARIA Primary Oncologist Walt GramajoA Session Number 24 ARIA Treatment Date_Time 11/20/2022 11:10:54 AM ARIA Treatment Elapsed Days 34 ARIA Fractions Treated 24 ARIA Reference Point ID Prostate ISO ARIA Dosage Given to Date in Gy 65.71276017 ARIA Session Dosage Given in Gy 2.56246862 ARIA Reference Point ID Prostate RP ARIA Dosage Given to Date in Gy 64.8 ARIA Session Dosage Given in Gy 2.7 ARIA Plan ID Prostate ARIA Plan Name Prostate ARIA Fractions Treated to Date 24 ARIA Prescribed Dose Per Fraction in Gy 2.7 ARIA Prescribed Dose in cGY 7,020 ARIA Site Being Treated Prostate-Pro state cT1c,cN0cM0 GS3+4 PSA7 ARIA 11/20/2022 11:1 0 AM EDT Bj Gramajo MD RADIATION ONCOLOGY ORDERA BLES Final Result Performing Organization Address [facility] Co de Phone Number BHARAT [facility] [place] [address] * RADIATION TREATMENT SUMMARY (11/19/2022 10:49 AM EDT) Course ID C1 ARIA Course Start Date 10/01/2022 9:35:20 AM LISSETA Primary Oncologist Walt Gramajo Session Number 23 ARIA Treatment Date_Time 11/19/2022 10:49:33 AM ARIA Treatment Elapsed Days 33 ARIA Fractions Treated 23 ARIA Reference Point ID Prostate ISO ARIA Dosage Given to Date in Gy 63.65561268 ARIA Session Dosage Given in Gy 2.16914323 ARIA Reference Point ID Prostate RP ARIA Dosage Given to Date in Gy 62.1 ARIA Session Dosage Given in Gy 2.7 ARIA Plan ID Prostate ARIA Plan Name Prostate ARIA Fractions Treated to Date 23 ARIA Prescribed Dose Per Fraction in Gy 2.7 ARIA Prescribed Dose in cGY 7,020 ARIA Site Being Treated Prostate-Pro state cT1c,cN0cM0 GS3+4 PSA7 ARIA 11/19/2022 10:4 9 AM EDT Bj Gramajo MD RADIATION ONCOLOGY ORDERA BLES Final Result [address] [place] [address] * RADIATION TREATMENT SUMMARY (11/16/2022 10:34 AM EDT) Course ID C1 ARIA Course Start Date 10/01/2022 9:35:20 AM LISSETA Primary Oncologist Walt Gramajo ARIRufus Session Number 22 ARIA Treatment Date_Time 11/16/2022 10:34:09 AM ARIA Treatment Elapsed Days 30 ARIA Fractions Treated 22 ARIA Reference Point ID Prostate ISO ARIA Dosage Given to Date in Gy 60.92530035 ARIA Session Dosage Given in Gy 2.71392840 ARIA Reference Point ID Prostate RP ARIA Dosage Given to Date in Gy 59.4 ARIA Session Dosage Given in Gy 2.7 ARIA Plan ID Prostate ARIA Plan Name Prostate ARIA Fractions Treated to Date 22 ARIA Prescribed Dose Per Fraction in Gy 2.7 ARIA Prescribed Dose in cGY 7,020 ARIA Site Being Treated Prostate-Pro state cT1c,cN0cM0 GS3+4 PSA7 ARIA 11/16/2022 10:3 4 AM EDT Bj Gramajo MD RADIATION ONCOLOGY ORDERA BLES Final Result Performing Organization Address City/[facility]/ZIP Co de Phone Number BHARAT [facility] [place] [address] * RADIATION TREATMENT SUMMARY (11/15/2022 10:02 AM EDT) Course ID C1 ARIA Course Start Date 10/01/2022 9:35:20 AM BHARAT Primary Oncologist Walt Gramajo Session Number 21 ARIA Treatment Date_Time 11/15/2022 10:02:46 AM ARIA Treatment Elapsed Days 29 ARIA Fractions Treated 21 ARIA Reference Point ID Prostate ISO ARIA Dosage Given to Date in Gy 57.98805145 ARIA Session Dosage Given in Gy 2.20137049 ARIA Reference Point ID Prostate RP ARIA Dosage Given to Date in Gy 56.7 ARIA Session Dosage Given in Gy 2.7 ARIA Plan ID Prostate ARIA Plan Name Prostate ARIA Fractions Treated to Date 21 ARIA Prescribed Dose Per Fraction in Gy 2.7 ARIA Prescribed Dose in cGY 7,020 ARIA Site Being Treated Prostate-Pro state cT1c,cN0cM0 GS3+4 PSA7 ARIA 11/15/2022 10:0 2 AM EDT us Bj Gramajo MD RADIATION ONCOLOGY ORDERA BLES Final Result [address] [place] [address] * RADIATION TREATMENT SUMMARY (11/14/2022 10:37 AM EDT) Course ID C1 ARIA Course Start Date 10/01/2022 9:35:20 AM BHARAT Primary Oncologist Walt Gramajo Session Number 20 ARIA Treatment Date_Time 11/14/2022 10:37:14 AM ARIA Treatment Elapsed Days 28 ARIA Fractions Treated 20 ARIA Reference Point ID Prostate ISO ARIA Dosage Given to Date in Gy 54.0205774 ARIA Session Dosage Given in Gy 2.03816968 ARIA Reference Point ID Prostate RP ARIA Dosage Given to Date in Gy 54 ARIA Session Dosage Given in Gy 2.7 ARIA Plan ID Prostate ARIA Plan Name Prostate ARIA Fractions Treated to Date 20 ARIA Prescribed Dose Per Fraction in Gy 2.7 ARIA Prescribed Dose in cGY 7,020 ARIA Site Being Treated Prostate-Pro state cT1c,cN0cM0 GS3+4 PSA7 ARIA 11/14/2022 10:3 7 AM EDT Bj Gramajo MD RADIATION ONCOLOGY ORDERA BLES Final Result Performing Organization Address [facility]/ZIP Co de Phone Number [facility] [address] [place] [address] [place] [address] * RADIATION TREATMENT SUMMARY (11/13/2022 11:11 AM EDT) Course ID C1 ARIA Course Start Date 10/01/2022 9:35:20 AM ARIA Primary Oncologist Walt GramajoA Session Number 19 ARIA Treatment Date_Time 11/13/2022 11:11:33 AM ARIA Treatment Elapsed Days 27 ARIA Fractions Treated 19 ARIA Reference Point ID Prostate ISO ARIA Dosage Given to Date in Gy 52.93987351 ARIA Session Dosage Given in Gy 2.22107455 ARIA Reference Point ID Prostate RP ARIA Dosage Given to Date in Gy 51.3 ARIA Session Dosage Given in Gy 2.7 ARIA Plan ID Prostate ARIA Plan Name Prostate ARIA Fractions Treated to Date 19 ARIA Prescribed Dose Per Fraction in Gy 2.7 ARIA Prescribed Dose in cGY 7,020 ARIA Site Being Treated Prostate-Pro state cT1c,cN0cM0 GS3+4 PSA7 ARIA 11/13/2022 11:1 1 AM EDT Bj Gramajo MD RADIATION ONCOLOGY ORDERA BLES Final Result Performing Organization Address [facility] Co de Phone Number BHARAT [facility] [place] [address] * RADIATION TREATMENT SUMMARY (11/12/2022 10:07 AM EDT) Course ID C1 ARIA Course Start Date 10/01/2022 9:35:20 AM LISSET[place] Primary Oncologist Walt Gramajo Session Number 18 ARIA Treatment Date_Time 11/12/2022 10:07:48 AM ARIA Treatment Elapsed Days 26 ARIA Fractions Treated 18 ARIA Reference Point ID Prostate ISO ARIA Dosage Given to Date in Gy 49.81648664 ARIA Session Dosage Given in Gy 2.62435045 ARIA Reference Point ID Prostate RP ARIA Dosage Given to Date in Gy 48.6 ARIA Session Dosage Given in Gy 2.7 ARIA Plan ID Prostate ARIA Plan Name Prostate ARIA Fractions Treated to Date 18 ARIA Prescribed Dose Per Fraction in Gy 2.7 ARIA Prescribed Dose in cGY 7,020 ARIA Site Being Treated Prostate-Pro state cT1c,cN0cM0 GS3+4 PSA7 ARIA 11/12/2022 10:0 7 AM EDT Bj Gramajo MD RADIATION ONCOLOGY ORDERA BLES Final Result BH[facility]AT [facility] [place] [address] * RADIATION TREATMENT SUMMARY (11/09/2022 10:07 AM EDT) Course ID C1 ARIA Course Start Date 10/01/2022 9:35:20 AM BHARAT Primary Oncologist Walt Gramajo Session Number 17 ARIA Treatment Date_Time 11/09/2022 10:07:46 AM ARIA Treatment Elapsed Days 23 ARIA Fractions Treated 17 ARIA Reference Point ID Prostate ISO ARIA Dosage Given to Date in Gy 46.85217552 ARIA Session Dosage Given in Gy 2.34714559 ARIA Reference Point ID Prostate RP ARIA Dosage Given to Date in Gy 45.9 ARIA Session Dosage Given in Gy 2.7 ARIA Plan ID Prostate ARIA Plan Name Prostate ARIA Fractions Treated to Date 17 ARIA Prescribed Dose Per Fraction in Gy 2.7 ARIA Prescribed Dose in cGY 7,020 ARIA Site Being Treated Prostate-Pro state cT1c,cN0cM0 GS3+4 PSA7 ARIA 11/09/2022 10:0 7 AM EDT Bj Gramajo MD RADIATION ONCOLOGY ORDERA BLES Final Result BHARAT [facility] [place] [address] * RADIATION TREATMENT SUMMARY (11/07/2022 10:03 AM EDT) Course ID C1 ARIA Course Start Date 10/01/2022 9:35:20 AM ARIA Primary Oncologist Walt Gramajo Session Number 16 ARIA Treatment Date_Time 11/07/2022 10:03:52 AM ARIA Treatment Elapsed Days 21 ARIA Fractions Treated 16 ARIA Reference Point ID Prostate ISO ARIA Dosage Given to Date in Gy 43.71595500 ARIA Session Dosage Given in Gy 2.22352172 ARIA Reference Point ID Prostate RP ARIA Dosage Given to Date in Gy 43.2 ARIA Session Dosage Given in Gy 2.7 ARIA Plan ID Prostate ARIA Plan Name Prostate ARIA Fractions Treated to Date 16 ARIA Prescribed Dose Per Fraction in Gy 2.7 ARIA Prescribed Dose in cGY 7,020 ARIA Site Being Treated Prostate-Pro state cT1c,cN0cM0 GS3+4 PSA7 ARIA 11/07/2022 10:0 3 AM EDT Bj Gramajo MD RADIATION ONCOLOGY ORDERA BLES Final Result Performing Organization Address City/State/[facility] Co de Phone Number [address] [place], [place] [id number] * RADIATION TREATMENT SUMMARY (11/06/2022 10:29 AM EDT) Course ID C1 ARIA Course Start Date 10/01/2022 9:35:20 AM BHARAT Primary Oncologist Walt Gramajo Session Number 15 ARIA Treatment Date_Time 11/06/2022 10:29:15 AM ARIA Treatment Elapsed Days 20 ARIA Fractions Treated 15 ARIA Reference Point ID Prostate ISO ARIA Dosage Given to Date in Gy 41.8379611 ARIA Session Dosage Given in Gy 2.16122103 ARIA Reference Point ID Prostate RP ARIA Dosage Given to Date in Gy 40.5 ARIA Session Dosage Given in Gy 2.7 ARIA Plan ID Prostate ARIA Plan Name Prostate ARIA Fractions Treated to Date 15 ARIA Prescribed Dose Per Fraction in Gy 2.7 ARIA Prescribed Dose in cGY 7,020 ARIA Site Being Treated Prostate-Pro state cT1c,cN0cM0 GS3+4 PSA7 ARIA 11/06/2022 10:2 9 AM EDT Bj Gramajo MD RADIATION ONCOLOGY ORDERA BLES Final Result Performing Organization Address [facility]/ZIP Co de Phone Number BHARAT [facility] [place] [address] * RADIATION TREATMENT SUMMARY (11/05/2022 10:10 AM EDT) Course ID C1 ARIA Course Start Date 10/01/2022 9:35:20 AM ARIA Primary Oncologist Walt GramajoA Session Number 14 ARIA Treatment Date_Time 11/05/2022 10:10:40 AM ARIA Treatment Elapsed Days 19 ARIA Fractions Treated 14 ARIA Reference Point ID Prostate ISO ARIA Dosage Given to Date in Gy 38.51455178 ARIA Session Dosage Given in Gy 2.75871680 ARIA Reference Point ID Prostate RP ARIA Dosage Given to Date in Gy 37.8 ARIA Session Dosage Given in Gy 2.7 ARIA Plan ID Prostate ARIA Plan Name Prostate ARIA Fractions Treated to Date 14 ARIA Prescribed Dose Per Fraction in Gy 2.7 ARIA Prescribed Dose in cGY 7,020 ARIA Site Being Treated Prostate-Pro state cT1c,cN0cM0 GS3+4 PSA7 ARIA 11/05/2022 10:1 0 AM EDT Bj Gramajo MD RADIATION ONCOLOGY ORDERA BLES Final Result Performing Organization Address [facility] Co de Phone Number BHARAT [facility] [place] [address] * RADIATION TREATMENT SUMMARY (11/02/2022 10:17 AM EDT) Course ID C1 ARIA Course Start Date 10/01/2022 9:35:20 AM LISSETA Primary Oncologist Walt Gramajo Session Number 13 ARIA Treatment Date_Time 11/02/2022 10:17:04 AM ARIA Treatment Elapsed Days 16 ARIA Fractions Treated 13 ARIA Reference Point ID Prostate ISO ARIA Dosage Given to Date in Gy 35.91614311 ARIA Session Dosage Given in Gy 2.08469282 ARIA Reference Point ID Prostate RP ARIA Dosage Given to Date in Gy 35.1 ARIA Session Dosage Given in Gy 2.7 ARIA Plan ID Prostate ARIA Plan Name Prostate ARIA Fractions Treated to Date 13 ARIA Prescribed Dose Per Fraction in Gy 2.7 ARIA Prescribed Dose in cGY 7,020 ARIA Site Being Treated Prostate-Pro state cT1c,cN0cM0 GS3+4 PSA7 ARIA 11/02/2022 10:1 7 AM EDT Bj Gramajo MD RADIATION ONCOLOGY ORDERA BLES Final Result BHARAT [facility] [place] [address] * RADIATION TREATMENT SUMMARY (11/01/2022 10:07 AM EDT) Course ID C1 ARIA Course Start Date 10/01/2022 9:35:20 AM BHARAT Primary Oncologist Walt Gramajo Session Number 12 ARIA Treatment Date_Time 11/01/2022 10:07:43 AM ARIA Treatment Elapsed Days 15 ARIA Fractions Treated 12 ARIA Reference Point ID Prostate ISO ARIA Dosage Given to Date in Gy 32.73149847 ARIA Session Dosage Given in Gy 2.11663606 ARIA Reference Point ID Prostate RP ARIA Dosage Given to Date in Gy 32.4 ARIA Session Dosage Given in Gy 2.7 ARIA Plan ID Prostate ARIA Plan Name Prostate ARIA Fractions Treated to Date 12 ARIA Prescribed Dose Per Fraction in Gy 2.7 ARIA Prescribed Dose in cGY 7,020 ARIA Site Being Treated Prostate-Pro state cT1c,cN0cM0 GS3+4 PSA7 ARIA 11/01/2022 10:0 7 AM EDT us Bj Gramajo MD RADIATION ONCOLOGY ORDERA BLES Final Result Performing Organization Address City/[facility]/ZIP Co de Phone Number BHARAT [facility] [place] [address] * RADIATION TREATMENT SUMMARY (10/31/2022 10:12 AM EDT) Course ID C1 ARIA Course Start Date 10/01/2022 9:35:20 AM ARIA Primary Oncologist Walt Gramajo Session Number 11 ARIA Treatment Date_Time 10/31/2022 10:12:05 AM ARIA Treatment Elapsed Days 14 ARIA Fractions Treated 11 ARIA Reference Point ID Prostate ISO ARIA Dosage Given to Date in Gy 30.93212743 ARIA Session Dosage Given in Gy 2.89954155 ARIA Reference Point ID Prostate RP ARIA Dosage Given to Date in Gy 29.7 ARIA Session Dosage Given in Gy 2.7 ARIA Plan ID Prostate ARIA Plan Name Prostate ARIA Fractions Treated to Date 11 ARIA Prescribed Dose Per Fraction in Gy 2.7 ARIA Prescribed Dose in cGY 7,020 ARIA Site Being Treated Prostate-Pro state cT1c,cN0cM0 GS3+4 PSA7 ARIA 10/31/2022 10:1 2 AM EDT Bj Gramajo MD RADIATION ONCOLOGY ORDERA BLES Final Result Performing Organization Address City/State/[facility] Co de Phone Number [address] [place] [address] * RADIATION TREATMENT SUMMARY (10/30/2022 10:08 AM EDT) Course ID C1 ARIA Course Start Date 10/01/2022 9:35:20 AM BHARAT Primary Oncologist Walt Gramajo Session Number 10 ARIA Treatment Date_Time 10/30/2022 10:08:01 AM ARIA Treatment Elapsed Days 13 ARIA Fractions Treated 10 ARIA Reference Point ID Prostate ISO ARIA Dosage Given to Date in Gy 27.0592371 ARIA Session Dosage Given in Gy 2.02123202 ARIA Reference Point ID Prostate RP ARIA Dosage Given to Date in Gy 27 ARIA Session Dosage Given in Gy 2.7 ARIA Plan ID Prostate ARIA Plan Name Prostate ARIA Fractions Treated to Date 10 ARIA Prescribed Dose Per Fraction in Gy 2.7 ARIA Prescribed Dose in cGY 7,020 ARIA Site Being Treated Prostate-Pro state cT1c,cN0cM0 GS3+4 PSA7 ARIA 10/30/2022 10:0 8 AM EDT us Bj Gramajo MD RADIATION ONCOLOGY ORDERA BLES Final Result Performing Organization Address [facility]/ZIP Co de Phone Number BHARAT [facility] [place] [address] * RADIATION TREATMENT SUMMARY (10/29/2022 10:11 AM EDT) Course ID C1 ARIA Course Start Date 10/01/2022 9:35:20 AM ARIA Primary Oncologist Walt GramajoA Session Number 9 ARIA Treatment Date_Time 10/29/2022 10:11:29 AM ARIA Treatment Elapsed Days 12 ARIA Fractions Treated 9 ARIA Reference Point ID Prostate ISO ARIA Dosage Given to Date in Gy 24.23212751 ARIA Session Dosage Given in Gy 2.39391858 ARIA Reference Point ID Prostate RP ARIA Dosage Given to Date in Gy 24.3 ARIA Session Dosage Given in Gy 2.7 ARIA Plan ID Prostate ARIA Plan Name Prostate ARIA Fractions Treated to Date 9 ARIA Prescribed Dose Per Fraction in Gy 2.7 ARIA Prescribed Dose in cGY 7,020 ARIA Site Being Treated Prostate-Pro state cT1c,cN0cM0 GS3+4 PSA7 ARIA 10/29/2022 10:1 1 AM EDT Bj Gramajo MD RADIATION ONCOLOGY ORDERA BLES Final Result Performing Organization Address [facility] Co de Phone Number BHARAT [facility] [place] [address] * RADIATION TREATMENT SUMMARY (10/26/2022 10:12 AM EDT) Course ID C1 ARIA Course Start Date 10/01/2022 9:35:20 AM BHARAT Primary Oncologist Walt Gramajo Session Number 8 ARIA Treatment Date_Time 10/26/2022 10:12:42 AM ARIA Treatment Elapsed Days 9 ARIA Fractions Treated 8 ARIA Reference Point ID Prostate ISO ARIA Dosage Given to Date in Gy 21.86817742 ARIA Session Dosage Given in Gy 2.18246419 ARIA Reference Point ID Prostate RP ARIA Dosage Given to Date in Gy 21.6 ARIA Session Dosage Given in Gy 2.7 ARIA Plan ID Prostate ARIA Plan Name Prostate ARIA Fractions Treated to Date 8 ARIA Prescribed Dose Per Fraction in Gy 2.7 ARIA Prescribed Dose in cGY 7,020 ARIA Site Being Treated Prostate-Pro state cT1c,cN0cM0 GS3+4 PSA7 ARIA 10/26/2022 10:1 2 AM EDT Bj Gramajo MD RADIATION ONCOLOGY ORDERA BLES Final Result Performing Organization Address City/[facility] Co de Phone Number [address] [place] [address] * RADIATION TREATMENT SUMMARY (10/25/2022 11:30 AM EDT) Course ID C1 ARIA Course Start Date 10/01/2022 9:35:20 AM BHARAT Primary Oncologist Walt Gramajo Session Number 7 ARIA Treatment Date_Time 10/25/2022 11:30:12 AM ARIA Treatment Elapsed Days 8 ARIA Fractions Treated 7 ARIA Reference Point ID Prostate ISO ARIA Dosage Given to Date in Gy 19.30867220 ARIA Session Dosage Given in Gy 2.15908631 ARIA Reference Point ID Prostate RP ARIA Dosage Given to Date in Gy 18.9 ARIA Session Dosage Given in Gy 2.7 ARIA Plan ID Prostate ARIA Plan Name Prostate ARIA Fractions Treated to Date 7 ARIA Prescribed Dose Per Fraction in Gy 2.7 ARIA Prescribed Dose in cGY 7,020 ARIA Site Being Treated Prostate-Pro state cT1c,cN0cM0 GS3+4 PSA7 ARIA 10/25/2022 11:3 0 AM EDT Bj Gramajo MD RADIATION ONCOLOGY ORDERA BLES Final Result Performing Organization Address City/[facility] Co de Phone Number [facility] [place] [address] * RADIATION TREATMENT SUMMARY (10/24/2022 10:21 AM EDT) Course ID C1 ARIA Course Start Date 10/01/2022 9:35:20 AM ARIA Primary Oncologist Walt Gramajo Session Number 6 ARIA Treatment Date_Time 10/24/2022 10:21:29 AM ARIA Treatment Elapsed Days 7 ARIA Fractions Treated 6 ARIA Reference Point ID Prostate ISO ARIA Dosage Given to Date in Gy 16.07104450 ARIA Session Dosage Given in Gy 2.22913550 ARIA Reference Point ID Prostate RP ARIA Dosage Given to Date in Gy 16.2 ARIA Session Dosage Given in Gy 2.7 ARIA Plan ID Prostate ARIA Plan Name Prostate ARIA Fractions Treated to Date 6 ARIA Prescribed Dose Per Fraction in Gy 2.7 ARIA Prescribed Dose in cGY 7,020 ARIA Site Being Treated Prostate-Pro state cT1c,cN0cM0 GS3+4 PSA7 ARIA 10/24/2022 10:2 1 AM EDT Bj Gramajo MD RADIATION ONCOLOGY ORDERA BLES Final Result Performing Organization Address City/State/[facility] Co de Phone Number [address] [place], [place] [id number] * RADIATION TREATMENT SUMMARY (10/23/2022 11:07 AM EDT) Course ID C1 ARIA Course Start Date 10/01/2022 9:35:20 AM BHARAT Primary Oncologist Walt Gramajo Session Number 5 ARIA Treatment Date_Time 10/23/2022 11:07:20 AM ARIA Treatment Elapsed Days 6 ARIA Fractions Treated 5 ARIA Reference Point ID Prostate ISO ARIA Dosage Given to Date in Gy 13.8667792 ARIA Session Dosage Given in Gy 2.94199666 ARIA Reference Point ID Prostate RP ARIA Dosage Given to Date in Gy 13.5 ARIA Session Dosage Given in Gy 2.7 ARIA Plan ID Prostate ARIA Plan Name Prostate ARIA Fractions Treated to Date 5 ARIA Prescribed Dose Per Fraction in Gy 2.7 ARIA Prescribed Dose in cGY 7,020 ARIA Site Being Treated Prostate-Pro state cT1c,cN0cM0 GS3+4 PSA7 ARIA 10/23/2022 11:0 7 AM EDT us Bj Gramajo MD RADIATION ONCOLOGY ORDERA BLES Final Result Performing Organization Address [facility]/ZIP Co de Phone Number [facility] [address] [place] [address] [place] [address] * RADIATION TREATMENT SUMMARY (10/22/2022 12:23 PM EDT) Course ID C1 ARIA Course Start Date 10/01/2022 9:35:20 AM ARIA Primary Oncologist Walt Gramajo Session Number 4 ARIA Treatment Date_Time 10/22/2022 12:23:14 PM ARIA Treatment Elapsed Days 5 ARIA Fractions Treated 4 ARIA Reference Point ID Prostate ISO ARIA Dosage Given to Date in Gy 10.09646167 ARIA Session Dosage Given in Gy 2.56486182 ARIA Reference Point ID Prostate RP ARIA Dosage Given to Date in Gy 10.8 ARIA Session Dosage Given in Gy 2.7 ARIA Plan ID Prostate ARIA Plan Name Prostate ARIA Fractions Treated to Date 4 ARIA Prescribed Dose Per Fraction in Gy 2.7 ARIA Prescribed Dose in cGY 7,020 ARIA Site Being Treated Prostate-Pro state cT1c,cN0cM0 GS3+4 PSA7 ARIA 10/22/2022 12:2 3 PM EDT Bj Gramajo MD RADIATION ONCOLOGY ORDERA BLES Final Result Performing Organization Address [facility] Co de Phone Number [facility] [place] [address] * RADIATION TREATMENT SUMMARY (10/19/2022 11:38 AM EDT) Course ID C1 ARIA Course Start Date 10/01/2022 9:35:20 AM BHARAT Primary Oncologist Walt Gramajo Session Number 3 ARIA Treatment Date_Time 10/19/2022 11:38:01 AM ARIA Treatment Elapsed Days 2 ARIA Fractions Treated 3 ARIA Reference Point ID Prostate ISO ARIA Dosage Given to Date in Gy 8.38707484 ARIA Session Dosage Given in Gy 2.80303483 ARIA Reference Point ID Prostate RP ARIA Dosage Given to Date in Gy 8.1 ARIA Session Dosage Given in Gy 2.7 ARIA Plan ID Prostate ARIA Plan Name Prostate ARIA Fractions Treated to Date 3 ARIA Prescribed Dose Per Fraction in Gy 2.7 ARIA Prescribed Dose in cGY 7,020 ARIA Site Being Treated Prostate-Pro state cT1c,cN0cM0 GS3+4 PSA7 ARIA 10/19/2022 11:3 8 AM EDT Bj Gramajo MD RADIATION ONCOLOGY ORDERA BLES Final Result [address] [place] [address] * RADIATION TREATMENT SUMMARY (10/18/2022 12:04 PM EDT) Course ID C1 ARIA Course Start Date 10/01/2022 9:35:20 AM BHARAT Primary Oncologist Walt Gramajo Session Number 2 ARIA Treatment Date_Time 10/18/2022 12:04:59 PM ARIA Treatment Elapsed Days 1 ARIA Fractions Treated 2 ARIA Reference Point ID Prostate ISO ARIA Dosage Given to Date in Gy 5.95728147 ARIA Session Dosage Given in Gy 2.93071836 ARIA Reference Point ID Prostate RP ARIA Dosage Given to Date in Gy 5.4 ARIA Session Dosage Given in Gy 2.7 ARIA Plan ID Prostate ARIA Plan Name Prostate ARIA Fractions Treated to Date 2 ARIA Prescribed Dose Per Fraction in Gy 2.7 ARIA Prescribed Dose in cGY 7,020 ARIA Site Being Treated Prostate-Pro state cT1c,cN0cM0 GS3+4 PSA7 ARIA 10/18/2022 12:0 4 PM EDT Bj Gramajo MD RADIATION ONCOLOGY ORDERA BLES Final Result Performing Organization Address City/[facility]/ZIP Co de Phone Number [facility] [place] [address] * RADIATION TREATMENT SUMMARY (10/17/2022 11:51 AM EDT) Course ID C1 ARIA Course Start Date 10/01/2022 9:35:20 AM ARIA Primary Oncologist Walt Gramajo Session Number 1 ARIA Treatment Date_Time 10/17/2022 11:51:50 AM ARIA Treatment Elapsed Days 0 ARIA Fractions Treated 1 ARIA Reference Point ID Prostate ISO ARIA Dosage Given to Date in Gy [id number] ARIA Session Dosage Given in Gy [id number] ARIA Reference Point ID Prostate RP ARIA Dosage Given to Date in Gy 2.7 ARIA Session Dosage Given in Gy 2.7 ARIA Plan ID Prostate ARIA Plan Name Prostate ARIA Fractions Treated to Date 1 ARIA Prescribed Dose Per Fraction in Gy 2.7 ARIA Prescribed Dose in cGY 7,020 ARIA Site Being Treated Prostate-Pro state cT1c,cN0cM0 GS3+4 PSA7 ARIA 10/17/2022 11:5 1 AM EDT us Bj Gramajo MD RADIATION ONCOLOGY ORDERA BLES Final Result Performing Organization Address City/State/[facility] Phone Number [address] [place] [address] * CT PELVIS RADIATION THERAPY PLANNING WO CONTRAST (10/10/2022 10:48 AM EDT) Anatomical Region Laterality Modality Pelvis Computed Tomogra phy 10/10/2022 10:4 8 AM EDT Impressions 10/10/2022 2:23 PM EDT Technically adequate CT scanning for radiation planning purposes. - Note: Radiology results need to be interpreted within a comprehensive clinical context. If you have questions about the radiology report, please contact the office of the ordering clinician. Narrative 10/10/2022 2:[address] PELVIS RADIATION THERAPY PLANNING WO CONTRAST, 10/10/2022 10:48 AM CLINICAL HISTORY: J56-Hulwdjuop neoplasm of prostate (HCC)-ICD-10-CM. COMPARISON: 08/10/2022 PROCEDURE COMMENTS: Multi-detector CT for radiation planning purposes. No contrast given. FINDINGS: Routine CT for radiation planning purposes. Positioning per protocol and XRT requirements. Markers placed. The scan range and coverage area appear satisfactory. Redemonstration of previously identified pathology. No significant new lesion. Procedure Note Nikos Benedict MD - 10/10/2022 CT PELVIS RADIATION THERAPY PLANNING WO CONTRAST, 10/10/2022 10:48 AM CLINICAL HISTORY: G84-Cleznunqf neoplasm of prostate (HCC)-ICD-10-CM. COMPARISON: 08/10/2022 PROCEDURE COMMENTS: Multi-detector CT for radiation planning purposes.No contrast given. FINDINGS: Routine CT for radiation planning purposes. Positioning perprotocol and XRT requirements. Markers placed. The scan range and coverage areaappear satisfactory. Redemonstration of previously identified pathology. No significant newlesion. IMPRESSION: Technically adequate CT scanning for radiation planning purposes. - Note: Radiology results need to be interpreted within a comprehensiveclinical context. If you have questions about the radiology report, please contactthe office of the ordering clinician. us Bj Gramajo MD IM CT ORDERABLES Final R esult * (ABNORMAL) SEP URINALYSIS POC (09/20/2022 8:26 AM EST) Only the most recent of2 resultswithin the time period is included. UA Color POC Yellow Color 09/20/2022 8:29 AM EST [facility] UA Appear POC Clear Clear 09/20/2022 8:29 AM EST [facility] UA Gluc POC Negative Negative mg/dL 09/20/2022 8:29 AM EST [facility] UA Bili POC Negative Negative 09/20/2022 8:29 AM EST [facility] UA Ketones POC Negative Negative mg/dL 09/20/2022 8:29 AM EST [facility] UA SG POC 1.020 1.001 - 1.035 no units 09/20/2022 8:29 AM EST [facility] UA Blood POC Small(A) Negative 09/20/2022 8:29 AM EST [facility] UA pH POC 5.5 5.0 - 8.0 pH 09/20/2022 8:29 AM EST [facility] UA Protein POC Negative Negative mg/dL 09/20/2022 8:29 AM EST [facility] UA Urobilinogen POC 0.2 0.2, 1.0 09/20/2022 8:29 AM EST [facility] UA Nitrite POC Negative Negative 09/20/2022 8:29 AM EST [facility] UA Leuk Est POC Negative Negative 3 8:29 AM EST [facility] Urine URINE SPECIMEN COLLECTION / Unknown 09/20/2022 8:26 AM EST 09/20/2022 8:29 AM EST Zurdo Corley MD POINT OF CARE TEST ORDERABLES Fi nal Result Performing Organization Address City/[facility]/ZIP Co de Phone Number [facility] [address] [place] [address] * INTRAOP AIRWAY PLACEMENT (09/10/2022 12:56 PM EST) Narrative [facility] - 09/10/2022 12:56 PM EST Elena Gray CRNA 09/10/2022 12:56 PM Intraop Airway Placement: Date/Time: 09/10/2022 12:56 PM Airway type: Nasal cannula salter Gabriel Jefferson MD CA ANESTHESIA Final Res ult Performing Organization Address City/[facility] Co de Phone Number [facility] [address] [place] [address] * PATHOLOGY TISSUE REQUEST (09/10/2022 12:55 PM EST) CASE REPORT Surgical Pathology Case: [id number] Authorizing Provider: Zurdo Corley MD Collected: 09/10/2022 1255 Ordering Location: [facility] Received: 09/10/2022 194 Pathologist: Dillon Art MD Specimens: A) - Prostate, region of interest B) - Prostate, left base C) - Prostate, left mid D) - Prostate, left apex E) - Prostate, right base F) - Prostate, right mid G) - Prostate, right apex 3 1:18 PM EST [facility] FINAL DIAGNOSIS A) Prostate, Needle Core Biopsy, Region of Interest: - Prostatic Adenocarcinoma, Howe Score 7 (3+4), Grade Group 2. - 2 of 2 Cores and 32% (8 mm of 25 mm), 30% pattern 4, no Pattern 5. B) Prostate, Needle Core Biopsy, Left Base: - Prostatic Adenocarcinoma, Howe Score 6 (3+3), Grade Group 1. - 1 of 2 Cores and 8% (2 mm of 24 mm), No pattern 4, or Pattern 5. C) Prostate, Needle Core Biopsy, Left Mid: - Prostatic Adenocarcinoma, Ted Score 7 (3+4), Grade Group 2. - 2 of 2 Cores and 39% (11 mm of 28 mm), 30% pattern 4, No Pattern 5. D) Prostate, Needle Core Biopsy, Left [place]: - Prostatic Adenocarcinoma, Howe Score 6 (3+3), Grade Group 1. - 1 of 2 Cores and 19% (4 mm of 21 mm), No pattern 4, or Pattern 5. E) Prostate, Needle Core Biopsy, Right Base: - Benign Prostate Stromal and Glandular Tissue. F) Prostate, Needle Core Biopsy, Right Mid: - Prostatic Adenocarcinoma, Howe Score 6 (3+3), Grade Group 1. - 2 of 2 Cores and 7% (2 mm of 27 mm), No pattern 4, or Pattern 5. G) Prostate, Needle Core Biopsy, Right [place]: - Prostatic Adenocarcinoma, Ted Score 6 (3+3), Grade Group 1. - 2 of 2 Cores and 43% (9 mm of 21 mm), No pattern 4, or Pattern 5. - Focal Perineural Invasion. 3 1:18 PM [facility] at 1318 EST COMMENT CANCER CASE SUMMARY: - Highest Howe score: 7 (3+4); ISUP Grade Group 2 - Number cores involved: 10 - Number cores submitted: 14 - Longest Length: 11 mm - Highest % Involved: 43 % - Bilateral: Yes - Perineural invasion: Yes - Extraprostatic extension: No 3 1:18 PM [facility] GROSS DESCRIPTION A. Received in formalin in a container, labeled with the patient's name, hospital number, and region of interest , are two reeves-pink, soft tissue cores, 1.1-1.4 cm in length x 0.1 cm in diameter. Entirely submitted in one cassette. ZN 09/11/2022 11:25 AM B. Received in formalin in a container, labeled with the patient's name, hospital number, and left base , are two reeves-pink, soft tissue cores, 0.8-1.6 cm in length x 0.1 cm in diameter. Entirely submitted in one cassette. 09/11/2022 11:25 AM C. Received in formalin in a container, labeled with the patient's name, hospital number, and left mid , are two reeves-pink, soft tissue cores, 1.3-1.5 cm in length x 0.1 cm in diameter. Entirely submitted in one cassette. 09/11/2022 11:25 AM D. Received in formalin in a container, labeled with the patient's name, hospital number, and left apex , are two reeves-pink, soft tissue cores, 0.7-1.4 cm in length x 0.1 cm in diameter. Entirely submitted in one cassette. ZN 09/11/2022 11:25 AM E. Received in formalin in a container, labeled with the patient's name, hospital number, and right base , are two reeves-pink, soft tissue cores, 0.7-1.5 cm in length x 0.1 cm in diameter. Entirely submitted in one cassette. ZN 09/11/2022 11:25 AM F. Received in formalin in a container, labeled with the patient's name, hospital number, and right mid , are two reeves-pink, soft tissue cores, 1.3-1.4 cm in length x 0.1 cm in diameter. Entirely submitted in one cassette. 09/11/2022 11:25 AM G. Received in formalin in a container, labeled with the patient's name, hospital number, and right apex , are two reeves-pink, soft tissue cores, 0.9-1.2 cm in length x 0.1 cm in diameter. Entirely submitted in one cassette. ZN 09/11/2022 11:25 AM 1:18 PM [facility] MICROSCOPIC DESCRIPTION Microscopic examination, including immunohistochemistry to better characterize the acinar proliferations and illuminate the extent of possible tumor, is performed and the findings corroborate the diagnosis. All controls show appropriate reactivity. 3 1:18 PM [facility] EMBEDDED IMAGES 1:18 PM [facility] Tissue SPECIMEN FROM PROSTATE / Unknown 09/10/2022 12:55 PM EST 09/10/2022 7:40 PM EST Tissue specimen (specimen) PROSTATE / Unknown 09/10/2022 12:56 PM EST 09/10/2022 7:40 PM EST Tissue specimen (specimen) PROSTATE / Unknown 09/10/2022 12:57 PM EST 09/10/2022 7:40 PM EST Tissue specimen (specimen) PROSTATE / Unknown 09/10/2022 12:57 PM EST 09/10/2022 7:40 PM EST Tissue specimen (specimen) PROSTATE / Unknown 09/10/2022 12:58 PM EST 09/10/2022 7:39 PM EST Tissue specimen (specimen) PROSTATE / Unknown 09/10/2022 12:58 PM EST 09/10/2022 7:39 PM EST Tissue specimen (specimen) PROSTATE / Unknown 09/10/2022 12:59 PM EST 09/10/2022 7:39 PM EST us Zurdo Corley MD PATHOLOGY ORDERABLES Final Resul t Performing Organization Address City/State/[facility] Co de Phone Number [facility] [address] [phone] * MRI PROSTATE W WO CONTRAST (08/10/2022 4:19 PM EST) Anatomical Region Laterality Modality Magnetic Resonan ce 08/10/2022 4:19 PM EST Impressions 08/13/2022 1:28 PM EST PI-RADS 5 lesion left apex peripheral zone. Possible extracapsular extension. 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 Lesion marked fusion biopsy but accurate fusion/localization may be limited for reasons described above. - Note: Radiology results need to be interpreted within a comprehensive clinical context. If you have questions about the radiology report, please contact the office of the ordering clinician. . Narrative 08/13/2022 1:28 PM EST MRI PROSTATE W WO CONTRAST, 08/10/2022 4:19 PM CLINICAL HISTORY: R97.20-Elevated prostate specific antigen (PSA)-ICD-10-CM. COMPARISON: None. PROCEDURE COMMENTS: Multiplanar multiecho MR imaging of the region of the prostate. 15 cc dotarem administered. FINDINGS: There are several sources for potential artifact in this patient. 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 The motion artifact and the artifact related to the THR could make localization or fusion difficult/accurate. The prostate gland measures 5.4 x 3.8 x 4.7 cm corresponding to a prostate volume of 45 cc. In the left peripheral zone at the apex is a relatively large lesion measuring 1.9 cm in greatest dimension. It is hypointense on T2, hyperintense on diffusion hypointense and on ADC map images with early contrast enhancement. It abuts the capsule. Extracapsular extension is difficult to exclude with certainty but difficult to ascertain with reliability secondary to motion artifact. I'm suspicious of extracapsular extension. The seminal vesicles are normal. No adenopathy. This represents a PI-RADS 5 lesion. This has been labeled as region of interest (FLORECITA) #1 should fusion biopsy be considered. The seminal vesicles, lymph nodes and osseous structures are normal. Procedure Note Cedric Avery MD - 08/13/2022 MRI PROSTATE W WO CONTRAST, 08/10/2022 4:19 PM CLINICAL HISTORY: R97.20-Elevated prostate specific antigen(PSA)-ICD-10-CM. COMPARISON: None. PROCEDURE COMMENTS: Multiplanar multiecho MR imaging of the region ofthe prostate. 15 cc dotarem administered. FINDINGS: There are several sources for potential artifact in this patient. Motion artifact and artifact from left total hip replacements make image qualityless than ideal especially the diffusion and ADC map images. The motionartifact and the artifact related to the THR could make localization or fusion difficult/accurate. The prostate gland measures 5.4 x 3.8 x 4.7 cm corresponding to aprostate volume of 45 cc. In the left peripheral zone at the apex is a relativelylarge lesion measuring 1.9 cm in greatest dimension. It is hypointense on T2, hyperintense on diffusion hypointense and on ADC map images with earlycontrast enhancement. It abuts the capsule. Extracapsular extension is difficultto exclude with certainty but difficult to ascertain with reliabilitysecondary to motion artifact. I'm suspicious of extracapsular extension. The seminalvesicles are normal. No adenopathy. This represents a PI-RADS 5 lesion. This hasbeen labeled as region of interest (FLORECITA) #1 should fusion biopsy beconsidered. The seminal vesicles, lymph nodes and osseous structures are normal. IMPRESSION: PI-RADS 5 lesion left apex peripheral zone. Possible extracapsular extension. Limited study because of motion artifact and artifact secondaryto total hip replacement. Lesion marked fusion biopsy but accurate fusion/localization may be limited for reasons described above. - Note: Radiology results need to be interpreted within a comprehensiveclinical context. If you have questions about the radiology report, please contactthe office of the ordering clinician. . Zurdo Corley MD IMG MRI ORDERABLES Final Result * (ABNORMAL) POCT CO-OXIMETRY (05/30/2022 3:24 PM EDT) Only the most recent of3 resultswithin the time period is included. %HBO2 66.2(L) 94.0 - 98.0 % 05/30/2022 3:51 PM EDT [facility] Site RA 05/30/2022 3:51 PM EDT [facility] Blood BLOOD SPECIMEN / Unknown 05/30/2022 3:24 PM EDT 05/30/2022 3:51 PM EDT Dhiraj Wallace MD POINT OF CARE TEST INA PURCELLBRIGITTE Final Result [facility] [address] [place] [address] * CT CHEST ABDOMEN W CONTRAST (04/24/2022 4:04 PM EDT) Anatomical Region Laterality Modality Abdomen, Chest Computed Tomogra phy 04/24/2022 4:04 PM EDT Impressions 04/24/2022 7:25 PM EDT 1. Moderate to large hiatal hernia accounting for the chest x-ray abnormality. 2. Right pelvic kidney. 3. Superior endplate compression T11 and L1 consistent with fractures of indeterminate age. - Note: Radiology results need to be interpreted within a comprehensive clinical context. If you have questions about the radiology report, please contact the office of the ordering clinician. Narrative 04/24/2022 7:[address] CHEST ABDOMEN W CONTRAST, 04/24/2022 4:04 PM CLINICAL HISTORY: R22.2-Localized swelling, mass and lump, abfff-KVU-07-CM. COMPARISON: Chest x-ray 04/12/2022 PROCEDURE COMMENTS: Multidetector CT of the region of interest, per protocol. Dose 1 : CT DLP Total : 807.72 mGycm DLP Spiral Max : 556.84 mGycm Maximum CTDI Vol : 11.28 mGy FINDINGS: CHEST: Lungs are clear. No suspicious nodule or infiltrate. No endobronchial lesion. No abnormal hilar or mediastinal mass or adenopathy. No axillary adenopathy. No pericardial or pleural effusion. Moderate to large hiatal hernia present accounting for the abnormality on the chest x-ray. There is degenerative change of the spine. Superior endplate compression of L1 noted. No destructive lesion. ABDOMEN: There are several hepatic cysts present the largest measuring 10 mm. Spleen and pancreas are normal. Gallbladder unremarkable. Adrenals are normal. The left kidney is normal. Right kidney lies in a pelvic location. Aorta normal in course and caliber. No aneurysm. Gastrointestinal structures other than the hiatal hernia are unremarkable. No bowel distention or obstruction. No adenopathy or ascites. Advanced degenerative change and scoliosis lumbar spine. Superior endplate compression of L1 present. Procedure Note Bj Chao MD - 04/24/2022 CT CHEST ABDOMEN W CONTRAST, 04/24/2022 4:04 PM CLINICAL HISTORY: R22.2-Localized swelling, mass and lump,gnxar-HSD-35-CM. COMPARISON: Chest x-ray 04/12/2022 PROCEDURE COMMENTS: Multidetector CT of the region of interest, perprotocol. Dose 1 : CT DLP Total : 807.72 mGycm DLP Spiral Max : 556.84 mGycm Maximum CTDI Vol : 11.28 mGy FINDINGS: CHEST: Lungs are clear. No suspicious nodule or infiltrate. Noendobronchial lesion. No abnormal hilar or mediastinal mass or adenopathy. No axillaryadenopathy. No pericardial or pleural effusion. Moderate to large hiatal hernia present accounting for the abnormality on the chest x-ray. There is degenerativechange of the spine. Superior endplate compression of L1 noted. No destructivelesion. ABDOMEN: There are several hepatic cysts present the largest measuring 10mm. Spleen and pancreas are normal. Gallbladder unremarkable. Adrenals arenormal. The left kidney is normal. Right kidney lies in a pelvic location. Aortanormal in course and caliber. No aneurysm. Gastrointestinal structures other than the hiatal hernia are unremarkable.No bowel distention or obstruction. No adenopathy or ascites. Advanceddegenerative change and scoliosis lumbar spine. Superior endplate compression of F4svscebu. IMPRESSION: 1. Moderate to large hiatal hernia accounting for the chest x-rayabnormality. 2. Right pelvic kidney. 3. Superior endplate compression T11 and L1 consistent with fractures of indeterminate age. - Note: Radiology results need to be interpreted within a comprehensiveclinical context. If you have questions about the radiology report, please contactthe office of the ordering clinician. Dhiraj Wallace MD IMG CT ORDERABLES Final Result * CREATININE ISTAT (04/24/2022 3:58 PM EDT) Creatinine-iST AT 0.9 0.6 - 1.3 mg/dL 04/24/2022 7:05 PM EDT [facility] Blood BLOOD SPECIMEN / Unknown 04/24/2022 3:58 PM EDT 04/24/2022 7:05 PM EDT Dhiraj Wallace MD POINT OF CARE TEST ORDE RABLES Final Result [facility] [address] [place], [place] [id number] * XR CHEST PA AND LATERAL (04/12/2022 11:50 AM EDT) Only the most recent of3 resultswithin the time period is included. Anatomical Region Laterality Modality Chest Radiographic Jj ging 04/12/2022 11:5 0 AM EDT Impressions 04/12/2022 12:56 PM EDT No prior examination for comparison. Well-defined 8.7 x 8.7 cm rounded masslike area in the retrocardiac region likely representing a hiatal hernia, however underlying mass lesion or aortic pathology cannot be excluded. Further evaluation with CT of the abdomen recommended. Code CHARI Narrative 04/12/2022 12:56 PM EDT XR CHEST PA AND LATERAL CLINICAL: R06.02-Shortness of jakhjj-TIR-66-CM R01.1-Cardiac murmur, jcwpmjmodhe-GJX-00-CM R60.9-Edema, qveuhyvldni-AXK-87-CM Procedure Note Seamus Sorensen MD - 04/12/2022 XR CHEST PA AND LATERAL CLINICAL: R06.02-Shortness of cipqfz-UAL-39-CM R01.1-Cardiac murmur, tlkgdfdthkh-PQI-98-CM R60.9-Edema, eumnoybjkbr-JJK-35-CM IMPRESSION: No prior examination for comparison. Well-defined 8.7 x 8.7 cm rounded masslike area in the retrocardiacregion likely representing a hiatal hernia, however underlying mass lesion oraortic pathology cannot be excluded. Further evaluation with CT of the abdomen recommended. Code [facility] Dhiraj Wallace MD IMG DIAGNOSTIC IMAGING ORDERABLES Final Result * (ABNORMAL) URINE CULTURE (NO STAIN) (01/17/2022 1:04 PM EDT) Culture Positive Growth(A) 01/19/2022 11:10 PM EDT [facility] Culture 6000 CFU/mL Streptococcus anginosus SUSCEPTIB ILITY RESULT 01/19/2022 11:10 PM EDT [facility] Comment:No further workup. Urine URINE SPECIMEN COLLECTION, CLEAN CATCH / Unknown 01/17/2022 1:04 PM EDT 01/17/2022 1:04 PM EDT Zurdo Corley MD MICROBIOLOGY - GENERAL ORDERABLE S Final Result [facility] [address] [place] [address] , [place] [address] * INTRAOP AIRWAY PLACEMENT (07/12/2021 9:57 AM EST) Narrative [facility] - 07/12/2021 9:57 AM EST Manasa Deleon CRNA 07/12/2021 9:57 AM Intraop Airway Placement: Airway type: Nasal cannula salter Manasa Paulino Pancho CHAUDHRY CA ANESTHESIA Final Re sult Performing Organization Address [facility] de Phone Number [facility] [address] [place] [address] * Peripheral Block by Anesthesia (07/12/2021 9:55 AM EST) Narrative [facility] - 07/12/2021 9:55 AM EST Manasa Deleon CRNA 07/12/2021 9:56 AM Peripheral Block by Anesthesia Procedure Date/Time: 07/12/2021 9:50 AM Patient location during procedure: OR Reason for block: primary anesthetic Staff and Pre-procedure checks Anesthesiologist: Ezekiel Locke MD Resident/PRODUCT SAFETY AND STANDARDS ENGINEER: Manasa Deleon CRNA Performed: RICHA Preanesthetic Checklist: Allergies confirmed, Block plan confirmed, Necessary block equipment present, Supplemental O2 applied, if needed, Anticoagulant confirmed, Block site marked, Patient identified- 2 criteria, Surgical procedure consent verified, Aseptic technique used, Drug/solution labeled, HIRO recommended monitors applied, IV access functioning, Sedation given, if needed and Resuscitation equipment available Immediate perianesthetic assessment completed: Yes Patient position: Semi-recumbent Prep: Alcohol swabs Monitoring: BP, EKG, O2 Sat and Mental status assessed Peripheral Block Block type: Peribulbar Block Laterality: Right Injection technique: single-shot Medication: Lidocaine 2% and Hyaluronidase Needle Needle type: short-bevel Needle size: 25Gx5/8 Nerve localization: anatomical landmarks Assessment Block success: complete Heart rate change: no Blood aspirated: no Resistance on injection: normal Result [facility] Manasa Lora Pancho CHAUDHRY ANESTHESIA ORDERABLES Fi nal Result Performing Organization Address [facility] Co de Phone Number [facility] [address] [place] [address] * CORONAVIRUS 2019 (07/08/2021 10:32 AM EST) Only the most recent of2 resultswithin the time period is included. CORONAVIRUS [id number] Not Detected Not Detected 07/09/2021 1:56 PM EST [facility] Comment: Caution should be exercised when interpreting a result of 'Not Detected'. A result of 'Not Detected' does not rule out COVID-19 and cannot be used as sole basis for treatment or patient management decisions. If COVID-19 is still suspected following a 'Not Detected' result, re-testing should be considered. This test is a real-time RT-PCR test intended for the qualitative detection of nucleic acid from SARS-CoV-2 in upper respiratory samples collected from individuals suspected of COVID-19. Not Detected results do not preclude COVID-19 or other respiratory viruses and should not be used as the sole basis for treatment or other patient management decisions. Test is performed on the [employer] julia 6800 platform under the FDA's Emergency Use Authorization (EUA). Julia 6800 Fact Sheet for Providers: https://www.fda.gov/media/122796/download Julia 6800 Fact Sheet for Patients: https://www.fda.gov/media/876484/download Performed at [facility] [address] [place] [address]. [id number] CLIA [id number] Swab BOTH ANTERIOR NARES / Unknown 07/08/2021 10:32 AM EST 07/08/2021 10:32 AM EST Magdiel Alvarado MD MICROBIOLOGY - GENERAL ORDER ANEESH Final Result [email or web address] [address], [place] [address] * Peripheral Block by Anesthesia (06/26/2021 8:33 AM EST) Narrative [facility] - 06/26/2021 8:33 AM EST Elizabeth Hoyt CRNA 06/26/2021 8:35 AM Peripheral Block by Anesthesia Procedure Date/Time: 06/26/2021 8:23 AM Patient location during procedure: OR Reason for block: primary anesthetic and at surgeon's request Staff and Pre-procedure checks Anesthesiologist: Andres Mena MD Resident/PRODUCT SAFETY AND STANDARDS ENGINEER: Elizabeth Hoyt CRNA Performed: RICHA Preanesthetic Checklist: Allergies confirmed, Block plan confirmed, Necessary block equipment present, Supplemental O2 applied, if needed, Anticoagulant confirmed, Block site marked, Patient identified- 2 criteria, Surgical procedure consent verified, Aseptic technique used, Drug/solution labeled, HIRO recommended monitors applied, IV access functioning, Sedation given, if needed and Resuscitation equipment available Immediate perianesthetic assessment completed: Yes Patient position: Supine Prep: Alcohol swabs Monitoring: BP, EKG, O2 Sat and Mental status assessed Peripheral Block Block type: Peribulbar Block Laterality: Left Injection technique: single-shot Medication: Lidocaine 2% and Hyaluronidase Needle Needle type: short-bevel Needle size: 25Gx5/8 Nerve localization: anatomical landmarks Assessment Block success: complete Events: Uneventful Heart rate change: no Blood aspirated: no Paresthesia pain: absent Resistance on injection: normal Intermittent incremental injection LA at 5ml Andres Mena MD ANESTHESIA ORDERABLES Final Result Performing Organization Address [facility] de Phone Number [facility] [address] [place] [address] * INTRAOP AIRWAY PLACEMENT (06/26/2021 8:10 AM EST) Narrative [facility] - 06/26/2021 8:10 AM EST Elizabeth Hoyt CRNA 06/26/2021 8:30 AM Intraop Airway Placement: Airway type: Nasal cannula salter Elizabeth Perez CRNA CA ANESTHESIA Edited Resul t - Final Performing Organization Address [facility] Co de Phone Number [facility] [address] [place] [address] * SC US LOWER EXTREMITY VENOUS RIGHT (01/14/2018 11:00 AM EDT) Anatomical Region Laterality Modality Vascular, Thigh, Leg Vascular Im aging 01/14/2018 10:4 7 AM EDT Impressions 01/14/2018 1:19 PM EDT CONCLUSIONS No evidence of deep or superficial vein thrombosis right lower extremity. No evidence of deep vein thrombosis left common femoral vein. Harry Irby MD Narrative Procedure Note Harry Irby Jr., MD - 01/14/2018 IMPRESSION CONCLUSIONS No evidence of deep or superficial vein thrombosis right lowerextremity. No evidence of deep vein thrombosis left common femoral vein. Harry Irby MD Result [facility] Tramaine Espinosa MD IMG VASCULAR ORDERABLES Final Result * PULMONARY FUNCTION TEST (08/01/2017 9:28 AM EST) 08/01/2017 9:28 AM EST Impressions [facility] - 08/01/2017 9:28 AM EST Good patient effort and understanding. Acceptable results and reproducibility. SpHb=14.0 g/dL. Normal FEV1/FVC and TLC with a decrease in VC, consistent with OBESITY or POOR EFFORT. DIFFUSING CAPACITY IS NORMAL, corrected for hemoglobin. Clinical Correlation is Required. This data was interpreted based upon the 2005 ATS/ERS Task Force Position Statement: Interpretative Strategies for Lung Function Tests. electronically reviewed and verified Baljinder Caceres MD [facility] This section is an excerpt of the full report. us Tramaine Espinosa MD PFT ORDERABLES Final Result Performing Organization Address City/[facility] Co de Phone Number [facility] [address] [place] [address] * (ABNORMAL) LDL, CALCULATED (01/27/2016 11:00 AM EDT) Only the most recent of2 resultswithin the time period is included. LDL Calculated 111(H) <=100 mg/dL [facility] Comment: < 100 Optimal 100 - 129 Near or above optimal 130 - 159 Borderline High 160 - 189 High >= 190 Very High Blood specimen (specimen) 01/27/2016 11:00 AM EDT 01/27/2016 2:39 PM EDT us Lyn Joel MD CHEMISTRY ORDERABLES Final Result Performing Organization Address [facility] Co de Phone Number [facility] [address] [place] [address] * PROSTATE SPECIFIC ANTIGEN (SCREENING) (01/27/2016 11:00 AM EDT) Only the most recent of2 resultswithin the time period is included. Total PSA 4.15 ng/mL [facility] Comment: 2008 AUA Best Practice Statement Guidelines-Age Adjusted Reference Intervals: Age Range Whites Americans Americans 40-49 years 0-2.5 ng/mL 0-2.0 ng/mL 0-2.0 ng/mL 50-59 years 0-3.5 ng/mL 0-4.0 ng/mL 0-3.0 ng/mL 60-69 years 0-4.5 ng/mL 0-4.5 ng/mL 0-4.0 ng/mL 70-79 years 0-6.5 ng/mL 0-5.5 ng/mL 0-5.0 ng/mL [facility] uses the [employer] Total PSA assay, which is approved as an aid in detecting prostate cancer when used in conjunction with digital rectal exam in men 50 years or older and also as an adjunctive test to aid in the management of prostate cancer patients. Prostatic biopsy is required for the diagnosis of cancer. Values obtained with different assay methods should not be used interchangeably. Consider the above as guidelines only. The risk of prostate cancer is a continuum across a range of PSA levels, with increasing risk as the PSA increases. Blood specimen (specimen) UPPER LIMB STRUCTURE / Unknown 01/27/2016 11:00 AM EDT 01/27/2016 2:39 PM EDT Narrative [facility] - 01/27/2016 4:01 PM EDT Fax results to [phone] us Lyn Joel MD CHEMISTRY ORDERABLES Final Result Performing Organization Address City/State/[facility] Co de Phone Number [facility] [address] [place] [address] * THYROID STIMULATING HORMONE (01/27/2016 11:00 AM EDT) TSH 1.040 0.270 - 4.200 mcIU/mL [facility] Blood specimen (specimen) UPPER LIMB STRUCTURE / Unknown 01/27/2016 11:00 AM EDT 01/27/2016 2:39 PM EDT Narrative [facility] - 01/27/2016 3:50 PM EDT Fax results to [phone] us Lyn Joel MD CHEMISTRY ORDERABLES Final Result Performing Organization Address [facility] Co de Phone Number [facility] [address] [place] [address] * GMED COLONOSCOPY (11/16/2015 9:00 AM EDT) 11/16/2015 9:0 0 AM EDT Impressions [facility] - 11/16/2015 10:23 AM EDT Moderate diverticulosis of the the left side of the colon. Grade 1 internal hemorrhoids. Plan: Screening Colonoscopy in 10 years. High Fiber Diet. Soluble fiber is recommended for diarrhea and insoluble fiber is recommended for constipation. Follow-up with referring provider / physician This section is an excerpt of the full report. us Mason Ballard MD GI PROCEDURE ORDERABLES Fin al Result Performing Organization Address [facility] de Phone Number [address] [address] * SCANNED RADIOLOGY REPORT (03/17/2015 9:16 AM EDT) Anatomical Region Laterality Modality Other 03/17/2015 9:16 AM EDT us Unknown Unknown IMG DIAGNOSTIC IMAGING ORDERABLE S Final Result * NM MYOCARDIAL PERFUSION SPECT STRESS AND REST (03/16/2015 3:14 PM EDT) Anatomical Region Laterality Modality Nuclear Medicine 03/16/2015 1:21 PM EDT Impressions 03/16/2015 4:55 PM EDT IMPRESSIONS Normal left ventricular perfusion study. There is no exercise induced ischemia. Preserved left ventricular systolic function. Preserved right ventricular function. KIKE MAGAÑA MD Narrative Procedure Note Kike Magaña MD - 03/16/2015 IMPRESSION IMPRESSIONS Normal left ventricular perfusion study. There is no exercise inducedischemia. Preserved left ventricular systolic function. Preserved right ventricular function. KIKE MAGAÑA MD Lyn Joel MD IMG NM CARDIAC ORDERABLES F inal Result * ST STRESS TEST EXERCISE (03/16/2015 2:26 PM EDT) Anatomical Region Laterality Modality Cardiac Stress T esting 03/16/2015 2:09 PM EDT Impressions 03/16/2015 4:38 PM EDT Exercise ECG Report [place] Interpretive Statements Type of Test: Exercise Reason for Exam: sob Ordering Diagnosis: sob Resting HR: 102 Peak HR: 142 Resting B/P 143/83 Peak B/P 172/82 Arrhythmias: None Conclusion: 1. METS achieved 5.0 for a fair exercise tolerance 2. WALKED 4:30 MINUTES ON FULL NIMISHA PROTOCOL 3. Target HR achieved. 4. Termination of test due to fatigue; pt request to stop 5. Symptoms: no angina 6. Resting ECG: Normal sinus rhythm. Possible old anteroseptal IA. 7. Normal ECG response to exercise stress 8. Nuclear perfusion scan result reported separately. Electronically Signed On 03-16-2015 16:38:46 EDT by Kike Magaña MD Narrative Procedure Note Kike Magaña MD - 03/16/2015 IMPRESSION Exercise ECG Report [place] Interpretive Statements Type of Test: Exercise Reason for Exam: sob Ordering Diagnosis: sob Resting HR: 102 Peak HR: 142 Resting B/P 143/83 Peak B/P 172/82 Arrhythmias: None Conclusion: 1. METS achieved 5.0 for a fair exercise tolerance 2. WALKED 4:30 MINUTES ON FULL NIMISHA PROTOCOL 3. Target HR achieved. 4. Termination of test due to fatigue; pt request to stop 5. Symptoms: no angina 6. Resting ECG: Normal sinus rhythm. Possible old anteroseptal IA. 7. Normal ECG response to exercise stress 8. Nuclear perfusion scan result reported separately. Electronically Signed On 03-16-2015 16:38:46 EDT by Kike Magaña MD Lyn Joel MD IMG STRESS ORDERABLES Final Result * SCANNED LABS (03/21/2010 12:00 AM EDT) Narrative 03/21/2010 6:57 AM EDT Ordered by an unspecified provider. Transcriptions Unknown, Unknown - 03/21/2010 2:51 AM EDT us Unknown Unknown HEMATOLOGY ORDERABLES Final Resu lt * AUTO DIFF (03/20/2010 9:12 PM EDT) Neut Percent 45.1 40.0 - 70.0 % [facility] Lymph Percent 43.9 17.0 - 46.0 % [facility] [place] Percent 8.1 4.0 - 12.0 % [facility] Eos Percent 2.6 0.0 - 6.0 % [facility] Baso Percent 0.3 0.0 - 2.0 % [facility] Neut# 3.4 1.8 - 7.7 x10(3)/mcL [facility] Lymph# 3.3 1.0 - 4.8 x10(3)/mcL [facility] [place]# 0.6 0.0 - 1.3 x10(3)/mcL [facility] Eos# 0.2 0.1 - 0.5 x10(3)/mcL [facility] Baso# 0.0 0.0 - 0.2 x10(3)/[facility] Blood specimen (specimen) 03/20/2010 9:12 PM EDT 03/20/2010 9:12 PM EDT us Lyn Joel MD HEMATOLOGY ORDERABLES Final Result Performing Organization Address City/State/[facility] Co de Phone Number [facility] [address] [place] [address] * SCANNED OR REPORT (03/07/2010 12:00 AM EDT) Narrative 03/08/2010 9:51 AM EDT Ordered by an unspecified provider. Transcriptions Unknown, U - 03/07/2010 10:35 PM EDT us U Unknown PROCEDURE/MINOR SURGICAL ORDERAB LES Final Result * FL FLUORO 1 HOUR (12/22/2007 9:56 AM EDT) Anatomical Region Laterality Modality Other 12/22/2007 9:56 AM EDT Narrative 12/23/2007 5:38 AM EDT OR#8 WILL CALL WHEN READY FLUOROSCOPY- 1. Fluoroscopy was performed. The radiologist was not in attendance. No permanent images were obtained. This dictation is being made for record keeping purposes. Venipuncturist- TRANSCRIBED BY Layar Reading Radiologist- CHAD SINGH MD Released Date Time- 12/23/07537 Procedure Note Chad Singh - 10/06/2009 OR#8 WILL CALL WHEN READY FLUOROSCOPY- 1. Fluoroscopy was performed. The radiologist was not in attendance. No permanent images were obtained. This dictation is being made for record keeping purposes. Venipuncturist- TRANSCRIBED BY Layar Hanh Radiologist- CHAD SINGH MD Released Date Time- 12/23/07537 Cristóbal Fowler MD [facility] HISTORICAL Final Result * XR HIP PINNING IN OR (12/22/2007 9:56 AM EDT) Anatomical Region Laterality Modality Other 12/22/2007 9:56 AM EDT Narrative 12/22/2007 2:13 PM EDT OR#8 WILL CALL WHEN READY Left hip pinning 12/22/07- History- Possible fracture. Findings- 2 intraoperative films were performed. These show open reduction internal fixation of the left hip fracture. It is now held in normal alignment. Venipuncturist- GABY Schafer Radiologist- LANETTE DURANT MD Released Date Time- 12/22/07 1509 Procedure Note Lanette Durant - 10/06/2009 OR#8 WILL CALL WHEN READY Left hip pinning 12/22/07- History- Possible fracture. Findings- 2 intraoperative films were performed. These show open reduction internal fixation of the left hip fracture. It is now held in normal alignment. Venipuncturist- GABY Schafer Radiologist- LANETTE DURANT MD Released Date Time- 12/22/07 1509 Cristóbal Fowler MD [facility] HISTORICAL Final Result * CT HEAD 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 (12/21/2007 12:00 PM EDT) Anatomical Region Laterality Modality Other 12/21/2007 12:0 0 PM EDT Narrative 12/21/2007 2:[address] scan of the head without contrast 21 Dec 2007 at 1159 hours- Clinical history is patient fell down steps, now with laceration on the chin. Direct axial CT images of the brain were obtained at 5 mm without the administration of IV contrast. The brain is normal in attenuation and morphology. There is no evidence for intracranial hemorrhage, extra-axial fluid collection, focal mass or mass-effect. The ventricles are normal in size and configuration for age. Bony calvarium is grossly intact. Impression- Atrophy and chronic small vessel ischemic change. No evidence for an acute intracranial process. The emergency room was notified of the findings at the time of the exam. Venipuncturist- GABY Schafer Radiologist- NABIL PARMAR M.D. Released Date Time- 12/21/07 1909 Procedure Note Roselinewali Pancho R - 10/06/2009 CT scan of the head without contrast 21 Dec 2007 at 1159 hours- Clinical history is patient fell down steps, now with laceration on the chin. Direct axial CT images of the brain were obtained at 5 mm without the administration of IV contrast. The brain is normal in attenuation and morphology. There is no evidence for intracranial hemorrhage, extra-axial fluid collection, focal mass or mass-effect. The ventricles are normal in size and configuration for age. Bony calvarium is grossly intact. Impression- Atrophy and chronic small vessel ischemic change. No evidence for an acute intracranial process. The emergency room was notified of the findings at the time of the exam. Venipuncturist- GABY Schafer Radiologist- NABIL PARMAR M.D. Released Date Time- 12/21/071908 Jerry Stratton MD [facility] HISTORICAL Final Result * EK EKG REG (12/21/2007 11:57 AM EDT) Anatomical Region Laterality Modality Other 12/21/2007 11:5 7 AM EDT Narrative 12/21/2007 11:31 PM EDT FOR STAT EKG'S PAGE 133 Sinus tachycardia Normal ECG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
--- OUTSIDE RECORDS SUMMARY | 2025-04-19 10:27 | XMS_ITS | Encounter Summary ---
Author Organization [place] [address] Care Team Providers Care Deputy Juvenile Officer Name Role Phone Rolf Joel MD Primary Care Provider Nadine Moran RN Unavailable [phone] [facility] Un[facility] [phone] Encounter Details Date Type Department Care Team (Late st Contact Info) Description 11/16/2015 Orders Only [facility] [address] [facility] [address] [place], [place] [id number] Mason Ballard MD [address] [place] [address] Social History Tobacco Use Types Packs/Day Years Used Date Smoking Tobacco: Never Alcohol Use Standard Drinks/Week Comments Yes 0 (1 standard drink = 0.6 oz pur e alcohol) occasional Sex and Gender Information Value Date Recorded Sex Assigned at Not on file Legal Sex Male 10:22 AM EDT Gender Identity Not on file Sexual Orientation Not on file documented as of this encounter Plan of Treatment Upcoming Encounters Date Type Department Care Team (Late st Contact Info) Description 05/10/2025 9:45 AM EDT Appointment [facility] [address] [facility] [address] [place] [address] Paris Fontaine, STRAP MACHINE OPERATOR [address] [facility] [place], [place] [id number] 07/15/2025 10:45 AM EST Office Visit [facility] [address] [place] [address] Dhiraj Wallace MD [address] [facility] [place] [address] documented as of this encounter Procedures Procedure Name Priority Date/Time Associated Diagnosis Comments GMED COLONOSCOPY Routine 11/16/2015 9:00 AM EDT documented in this encounter Results * GMED COLONOSCOPY (11/16/2015 9:00 AM EDT) 11/16/2015 9:00 AM EDT Impressions [facility] - 11/16/2015 10:23 AM EDT Moderate [...] MD GI PROCEDURE ORDERABLES Fin al Result [facility] [address] [place] [address] documented in this encounter Visit Diagnoses Not on filedocumented in this encounter Care Teams Deputy Juvenile Officer Relationship Specialty Start Date End Date Rolf Joel MD PCP - General Family Medicine 03/15/15 Nadine Garcia, RN Oncology Nurse Navigator 09/24/22 12/25/22 Bj Gramajo MD [address] [facility] [place] [address] Radiation Oncologist Radiology-Radiation Oncology 11/03/24 documented as of this encounter
--- OUTSIDE RECORDS SUMMARY | 2025-04-19 10:27 | XMS_ITS | Encounter Summary ---
Author Organization [place] [address] Care Team Providers Care Awning Installer Name Role Phone Rolf Joel MD Primary Care Provider Bj Whitfield MD Unavailable [phone] Reason for Visit * Reason Onset Date Comments Medication Management 11/11/2024 Encounter Details Date Type Department Care Team (Late st Contact Info) Description 11/11/2024 Patient Outreach [facility] [address] [place], [place] [id number] [facility] Medication Management Social History Tobacco Use Types Packs/Day Years Used Date Smoking Tobacco: Never Smokeless Tobacco: Never Alcohol Use Standard Drinks/Week Comments Yes 6 (1 standard drink = 0.6 oz pur e alcohol) [facility] Utilities Answer Date Recorded In the past 12 months has e electric, gas, oil, or water company threatened to shut off services in your home? No 10/26/2024 Overall Financial Resource Strain (CARDIA) Answe r Date Recorded How hard is it for you to pa y for the very basics like food, housing, medical care, and heating? Not hard at all 10/26/2024 PHQ-2 Answer Date Recorded PHQ-2 Total Score 0 10/26/2024 [facility] [place] [facility] - Occupational Stress [...] money to get more. Never true 10/[facility]/20[facility] IP Transportation Answer D ate Recorded [...] Date Author No 10/26/2024 9:36 AM Valerie Chang RN documented in this encounter Progress Notes * Martine Gaston RP - 03/03/2025 9:19 AM EDT [facility]: Pharmacy Note 03/03/2025 9:19 AM LDL at goal less than 55 mg/dL. Pharmacy to close referral at this time. Thank you! Martine Gaston PharmD [facility] Farm Mechanic Pharmacist * Martine Gaston RPH - 02/19/2025 1:53 PM EDT [facility]: Pharmacy Note 02/19/2025 1:53 PM Spoke with Rolf to remind patient to complete repeat lipid panel. He expressed understanding and knows where to go to complete labs. Thank you! Martine Gaston PharmD [facility] Farm Mechanic Pharmacist a * Martine Gaston RPH - 11/11/2024 11:15 AM EDT Pharmacy Consult 11/11/2024 with Martine Gaston RPH: Rolf Benito was referred for lipid lowering therapy evaluation with pharmacist. Pharmacist spoke to patient telephonically. Patient was admitted on 10/25/2024 for a diagnosis of NSTEMI and underwent PCI with ASHLYN placement x1 to mid LAD . SUBJECTIVE Prior to hospital admission for NSTEMI patient was on the following lipid lowering therapy: No current LLT Patient (status-post NSTEMI) was subsequently discharged from the hospital on the following lipid lowering therapy: Statin: Atorvastatin 40 mg nightly Upon interview, patient admits to missing 1 doses of his lipid lowering medication(s) per week. Patient does not note any statin intolerance at this time. Patient denies the following barriers to adherence at this time: cognition, adverse drug reaction, convenience, cost, forgetfulness, none, other, see comment, patient refusal, patient understanding of disease state or therapy, hindu beliefs, and transportation. Patient endorses using a pill boxto assist with adherence. OBJECTIVE Lab Results Component Value Date CHOLESTEROL 144 10/26/2024 CHOLESTEROL 183 06/11/2023 CHOLESTEROL 209 (H) 01/27/2016 Lab Results Component Value Date HDL 52 10/26/2024 HDL 65 06/11/2023 HDL 80 01/27/2016 Lab Results Component Value Date LDLCALC 73 10/26/2024 LDLCALC 95 06/11/2023 LDLCALC 111 (H) 01/27/2016 Lab Results Component Value Date TRIG 104 10/26/2024 TRIG 133 06/11/2023 TRIG 88 01/27/2016 Lab Results Component Value Date ALT 18 10/25/2024 AST 76 (H) 10/25/2024 ALKPHOS 71 10/25/2024 Allergies Allergen Reactions Aspirin Other (See Comments) makes my stomach bleed per patient Very High Risk for Future ASCVD Events Risk Assessment Major ASCVD Events X Recent acute coronary syndrome (within the past 12 months) History of myocardial infarction (other than recent acute coronary syndrome event listed above) History of ischemic stroke Symptomatic peripheral arterial disease (history of claudication with ankle brachial index < 0.85, or previous revascularization or amputation) High-Risk Conditions X Age >/= 65yo Heterozygous familial hypercholesterolemia History of prior coronary artery bypass surgery or PCI outside of the major ASCVD event(s) Diabetes mellitus Hypertension Chronic kidney disease (eGFR 15-59mL/min/1.73 m2) Current smoking Persistently elevated LDL (LDL >/= 100mg/dL despite maximally tolerated statin therapy and ezetimibe) X History of congestive heart failure *Very High Risk includes a history of multiple major ASCVD events or one major ASCVD event and multiple high-risk conditions. ASSESSMENT Medication Adherence - Per discussion with patient he is adherent and tolerating medications. Encouraged continued use of morning/night routine with the pill box. Counseling Provided: Reviewed indication and importance of medication Discussed goal LDL <55 mg/dL per 2018 ACC/AHA Guidelines for Management of Blood Cholesterol [id number] ACC Expert Consensus. Discussed strategies to prevent missed doses of medication Patient encouraged to take medication at least 80% of the time, or aim for one missed dose of medication or less per week Encouraged continued adherence to medication regimen as prescribed (notify clinic if concerns with taking medication) Recommendations: Problem Pharmacist Recommendation Lipid Lowering Therapy Optimization Recommend continuation of atorvastatin 40 mg daily. Repeat Lipid Panel According to the 2018 ACC/AHA Guidelines for Management of Blood Cholesterol, adherence to changes in lifestyle and effects of LDL lowering medication should be assessed by measurement of fasting lipids 4 - 12 weeks after lipid lowering therapy initiation or dose adjustment and every 3 - 12 months thereafter based on need to assess efficacy, adherence or safety. Patient will be due for a repeat lipid panel on or about ~11/22/2024. Thank you for allowing me to participate in the care of this patient. Martine Gaston RPH 11/11/2024 11:15 AM documented in this encounter Miscellaneous Notes * Telephone Encounter - Rosalia Espinosa PharmD - 11/19/2024 11:02 AM EDT To my knowledge this information is accurate as of 11/19/2024 11:02 AM. Rosalia Espinosa PharmD 11/19/2024 11:02 AM documented in this encounter Plan of Treatment Upcoming Encounters Date Type Department Care Team (Late st Contact Info) Description 05/10/2025 9:45 AM EDT Appointment [facility] [address] [facility] [address] [place] [address] Paris Fontaine, WHIZZER HAND [address] [place] [address] 07/15/2025 10:45 AM EST Office Visit [facility] [address] [place] [address] Dhiraj Wallace MD [address] [place] [address] documented as of this encounter Visit Diagnoses Not on filedocumented in this encounter Additional Health Concerns Assessment Noted Time A fall risk assessment has been complete d for the patient 09/20/2022 8:28 AM EST documented as of this encounter Care Teams Awning Installer Relationship Specialty Start Date End Date Rolf Joel MD PCP - General Family Medicine 03/15/15 Bj Gramajo MD [address] [facility] [address] Radiation Oncologist Radiology-Radiation Oncology 11/03/24 documented as of this encounter
== END 2025-04-16 23:59 ==
LOC: LAB.DROPOF 04-19 10:06
PROVIDERS: PCP Family Medicine; Visit Provider Family Medicine
DX: I25.10 Atherosclerotic heart disease of native coronary artery without angina pectoris (principal); I10 Essential (primary) hypertension; N52.9 Male erectile dysfunction, unspecified; E29.1 Testicular hypofunction; Z11.59 Encounter for screening for other viral diseases
CPT/HCPCS: 80053; 80061; 84403; 85025; 86803; 87340; 87389